=== PATIENT | female | born 1950 | race African-American/Black ===

== ENCOUNTER → 2023-09-22 12:32 | Outpatient (REF) | payer MEDICARE, SELFPAY | LOC: EMG 12:32 | PROVIDERS: ATTENDING PHYSICIAN Specialist | DX: R20.0 Anesthesia of skin (principal); E11.44 Type 2 diabetes mellitus with diabetic amyotrophy | CPT/HCPCS: 95886; 95911 ==

== ENCOUNTER → 2023-11-15 14:15 | Outpatient (REF) | payer MEDICARE, SELFPAY | LOC: PAVMRI 14:15 | PROVIDERS: ATTENDING PHYSICIAN Specialist; FAMILY PHYSICIAN Family Medicine | DX: G54.1 Lumbosacral plexus disorders (principal) | CPT/HCPCS: 72197; A9575 ==

== ENCOUNTER → 2023-11-30 07:56 | Outpatient (REF) | payer MEDICARE, SELFPAY | LOC: RAD 07:56 | PROVIDERS: ATTENDING PHYSICIAN Specialist; FAMILY PHYSICIAN Family Medicine | DX: I73.9 Peripheral vascular disease, unspecified (principal) | CPT/HCPCS: 93925 ==

== ENCOUNTER 2024-07-20 13:06 | Inpatient (IN) | payer MEDICARE, SELFPAY ==
[2024-07-20 10:00] VITALS: BMI 21.8
[2024-07-20 10:02] VITALS: BP 138/93
--- NOTE | 2024-07-20 10:19 | ED.GENMED ---
History of Present Illness
General
Chief Complaint: Weakness
Time Seen by Provider: 07/20/24 10:02
History of Present Illness
History of Present Illness:
Patient is a 74-year-old woman with history myasthenia gravis, diabetes, hypothyroidism, hypertension, hyperlipidemia presenting to the emergency department weakness. Patient states that she developed right lower extremity weakness many years ago.
Recently she developed some weakness to her left lower extremity that started in her toes and ascended up to below her knee. She states that she is also developed some right upper extremity weakness and some difficulty swallowing. She went to her
neurosurgeon as she recently had a laminectomy who advised her to talk to her neurologist who thought it was related to her myasthenia gravis and increased her medications. However given the patient has been unable to ambulate patient was sent in
from rehab for further evaluation. Patient denies any recent trauma. No saddle anesthesia. No recent spinal injections. No worsening back pain. No urinary incontinence or retention.
Per chart review there is a note from Dr. Chan. She saw patient after her L4-L5 TLIF. She states that she is healing well from postsurgery however she was concerned about her extremity weakness and sent a message to Dr. Moraes her neurologist. There
is a message from Dr. moraes who notes that her right leg pain got better after the L4-L5 laminectomy but then she developed left leg and right hand weakness as well as dysphagia. She is concerned about her myasthenia gravis worsening so she increased
her Mestinon to 90 mg every morning and afternoon and 60 mg at noon and bedtime. She also increase her prednisone 35 mg every morning. She is on CellCept.
Phy Exam
Physical Exam
Physical Exam:
GENERAL: in no acute distress
HEENT: normocephalic, extraocular movements intact, moist oral mucosa
NECK: normal inspection
RESPIRATORY: no respiratory distress, clear to auscultation bilaterally
CARDIOVASCULAR: regular rate and rhythm
ABDOMEN/: soft, non-distended, non-tender to palpation, no rebound or guarding
EXTREMITIES: non-tender, no edema/swelling
NEUROLOGIC: alert and oriented x 3, cranial nerves II-XII intact, right upper extremity strength 3/5, left upper extremity strength 5/5, right lower extremity strength 0/5, left lower extremity strength 1/5, normal sensation to light touch, normal
[id number], gait not tested formally
SKIN: warm
Course
Orders/Labs/Results
Orders:
Orders
07/20/24 10:18
CT Head W/o Iv Contrast Urgent
Comment:
Reason For Exam: weakness
Bladder Scan- Treatment ONCE
Comment: post void
07/20/24 10:19
Electrocardiogram (*1) Urgent
Reason for Study: Fatigue / Weakness
EKG- Treatment ONCE
07/20/24 10:27
NEUROLOGY CONSULT Urgent
Consulting Provider: Kvng Beck
Was physician already notified: Yes
07/20/24 10:32
Complete Blood Count/With Diff Urgent
Comprehensive Metabolic Panel Urgent
Free T4 Urgent
Thyroid profile [TSH Reflex To Free T4] Urgent
07/20/24 11:03
Urinalysis Reflex To Culture Urgent
Date Specimen was Collected: 07/20/24
Time Specimen was Collected: 11:02
Urine Microscopic Reflex Cult Urgent
Urine Culture Urgent
JERMAINE Source: U
Specimen Description:
Date Specimen was Collected: 07/20/24
Time Specimen was Collected: 11:02
07/20/24 12:04
CeFAZolin 2 grams IV Push NOW CeFAZolin 2 GRAM [Ancef] 2 grams in 10 ml IV NOW
Abnormal Lab Results
07/20/24 07/20/24
10:32 11:03
WBC 12.5 H 10^3/uL
(4.8-10.8)
MCHC 32.0 L g/dL
(33.0-37.0)
Abs Immat Gran (auto) 0.1 H 10^3/uL
(0-0.05)
Absolute Neuts (auto) 9.6 H 10^3/uL
(1.4-6.5)
Neutrophils % 76.9 H %
(42.2-75.2)
Lymphocytes % 17.2 L %
(20.5-51.1)
Chloride 117 H mmol/L
(98-107)
BUN 25 H mg/dl
(7-17)
Glucose 135 H mg/dl
(70-99)
Total Protein 5.1 L g/dl
(6.3-8.2)
Albumin 3.0 L g/dl
(3.5-5.0)
TSH (Reflex) 5.47 H uIU/ml
(0.47-4.68)
Ur Occult Blood Reflex 4+ A
(Negative)
Urine Nitrite (Reflex) Positive A
(Negative)
Leukocyte Esterase Rfl 3+ A
(Negative)
Urine RBC 40-50 A /HPF
(0-2)
Urine WBC (Reflex) >100 A /HPF
(0-5)
Urine Bacteria (Reflex) Many A
(Negative)
Urine Albumin (Reflex) 2+ A
(Neg - Trace)
07/20/24 10:32
07/20/24 10:32
Vital Signs
Initial and Last Documented VS:
Initial Vital Signs
Temp Pulse Resp BP Pulse Ox
97.7 F 73 18 138/93 100
07/20/24 10:02 07/20/24 10:02 07/20/24 10:02 07/20/24 10:02 07/20/24 10:02
Last Documented Vital Signs
Temp Pulse Resp BP Pulse Ox
97.7 F 73 18 138/93 100
07/20/24 10:02 07/20/24 10:02 07/20/24 10:02 07/20/24 10:02 07/20/24 10:02
MDM/Problems Addressed
Differential Diagnosis Includes:
Patient is a 74-year-old woman presenting to the emergency department with worsening weakness. Vitals are unremarkable and exam does show weakness to the right upper extremity as well as the left lower extremity which is new from patient's baseline
of weakness to her right lower extremity. Differential is broad but consists of flare of myasthenia gravis versus CVA versus UTI or metabolic derangement. I did consider cauda equina or cord compression or osteomyelitis or discitis however less
likely. Will check blood work urine and CT scan of the head. Will obtain postvoid residual. I did discuss with neurology who evaluated patient at bedside.
*Critical Care Note
Total Time (30-74mins, 75-104mins- exclusive of procedures): Not Applicable
Update Note
Update Note:
CT scan of the head per my interpretation with no acute abnormality. Her urine does appear infected. Given the weakness and she does have slightly elevated WBC will treat with IV Ancef secondary to patient's dysphagia. Discussed with hospitalist
who accepted patient to their service.
ED Attending Note
-
Portions of this chart may have been created with voice recognition software.� Occasional wrong word or��sound alike� substitutions may have occurred due to the inherent limitations of voice recognition software.
Discharge Plan
Departure
Patient Disposition: Admit
Date of Disposition: 07/20/24
Time of Disposition: 12:07
Presentation/result/management discussed w/ accepting MD/DO: Hospitalist
Discharge Problem:
Weakness, Acute UTI
Prescriptions:
No Action
methocarbamol 500 mg Tablet
500 mg PO QIDPRN PRN (Reason: muscle spasms)
metformin 500 mg Tablet
500 mg PO BID
sennosides [senna] 8.6 mg Tablet
17.2 mg PO BIDPRN PRN (Reason: constipation)
ascorbic acid (vitamin C) [Vitamin C] 1,000 mg Tablet
1,000 mg PO DAILY
acetaminophen [Tylenol] 325 mg Tablet
650 mg PO Q6HPRN PRN (Reason: mild pain)
prednisone 10 mg Tablet
35 mg PO DAILY
alendronate [Fosamax] 70 mg Tablet
70 mg PO WE
cyanocobalamin (vitamin B-12) 1,000 mcg Tablet
2,000 mcg PO DAILY
mycophenolate mofetil 500 mg Tablet
1,000 mg PO BID
hydromorphone 2 mg Tablet
2 mg PO Q4HPRN PRN (Reason: severe pain)
magnesium hydroxide [Milk of Magnesia] 400 mg/5 mL Suspension
2,400 mg PO [id number] PRN (Reason: constipation)
calcium carbonate [Calcium 500] 500 mg calcium (1,250 mg) Tablet
500 mg PO DAILY
levothyroxine [Synthroid] 50 mcg Tablet
50 mcg PO DAILY
bisacodyl [Dulcolax (bisacodyl)] 10 mg Suppository
10 mg NE DAILYPRN PRN (Reason: if no bm aftr mom)
pantoprazole [Protonix] 40 mg Tablet,Delayed Release (Dr/Ec)
40 mg PO BID
pyridostigmine bromide 60 mg Tablet
150 mg PO BID
lisinopril 10 mg Tablet
10 mg PO DAILY
Fleet Enema 19-7 gram/118 mL Enema
118 ml NE DAILYPRN PRN (Reason: if no bm aftr dulcalox)
docusate sodium [Colace] 100 mg Capsule
100 mg PO BID
morphine 15 mg Tablet Extended Release
15 mg PO Q12H
ondansetron [Zofran ODT] 4 mg Tablet,Disintegrating
4 mg PO Q6HPRN PRN (Reason: nausea)
enoxaparin [Lovenox] 40 mg/0.4 mL Syringe
40 mg SC DAILY
rosuvastatin [Crestor] 20 mg Tablet
20 mg PO DAILY
duloxetine [Cymbalta] 30 mg Capsule,Delayed Release(Dr/Ec)
30 mg PO BID
gabapentin 400 mg Tablet
800 mg PO TID
zinc oxide Paste
1 ea TOPICAL TID
zinc oxide Paste
1 ea TOPICAL DAILYPRN PRN (Reason: b/l buttock)
cholecalciferol (vitamin D3) [Vitamin D3] 50 mcg (2,000 unit) Capsule
50 mcg PO DAILY
menthol-zinc oxide [Moisture Barrier Ointment] 0.44-20.6 % Ointment
1 applic TOPICAL TID
Referrals:
PRIVATE,PHYSICIAN [Family Provider] -
Interventions
Interventions:
*Risk Screen - Suicide Last Done: 07/20/24 10:06
*Neglect/Abuse Screening Last Done: 07/20/24 10:06
Discharge Date and Time
Print Language: GREEK
[2024-07-20 10:44] LABS: % Basophils 0.2 % (0-2); % Eosinophils 0.3 % (0-6); % Immature Granulocytes 0.5 % (0-0.5); % Lymphocytes 17.2 % (20.5-51.1); % Monocytes 4.9 % (1.7-9.3); % Neutrophils 76.9 % (42.2-75.2); Absolute Immature Granulocytes 0.1 10^3/uL (0-0.05); Absolute Lymphocytes 2.2 10^3/uL (1.2-3.4); Absolute Monocytes 0.6 10^3/uL (0.1-0.6); Absolute Neutrophils 9.6 10^3/uL (1.4-6.5); Hematocrit 39.4 % (37.0-47.0); Hemoglobin 12.6 g/dL (12.0-16.0); Mean Corpuscular Hgb 29.2 pg (27.0-31.0); Mean Corpuscular Volume 91.2 fL (81.0-99.0); Mean Platelet Volume 9.5 fL (7.4-10.4); Nucleated Red Blood Cells % 0 %; Platelet Count 243 10^3/uL (130-400); Red Blood Cell Count 4.32 10^6/uL (4.20-5.40); Red Cell Dist. Width 14.3 % (11.5-14.5); White Blood Cell Count 12.5 10^3/uL (4.8-10.8)
[2024-07-20 10:58] LABS: ALT (SGPT) < 10 U/L (0-35); AST (SGOT) 15 U/L (14-36); Alkaline Phosphatase 126 U/L (38-126); Blood Urea Nitrogen 25 mg/dl (7-17); Calcium 9.2 mg/dl (8.4-10.2); Carbon Dioxide 27 mmol/L (22-30); Chloride 117 mmol/L (98-107); Estimated Creatinine Clearance 53 ml/min; Glucose 135 mg/dl (70-99); Potassium 4.9 mmol/L (3.5-5.1); Sodium 138 mmol/L (135-145); Total Bilirubin 0.4 mg/dl (0.2-1.3); Total Protein 5.1 g/dl (6.3-8.2); eGFR > 60.00
[2024-07-20 11:29] LABS: TSH Reflex To Free T4 5.47 uIU/ml (0.47-4.68)
[2024-07-20 11:34] LABS: Urine Albumin 2+ (Neg - Trace); Urine Bilirubin Negative (Negative); Urine Character Slightly Cloudy (Clear); Urine Color Yellow; Urine Glucose Negative (Negative); Urine Ketone Negative (Negative); Urine Leukocyte 3+ (Negative); Urine Nitrite Positive (Negative); Urine Occult Blood 4+ (Negative); Urine Urobilinogen Negative (Neg - 1+)
[2024-07-20 11:59] LABS: Urine Amorphous Seen; Urine Squamous Cell 21-25 /LPF (Few); Urine Urothelial Cell 16-20 /LPF (FEW)
[2024-07-20 11:59] LABS: Free T4 1.52 ng/dl (0.78-2.19)
[2024-07-20 12:01] LABS: Urine Red Blood Cell 40-50 /HPF (0-2)
[2024-07-20 12:02] LABS: Urine Bacteria Many (Negative); Urine White Cell >100 /HPF (0-5)
--- NOTE | 2024-07-20 12:12 | HPS.HSE ---
Family Physician
-
Family Physician: PHYSICIAN PRIVATE
Chief Complaint
-
progressively worsening weakness
History of Present Illness
74-year-old woman with history myasthenia gravis, diabetes, hypothyroidism, hypertension, hyperlipidemia presenting to the emergency department weakness. Patient states that she developed right lower extremity weakness many years ago. she developed
some weakness to her left lower extremity that started in her toes prior to her laminectomy but the weakness to left LE worsens since the surgery. She states that she is also developed some right upper extremity weakness and some difficulty
swallowing. she feels like her pills and food getting stuck. She went to her neurosurgeon as she recently had a laminectomy who advised her to talk to her neurologist who thought it was related to her myasthenia gravis and increased her
medications. Mestinon to 90 mg every morning and afternoon and 60 mg at noon and bedtime. She also increase her prednisone 35 mg every morning. She is on CellCept. However given the patient has been unable to ambulate patient was sent in from
rehab for further evaluation. Patient denies any recent trauma. No saddle anesthesia. No recent spinal injections. No worsening back pain. No urinary incontinence or retention. denied fever, chills, chest pain, sob. denied abdominal
pain,n,v,d.stated burning with urination since Yesterday.
head CT with no acute findings. UA positive. started on Ancef. admitting for further management.
Medical History
Past Medical History
Past Medical History: Reports Other
Additional Past Medical History:
Hypertension
Breast cancer
Diabetes
Hypothyroidism
Hypertension
Left breast hyperplasia
Past Surgical History: Reports Other
Additional Past Surgical History:
Bowel resection
Knee replacement
Thyroidectomy
Tubal ligation
Hip replacement
Left nipple exploration and excision of central duct
Social History
Tobacco: Non-smoker
Alcohol: None
Drug: None
Living: Other (rehab)
Family History
Family History: Not pertinent
Allergies / Home Medications
Allergies reflects when Allergies were last updated in [facility].
Home Medications with original date entered in [facility]
Allergy/Medication List:
Allergies
Allergy/AdvReac Type Severity Reaction Status Date / Time
aspirin Allergy Unknown Verified 07/20/24 10:01
oxycodone Allergy Unknown Verified 07/20/24 10:01
Home Medications
acetaminophen 325 mg tablet (Tylenol) 650 mg PO Q6HPRN PRN mild pain 07/20/24
alendronate 70 mg tablet (Fosamax) 70 mg PO WE 07/20/24
ascorbic acid (vitamin C) 1,000 mg tablet (Vitamin C) 1,000 mg PO DAILY 07/20/24
bisacodyl 10 mg rectal suppository (Dulcolax (bisacodyl)) 10 mg VT DAILYPRN PRN if no bm aftr mom 07/20/24
calcium carbonate 500 mg PO DAILY 07/20/24
cholecalciferol (vitamin D3) 50 mcg (2,000 unit) capsule (Vitamin D3) 50 mcg PO DAILY 07/20/24
cyanocobalamin (vitamin B-12) 1,000 mcg tablet 2,000 mcg PO DAILY 07/20/24
docusate sodium 100 mg capsule (Colace) 100 mg PO BID 07/20/24
duloxetine 30 mg capsule,delayed release (Cymbalta) 30 mg PO BID 07/20/24
enoxaparin 40 mg/0.4 mL subcutaneous syringe (Lovenox) 40 mg SC DAILY 07/20/24
gabapentin 400 mg tablet 800 mg PO TID 07/20/24
hydromorphone 2 mg tablet 2 mg PO Q4HPRN PRN severe pain 07/20/24
levothyroxine 50 mcg tablet (Synthroid) 50 mcg PO DAILY 07/20/24
lisinopril 10 mg tablet 10 mg PO DAILY 07/20/24
magnesium hydroxide 400 mg/5 mL oral suspension (Milk of Magnesia) 2,400 mg PO [id number] PRN constipation 07/20/24
menthol 0.44 %-zinc oxide 20.6 % topical ointment (Moisture Barrier Ointment) 1 applic topical TID 07/20/24
metformin 500 mg tablet 500 mg PO BID 07/20/24
methocarbamol 500 mg tablet 500 mg PO QIDPRN PRN muscle spasms 07/20/24
morphine 15 mg tablet,extended release 15 mg PO Q12H 07/20/24
mycophenolate mofetil 500 mg tablet 1,000 mg PO BID 07/20/24
ondansetron 4 mg disintegrating tablet 4 mg PO Q6HPRN PRN nausea 07/20/24
pantoprazole 40 mg tablet,delayed release (Protonix) 40 mg PO BID 07/20/24
prednisone 10 mg tablet 35 mg PO DAILY 07/20/24
pyridostigmine bromide 60 mg tablet 150 mg PO BID 07/20/24
rosuvastatin 20 mg tablet (Crestor) 20 mg PO DAILY 07/20/24
sennosides 8.6 mg tablet (senna) 17.2 mg PO BIDPRN PRN constipation 07/20/24
sodium phosphates 19 gram-7 gram/118 mL enema (Fleet Enema) 118 ml VT DAILYPRN PRN if no bm aftr dulcalox 07/20/24
zinc oxide 1 ea topical DAILYPRN PRN b/l buttock 07/20/24
zinc oxide 1 ea topical TID b/l buttock 07/20/24
Review of Systems
-
Constitutional: Reports No Symptoms
EENT: Reports No Symptoms
Respiratory: Reports No Symptoms
Cardiac: Reports No Symptoms
Abdomen/GI: Reports No Symptoms
: Reports No Symptoms
Musculoskeletal: Reports No Symptoms
Skin: Reports No Symptoms
Neurological: Reports Weakness
Endocrine: Reports No Symptoms
Hematologic/Lymphatic: Reports No Symptoms
Psych: Reports No Symptoms
Physical Exam
Vital Signs
Vital Signs
Temp Pulse Resp BP Pulse Ox
97.7 F 73 18 138/93 100
07/20/24 10:02 07/20/24 10:02 07/20/24 10:02 07/20/24 10:02 07/20/24 10:02
Physical Exam
General: Well Developed, Well Nourished and No Apparent Distress
HEENT: NormoCephalic, Moist mucous membranes and Atraumatic
Respiratory: Clear
Cardiac: S1/S2 and Regular Rhythm; No Murmur or Rub
GI: Soft, Non Tender, Non Distended and Normal Bowel Sounds; No Organomegaly
Rectal: Deferred by Provider
Musculoskeletal: No Clubbing, No Cyanosis and No Edema
Skin: No Rash
Neuro: Other (all extremities are weak)
Psych: Calm
Laboratory Results
-
07/20/24 10:32
07/20/24 10:32
Laboratory Results
Total Bilirubin 0.4 mg/dl (0.2-1.3) 07/20/24 10:32
AST 15 U/L (14-36) 07/20/24 10:32
ALT < 10 U/L (0-35) 07/20/24 10:32
Alkaline Phosphatase 126 U/L (38-126) 07/20/24 10:32
Data Reviewed
-
CT Scan: Report Reviewed by me
Lab Data: Labs Reviewed by me
Impression/Plan
-
#Right upper extremities and left lower extremities Weakness//Dysphagia r/o CVA/ Myasthenia gravis flare
-head CT with no acute intracranial abnormality
-PT OT
-Speech consult obtain A1c, lipid
-Obtain MRI
-Aspirin and statin continued
-Neurology consulted
-keep patient NPO, until speech evaluated
#History of myasthenia gravis
-meds from home continued
#Weakness globally secondary to urinary tract fraction
-WBCs 12.5, positive UA
-Ancef in ER. continue Ancef
-Tylenol prn for fever and pain
#Depression
Cymbalta continued
# Chronic pain
# Recent laminectomy
-Gabapentin continued
-Dilaudid, morphine continued
# Hypothyroidism
-Levothyroxine continued
-TSH elevated due to acute infection
# Hypertension
-Lisinopril continued with hold parameters
# Type 2 diabetes
-Metformin continued
-Sliding scale
-CHO diet
# GERD
-PPI continued
#hyperlipidemia
-Statin continued
# DVT prophy
-Lovenox
#CODE STATUS
-Full code
[2024-07-20] MEDS: ANCEF 10 IV (12:21)
--- NOTE | 2024-07-20 12:53 | W.PN.UPDATE ---
Update Note
Progress Note Update
This note serves as an addendum to the H&P by digital marketing manager RACHELLE
Earlene JAZZY
HPI
74F HX myasthenia gravis, diabetes, hypothyroidism, hypertension, hyperlipidemia, recent laminectomy seen at ER for weakness:
- Known chronic right lower extremity weakness for many years
- Recently she developed some weakness to left lower extremity that started in her toes and ascended up to below knee
- also some right upper extremity weakness
- associated some difficulty swallowing.
- Evaluated OP by Dr Hood ( P Neurologist) increased her medications for MG flare up
- However given the patient has been unable to ambulate patient was sent in from rehab for further evaluation. \\
Reviewed chart :
N Surgeon Dr. Chan
- saw patient after her L4-L5 TLIF.
- She states that she is healing well from postsurgery however she was concerned about her extremity weakness and sent a message to Dr. Hood her neurologist.
Primary Neuro: Dr. Hood
- Chr right leg pain got better after the L4-L5 laminectomy
- then she developed left leg and right hand weakness as well as dysphagia.
- concerned about her myasthenia gravis worsening
- so she increased her Mestinon to 90 mg every morning and afternoon and 60 mg at noon and bedtime.
- also increase her prednisone 35 mg every morning.
- on MACH[employer] CELLOPHANER CellCept.
ROS:
- denies any recent trauma
- No saddle anesthesia.
- No recent spinal injections.
- No worsening back pain.
- No urinary incontinence or retention.
PHX; see above
Reviewed VS: unremarkable
PE
Gen:Not toxic
HEENT: symmetric face . Nl speech
Neck: supple
Lungs: CTA
Cor: RRR S1 S2
Abdomen: Benign exam
LEGAL BILLING ANALYST: alert and oriented x 3
CN II-XII intact
Motor: RUEx strength 3/5 LUEx strength 5/5
RLEx strength 0/5 LLEx strength 1/5
Sensory: normal sensation to light touch
Coordination: normal [id number]
Gait: not tested formally
MS: no edema
Psych: normal mood and affect
Laboratory Tests
07/20/24 07/20/24
10:32 11:03
WBC 12.5 H
Creatinine 0.9
eGFR > 60.00
Glucose 135 H
Albumin 3.0 L
TSH (Reflex) 5.47 H
Urine Clarity Slightly cloudy
Urine Nitrite (Reflex) Positive A
Urine RBC 40-50 A
Urine WBC (Reflex) >100 A
Urine Bacteria (Reflex) Many A
UCx sent
HCT: No acute intracranial abnormality noted.
EKG:
NORMAL SINUS RHYTHM
RIGHT BUNDLE BRANCH BLOCK
LEFT ANTERIOR FASCICULAR BLOCK
BIFASCICULAR BLOCK
LEFT VENTRICULAR HYPERTROPHY WITH REPOLARIZATION ABNORMALITY ( R in aVL )
ABNORMAL ECG
WHEN COMPARED WITH ECG OF 20-JUN-2014 11:05,
NO SIGNIFICANT CHANGE WAS FOUND
NO PRIOR hospitalist admission:
ASSESSMENT & PLAN
74F HX Myasthenia Gravis , recent Laminectomy with improved chr b/l radiculopathic pain , recent OP escalation of Rx for OP MS flare but worsening Abimael weakness, dysphagia of thin liquids and pills and acute on chronic gait dysfunction:
Recent OP escalation of Rx for OP MS flare but worsening Abimael weakness, dysphagia and acute gait dysfunction
Dysphagia of thin liquids and pills
Differential is broad: flare of myasthenia gravis versus CVA versus UTI or metabolic derangement
- c/w current OP MG Rx:
- MACHINE BANDER AND CELLOPHANER Mestinon to 90 mg every morning and afternoon plus 60 mg at noon and bedtime.
- MACHINE B[employer] CELLOPHANER prednisone 35 mg every morning.
- c/w MACHINE BANDER AND CELLOPHANER Mycophenolate
- c/w MACHINE BANDER AND CELLOPHANER Pyridostigmine
- NPO except Medications with apple sause till ST consult eval for swallowing
- Neuro f/u consult
US suggestive of UTI suspect precipitating the MG flare up
- Afebrile
- f/u UCx
- agree with IV Cefazolin
Leucocytosis : could be due to Steroids or UTI or both
- trend WCC and T curve
HX DMT2
- c/w MACHINE BANDER AND CELLOPHANER Metformin
- add ISS low
Elevated TSH likely due to current stetroids and acute infection
HX hypothyroidism
- c/w current LT4 50 mcg daily, no need to escalde the dose
HX hypertension
- c/w MACH[employer] B[employer] CELLOPHANER lisinopril
HX hyperlipidemia
- c/w Crestor
Recent L4 L5 laminectomy
Hx chronic Narcotic dependent b/l radiculopathic pain
- c/w MACHINE BANDER [employer] CELLOPHANER Gabapentin and MACHINE BANDER AND CELLOPHANER Morphine q12H
- c/w MACH[employer] BANDER [employer] CELLOPHANER BW regime
- PT consult
DVT Px: LMWH
Code: Full
IMU due to MG flare concernig with risk of progressive resp muscle weakness
[2024-07-20 13:00] VITALS: BP 129/82
[2024-07-20 14:00] VITALS: BP 107/78
--- NOTE | 2024-07-20 15:22 | CON.NEURO ---
Neuro Assessment/Plan
Assessment
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
cannot be worsening of her MG as MG has no sensory symptoms
NIF -50, vital capacity 2.1 L
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
Plan
Spoke with Dr Woods, EMG Tuesday
currently refusing LP due to back pain when moving
so no IVIG, [facility] doesn't do synthetic albumin so no PLEX
third line agent would be...rituximab (not formulary) or cyclophosphamide
Consultation
Order
Date of Consultation: 07/20/24
Requesting Provider: Loki Sosa
Reason for Consult: weakness
Subjective/Objective
Subjective Data
Date of Service: July 20, 2024
Patient is a 74-year-old woman with history myasthenia gravis, diabetes, hypothyroidism, hypertension, hyperlipidemia presenting to the emergency department weakness. Patient states that she developed right lower extremity weakness many years ago,
and low back pain. She had a laminectomy and L4-L5 TLIF with neurosurgeon Dr Chan, after which her back pain improved but right leg weakness was unchanged. She improved and did ambulate with walker. Patient reports 6 weeks of progressive weakness
in her left leg, beginning in the foot and ascending. later developed right arm weakness, and more recently dysphagia. no bowel or bladder symptoms.
Yesterday she saw Dr Chan in the office hardware looked good, called patient's primary neurologist Dr Hood who spoke to patient by phone and was concerned for MG exacerbation, increased mestinon to 90/60/60 and prednisone to 35, and continued
CellCept. Notes from Dr Hood say
Objective Data
Vital Signs
Temp Pulse Resp BP Pulse Ox
36.5 C 69 15 107/78 99
07/20/24 10:02 07/20/24 14:50 07/20/24 14:50 07/20/24 14:00 07/20/24 14:01
Lab Results
07/20/24 10:32
07/20/24 10:32
Sodium 138 mmol/L (135-145) 07/20/24 10:32
Potassium 4.9 mmol/L (3.5-5.1) 07/20/24 10:32
BUN 25 mg/dl (7-17) H 07/20/24 10:32
Glucose 135 mg/dl (70-99) H 07/20/24 10:32
Calcium 9.2 mg/dl (8.4-10.2) 07/20/24 10:32
Patient Allergies
aspirin Allergy (Verified 07/20/24 10:01)
Unknown
oxycodone Allergy (Verified 07/20/24 10:01)
Unknown
Physical Exam
-
AAOx3, speech clear, language intact
VFF, EOMI, face symmetric
RUE 3-4/5 LUE 5-/5
b/l LE 1/5 palpated contractions only
Sensory decreased pin/vib RUE and b/l LE
DTR 2+ upper, surgically absent knees, no ankle jerk, no merritt, no babinski
Medications
-
Active Medications
Generic Name Dose Route Start Last Admin
Trade Name Freq PRN Reason Stop Dose Admin
Acetaminophen 650 mg 07/20/24 13:23
Acetaminophen 650 Mg Rectal Suppository RECTAL 08/17/24 13:22
Q4HPRN PRN
MORRIS, mild pain, or temp >100.4F
Acetaminophen 650 mg 07/20/24 13:23
Acetaminophen 325 Mg Tablet PO 08/17/24 13:22
Q4HPRN PRN
MORRIS, mild pain, or temp >100.4F
Ascorbic Acid 1,000 mg 07/21/24 08:00
Ascorbic Acid 500 Mg Tablet PO 08/18/24 07:59
DAILY JESSIE
Calcium Carbonate 500 mg 07/21/24 08:00
Calcium Carbonate 500 Mg Tablet PO 08/18/24 07:59
DAILY JESSIE
Cholecalciferol 50 mcg 07/21/24 08:00
Cholecalciferol (Vitamin D3) 50 Mcg Tablet (2,000 Units) PO 08/18/24 07:59
DAILY JESSIE
Cyanocobalamin 2,000 mcg 07/21/24 08:00
Cyanocobalamin 1,000 Mcg Tablet PO 08/18/24 07:59
DAILY JESSIE
Dextrose 12.5 grams 07/20/24 13:23
Dextrose 50% (0.5 Grams/Ml) 50 Ml Syringe IV 08/17/24 13:22
[id number] PRN
hypoglycemia
Protocol
Docusate Sodium 100 mg 07/20/24 20:00
Docusate Sodium 100 Mg Capsule PO 08/17/24 19:59
BID JESSIE
Duloxetine HCl 30 mg 07/20/24 20:00
Duloxetine Delayed Release 30 Mg Capsule PO 08/17/24 19:59
BID JESSIE
Enoxaparin Sodium 40 mg 07/21/24 08:00
Enoxaparin Sodium 40 Mg/0.4 Ml Syringe SC 08/18/24 07:59
DAILY JESSIE
Gabapentin 800 mg 07/20/24 16:00
Gabapentin 400 Mg Capsule PO 08/17/24 15:59
TID JESSIE
Glucagon 1 mg 07/20/24 13:23
Glucagon 1 Mg Vial IM 08/17/24 13:22
PRN PRN
hypoglycemia
Protocol
Hydromorphone HCl 2 mg 07/20/24 13:23
Hydromorphone 2 Mg Tablet PO 08/03/24 13:22
Q4HPRN PRN
severe pain
Insulin Aspart 0 units 07/20/24 16:30
Insulin Aspart Low Resistance 300 Units/3 Ml Pen.Injctr SC 08/17/24 16:29
AC JESSIE
Protocol
Levothyroxine Sodium 50 mcg 07/21/24 06:00
Levothyroxine 50 Mcg Tablet PO 08/18/24 05:59
DAILY @ 0600 JESSIE
Lisinopril 10 mg 07/21/24 08:00
Lisinopril 10 Mg Tablet PO 08/18/24 07:59
DAILY JESSIE
Metformin HCl 500 mg 07/20/24 17:00
Metformin 500 Mg Regular Release Tablet PO 08/17/24 16:59
BID AT 0800,1700 JESSIE
Morphine Sulfate 15 mg 07/20/24 20:00
Morphine 15 Mg Extended Release Tablet PO 08/03/24 19:59
Q12 JESSIE
Mycophenolate Mofetil 1,000 mg 07/20/24 20:00
Mycophenolate 500 Mg Tablet PO 08/17/24 19:59
BID JESSIE
Pantoprazole Sodium 40 mg 07/20/24 20:00
Pantoprazole 40 Mg Delayed Release Tablet PO 08/17/24 19:59
BID JESSIE
Prednisone 30 mg/ Prednisone 5 35 mg 07/21/24 08:00
mg PO 08/18/24 07:59
DAILY JESSIE
Pyridostigmine [place] 150 mg 07/20/24 20:00
Pyridostigmine 60 Mg Tablet PO 08/17/24 19:59
BID JESSIE
Rosuvastatin Calcium 20 mg 07/21/24 08:00
Rosuvastatin (Crestor) 20 Mg Tablet PO 08/18/24 07:59
DAILY JESSIE
Sodium Chloride 0 flush 07/20/24 14:00
Sodium Chloride 0.9% (Flush) Syringe IV 08/17/24 13:59
PER PROTOCOL JESSIE
Home Medications
�Medication �Instructions �Recorded
acetaminophen 325 mg tablet 650 mg PO Q6HPRN PRN mild pain 07/20/24
(Tylenol)
alendronate 70 mg tablet (Fosamax) 70 mg PO WE 07/20/24
ascorbic acid (vitamin C) 1,000 mg 1,000 mg PO DAILY 07/20/24
tablet (Vitamin C)
bisacodyl 10 mg rectal suppository 10 mg VA DAILYPRN PRN if no bm 07/20/24
(Dulcolax (bisacodyl)) aftr mom
calcium carbonate 500 mg PO DAILY 07/20/24
cholecalciferol (vitamin D3) 50 50 mcg PO DAILY 07/20/24
mcg (2,000 unit) capsule (Vitamin
D3)
cyanocobalamin (vitamin B-12) 2,000 mcg PO DAILY 07/20/24
1,000 mcg tablet
docusate sodium 100 mg capsule 100 mg PO BID 07/20/24
(Colace)
duloxetine 30 mg capsule,delayed 30 mg PO BID 07/20/24
release (Cymbalta)
enoxaparin 40 mg/0.4 mL 40 mg SC DAILY 07/20/24
subcutaneous syringe (Lovenox)
gabapentin 400 mg tablet 800 mg PO TID 07/20/24
hydromorphone 2 mg tablet 2 mg PO Q4HPRN PRN severe pain 07/20/24
levothyroxine 50 mcg tablet 50 mcg PO DAILY 07/20/24
(Synthroid)
lisinopril 10 mg tablet 10 mg PO DAILY 07/20/24
magnesium hydroxide 400 mg/5 mL 2,400 mg PO [id number] PRN 07/20/24
oral suspension (Milk of Magnesia) constipation
menthol 0.44 %-zinc oxide 20.6 % 1 applic topical TID 07/20/24
topical ointment (Moisture Barrier
Ointment)
metformin 500 mg tablet 500 mg PO BID 07/20/24
methocarbamol 500 mg tablet 500 mg PO QIDPRN PRN muscle spasms 07/20/24
morphine 15 mg tablet,extended 15 mg PO Q12H 07/20/24
release
mycophenolate mofetil 500 mg tablet 1,000 mg PO BID 07/20/24
ondansetron 4 mg disintegrating 4 mg PO Q6HPRN PRN nausea 07/20/24
tablet
pantoprazole 40 mg tablet,delayed 40 mg PO BID 07/20/24
release (Protonix)
prednisone 10 mg tablet 35 mg PO DAILY 07/20/24
pyridostigmine bromide 60 mg tablet 150 mg PO BID 07/20/24
rosuvastatin 20 mg tablet (Crestor) 20 mg PO DAILY 07/20/24
sennosides 8.6 mg tablet (senna) 17.2 mg PO BIDPRN PRN constipation 07/20/24
sodium phosphates 19 gram-7 118 ml VA DAILYPRN PRN if no bm 07/20/24
gram/118 mL enema (Fleet Enema) aftr dulcalox
zinc oxide 1 ea topical DAILYPRN PRN b/l 07/20/24
buttock
zinc oxide 1 ea topical TID b/l buttock 07/20/24
--- NOTE | 2024-07-20 15:43 | PTOTSP ---
Speech Therapy Evaluation:
Pt presented to with difficulty swallowing. Pt endorsed some difficulty swallowing in relation to effort, however has never experienced s/sx of aspiration otherwise. Pt most recently on pureed diet at rehab, however typically consumes a baseline
diet of regular/thins s/p VSE in late 2023/early 2024 at [facility].
Pt with acute on chronic risk factors for dysphagia (Myasthenia Gravis and concern for MG flare vs GB). On this date, pt demonstrated oral phase that was grossly functional for modified textures trialed. No overt s/sx of aspiration and pt passed 3oz
swallow screen. No reported difficulty with trials. 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
Recommend:
1. Initiate cautious IDDSI Level 4 (puree) and thin liquid diet
2. Medications crushed in puree
3. CLOSE supervision with meals. D/c oral diet if concerned for aspiration or if respiratory status worsens
4. Strict aspiration precautions
5. CAD PROGRAMMER to closely follow to monitor tolerance of diet, make further modifications, assess candidacy for diet upgrades, and determine if pt would benefit from VSE (although pt not appropriate at this time)
[2024-07-20 16:06] VITALS: BP 147/95
[2024-07-20] MEDS: DILAUDID 0.5 MG IV (16:46)
[2024-07-20] MEDS: NEURONTIN 800 MG PO ×2 (16:46→21:50)
[2024-07-20] MEDS: GLUCOPHAGE 500 MG PO (16:46)
--- NOTE | 2024-07-20 17:10 | PTCARENOTE ---
Pt received from ED via stretcher. Aox3. Neuro check and NIH completed with result of 11- see worklist. NSR on tele monitor. Pt c/o severe back pain, order received for one time dose of IVP Dilaudid- administered as ordered with good effect.
Assessment as documented. Able to make needs known, call phillips within reach.
--- NOTE | 2024-07-20 17:12 | PTCARENOTE ---
Pt reports she DOES NOT want any blood or human products.
[2024-07-20 17:27] LABS: Glucose - Point of Care 187 mg/dl (70-99)
[2024-07-20] MEDS: NOVOLOG FLEXPEN-LOW RESISTANCE 1 UNITS SC (17:52)
[2024-07-20 18:00] VITALS: BP 134/86
[2024-07-20 20:00] VITALS: BP 146/97
[2024-07-20] MEDS: CYMBALTA DELAYED RELEASE 30 MG PO (21:50)
[2024-07-20] MEDS: CELLCEPT 1000 MG PO (21:50)
[2024-07-20] MEDS: COLACE PO ×2 (21:50→22:16)
[2024-07-20] MEDS: MS CONTIN (EXTENDED RELEASE) 15 MG PO (21:51)
[2024-07-20] MEDS: PROTONIX 40 MG PO (21:51)
[2024-07-20] MEDS: MESTINON 150 MG PO (21:51)
[2024-07-20] MEDS: DILAUDID 2 MG PO (22:18)
[2024-07-20 23:24] LABS: Glucose - Point of Care 118 mg/dl (70-99)
[2024-07-21] VITALS (12 sets, daily range): BP systolic 86–142; BP diastolic 65–91; BMI 21.8
[2024-07-21] MEDS: SYNTHROID 50 MCG PO (05:46)
[2024-07-21 06:14] LABS: HDL Cholesterol 97 mg/dl; LDL Cholesterol, Calculated 17 mg/dl; Total Cholesterol 145 mg/dl (50-199); Triglyceride 157 mg/dl (10-149); Very Low Density Lipoprotein 31 mg/dl (0-30)
--- NOTE | 2024-07-21 06:41 | PTCARENOTE ---
Neuro checks unchanged. NIHS 12. Patient has multiple pills that are unable to be crushed. Pt able to swallow whole in applesauce. no s/s of aspiration. pain managed with prn po dilaudid. repositioned throughout the night, heels floated. pt thankful
for care. call phillips within reach.
--- NOTE | 2024-07-21 08:35 | W.PN.HOSP.TC ---
Today's Communication/Plan
-
see bold
Assessment / Plan
Assessment / Plan
# Bilateral upper extremity numbness
Head CT negative, brain MRI pending
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 Unlikely to be myasthenia gravis flare as myasthenia gravis has no sensory symptoms
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
Patient also declining lumbar puncture
Plan for EMG on Tuesday
Cleared by SPL for soft/bite-size diet
Continue PT/OT/SPL
#History of myasthenia gravis
Follows with Dr. Hood
Continue Mestinon 150 mg twice a day, prednisone to 35 mg in the morning, CellCept 1000 mg twice a day
#Acute urinary tract infection
Status post IV Ancef in the ER
Treat with IV Rocephin, follow-up on urine cultures
#Depression
Continue Cymbalta
#Chronic pain
#Recent laminectomy with w/ Rocio
Continue gabapentin, opioids
Add laxatives
# Hypothyroidism
Continue levothyroxine, recommend repeating TSH levels in 4-6 weeks
# Hypertension
Continue lisinopril
# Type 2 diabetes
Metformin, sliding scale insulin, carb controlled diet
# GERD
-PPI continued
#hyperlipidemia
-Statin continued
DVT prophylaxis�subcu Lovenox
Full code
Total time spent to see the patient on the floor, examine the patient, review data and lab results, discuss treatment plan with patient, nursing staff around 51 minutes.
Physical Exam
General: Appears chronically debilitated, no acute distress
HEENT: Normocephalic, Atraumatic, EOMI, MMM
Respiratory: Clear to Auscultation bilaterally
Cardiac: Normal S1/S2, Regular Rate and Rhythm
GI: Soft, Nontender, Nondistended, Normal Bowel Sounds
Extremities: No Clubbing, Cyanosis, or Edema
Neuro:
Bilateral upper extremities 3 out of 5
Bilateral lower extremities 1 out of 5
Anticipated Discharge: > 48 hours
Subjective/Interval History
-
Date of Service: July 21, 2024
Patient reports her weakness is the same. Complains of back pain. Denies chest pain, shortness of breath. No fever, no vomiting.
Objective Data
-
Vital Signs:
Vital Signs
Temp Pulse Resp BP Pulse Ox
97.5 F 63 10 133/88 96
07/21/24 07:25 07/21/24 06:30 07/21/24 06:30 07/21/24 06:00 07/21/24 06:30
[2024-07-21 09:16] LABS: Glucose - Point of Care 113 mg/dl (70-99)
[2024-07-21] MEDS: MS CONTIN (EXTENDED RELEASE) 15 MG PO ×2 (09:25→19:53)
[2024-07-21 09:26] LABS: Glycohemoglobin (HgbA1c) 7.3 % (4.0-5.6)
[2024-07-21] MEDS: NOVOLOG FLEXPEN-LOW RESISTANCE SC ×3 (09:30→18:23)
[2024-07-21] MEDS: CELLCEPT 1000 MG PO ×2 (09:40→19:51)
[2024-07-21] MEDS: MESTINON 150 MG PO ×2 (09:42→19:52)
[2024-07-21] MEDS: VITAMIN C 1000 MG PO (09:45)
[2024-07-21] MEDS: DELTASONE 35 MG PO (09:47)
[2024-07-21] MEDS: COLACE 100 MG PO (09:49)
[2024-07-21] MEDS: NEURONTIN 800 MG PO ×3 (09:49→19:53)
[2024-07-21] MEDS: PROTONIX 40 MG PO ×2 (09:49→19:53)
[2024-07-21] MEDS: OSCAL CAL 500 500 MG PO (09:50)
[2024-07-21] MEDS: ZESTRIL 10 MG PO (09:50)
[2024-07-21] MEDS: CRESTOR 20 MG PO (09:51)
[2024-07-21] MEDS: CYMBALTA DELAYED RELEASE 30 MG PO ×2 (09:51→19:53)
[2024-07-21] MEDS: VITAMIN B-12 2000 MCG PO (09:52)
[2024-07-21] MEDS: VITAMIN D3 (cholecalciferol) 50 MCG PO (09:52)
[2024-07-21] MEDS: GLUCOPHAGE 500 MG PO ×2 (11:09→17:16)
[2024-07-21] MEDS: LOVENOX 40 MG SC (11:09)
[2024-07-21] MEDS: DILAUDID 2 MG PO ×2 (11:43→17:16)
[2024-07-21 12:00] LABS: Glucose - Point of Care 128 mg/dl (70-99)
--- NOTE | 2024-07-21 13:30 | CM ---
Addendum entered by Madelaine Ghotra 07/21/24 14:00:
Patient states that her daughter was also being transferred to hospital, and her sister in [place] was talking about her going there but she couldn't until she got her affairs in order. Patient plan is to return to SNF until able to do so.
Original Note:
Patient seen at bedside in IMU. Patient from [facility] where she has been since 05/16/24. Patient status is unclear per nursing grounds maintenance supervisor, Ruby vazquez. Patient did have a family meeting 07/14/24, per nursing grounds maintenance supervisor when going home was
discussed with family supports but patient came to on 07/19/24. Nursing grounds maintenance supervisor was uncertain of prior functioning level. Patient has had several admissions to [facility] since her original admission to the SNF. CM called and left for
patient daughter, requesting call back to review patient discharge plan. CM will continue to follow for discharge planning needs.
Plan; return to SNF; pending availability of bed/
[2024-07-21] MEDS: SENOKOT-S PO (13:33)
[2024-07-21] MEDS: STERILE WATER FOR INJECTION 10 ML IV (13:34)
[2024-07-21] MEDS: ROCEPHIN 1000 MG IV (13:34)
[2024-07-21 17:51] LABS: Glucose - Point of Care 172 mg/dl (70-99)
[2024-07-21] MEDS: SENOKOT-S 2 TABLET PO (19:53)
[2024-07-21] MEDS: COLACE PO (20:09)
[2024-07-21 21:11] LABS: Glucose - Point of Care 178 mg/dl (70-99)
[2024-07-22] VITALS (21 sets, daily range): BP systolic 82–118; BP diastolic 59–94; PULSE 102–109; O2SAT 98–99
[2024-07-22] MEDS: SYNTHROID 50 MCG PO (04:50)
--- NOTE | 2024-07-22 06:59 | PTCARENOTE ---
pt with soft BPs overnight. unable to give prn dilaudid for pain as requested. KEIRA Beltran aware and spoke to pt about holding pain med. pt states she always has low BPs. pt understands staffs concern.
[2024-07-22] MEDS: NOVOLOG FLEXPEN-LOW RESISTANCE SC ×3 (08:17→17:37)
[2024-07-22 08:24] LABS: Glucose - Point of Care 116 mg/dl (70-99)
[2024-07-22] MEDS: OSCAL CAL 500 500 MG PO (08:32)
[2024-07-22] MEDS: GLUCOPHAGE 500 MG PO ×2 (08:33→17:27)
[2024-07-22] MEDS: MESTINON 150 MG PO ×2 (08:33→20:02)
[2024-07-22] MEDS: VITAMIN B-12 2000 MCG PO (08:35)
[2024-07-22] MEDS: CYMBALTA DELAYED RELEASE 30 MG PO ×2 (08:38→20:02)
[2024-07-22] MEDS: MS CONTIN (EXTENDED RELEASE) 15 MG PO ×2 (08:39→20:02)
[2024-07-22] MEDS: CRESTOR 20 MG PO (08:40)
[2024-07-22] MEDS: DELTASONE 35 MG PO (08:43)
[2024-07-22] MEDS: CELLCEPT 1000 MG PO ×2 (08:48→20:02)
[2024-07-22] MEDS: COLACE 100 MG PO (08:48)
[2024-07-22] MEDS: SENOKOT-S PO ×2 (08:50→19:21)
[2024-07-22] MEDS: NEURONTIN 800 MG PO ×3 (08:52→21:50)
[2024-07-22] MEDS: VITAMIN D3 (cholecalciferol) 50 MCG PO (08:53)
[2024-07-22] MEDS: PROTONIX 40 MG PO ×2 (08:53→20:02)
[2024-07-22] MEDS: VITAMIN C 1000 MG PO (08:53)
[2024-07-22] MEDS: ZESTRIL PO (08:54)
[2024-07-22] MEDS: LOVENOX 40 MG SC (08:55)
--- NOTE | 2024-07-22 09:37 | W.PN.HOSP.TC ---
Today's Communication/Plan
-
Stable for telemetry
Assessment / Plan
Assessment / Plan
#New right arm weakness
#New left leg weakness
Head CT negative, brain MRI neg
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 Unlikely to be myasthenia gravis flare as myasthenia gravis has no sensory symptoms
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
Patient also declining lumbar puncture
Plan for albumin and possible plasmapheresis, plan for EMG on Tuesday
Cleared by SPL for soft/bite-size diet
Continue PT/OT/SPL
#History of myasthenia gravis
Follows with Dr. Hood
Continue Mestinon 150 mg twice a day, prednisone to 35 mg in the morning, CellCept 1000 mg twice a day
#Acute urinary tract infection
Status post IV Ancef in the ER
Treat with IV Rocephin, urine cultures growing gram-negative bacilli, follow-up on ID and sensitivities
#Depression
Continue Cymbalta
#Chronic pain
#Recent laminectomy with w/ Rocio at [facility]
Continue gabapentin, opioids
Added laxatives
# Hypothyroidism
Continue levothyroxine, recommend repeating TSH levels in 4-6 weeks
# Hypertension
Continue lisinopril
# Type 2 diabetes
Metformin, sliding scale insulin, carb controlled diet
# GERD
-PPI continued
#hyperlipidemia
-Statin continued
DVT prophylaxis�subcu Lovenox
Full code
Total time spent to see the patient on the floor, examine the patient, review data and lab results, discuss treatment plan with patient, nursing staff around 41 minutes.
Physical Exam
General: Appears chronically debilitated, no acute distress
HEENT: Normocephalic, Atraumatic, EOMI, MMM
Respiratory: Clear to Auscultation bilaterally
Cardiac: Normal S1/S2, Regular Rate and Rhythm
GI: Soft, Nontender, Nondistended, Normal Bowel Sounds
Extremities: No Clubbing, Cyanosis, or Edema
Neuro:
Bilateral upper extremities 3 out of 5
Bilateral lower extremities 1 out of 5
Anticipated Discharge: > 48 hours
Subjective/Interval History
-
Date of Service: July 22, 2024
Patient reports that her weakness is the same. Denies dysphagia. No chest pain, no vomiting. No fever.
Objective Data
-
Vital Signs:
Vital Signs
Temp Pulse Resp BP Pulse Ox
98.3 F 80 14 93/68 98
07/22/24 07:35 07/22/24 06:00 07/22/24 06:00 07/22/24 08:54 07/22/24 06:10
--- NOTE | 2024-07-22 09:59 | W.PN.NEURO.1 ---
Today's Communication / Plan
-
EMG tomorrow
Neuro Assessment/Plan
Assessment
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
cannot be worsening of her MG as MG has no sensory symptoms
NIF -50, vital capacity 2.1 L
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
MRI imgs rev'd, normal
Plan
Spoke with Dr Woods, EMG Tuesday
currently refusing LP due to back pain when moving
no blood products, so no IVIG but today she is willing to take albumin so if GBS we can at least plasmapheresis her
Subjective/Objective
Subjective Data
Date of Service: July 22, 2024
feels about the same
Objective Data
Vital Signs
Temp Pulse Resp BP Pulse Ox
36.8 C 80 14 93/68 98
07/22/24 07:35 07/22/24 06:00 07/22/24 06:00 07/22/24 08:54 07/22/24 06:10
Lab Results
07/20/24 10:32
07/20/24 10:32
Sodium 138 mmol/L (135-145) 07/20/24 10:32
Potassium 4.9 mmol/L (3.5-5.1) 07/20/24 10:32
BUN 25 mg/dl (7-17) H 07/20/24 10:32
Glucose 135 mg/dl (70-99) H 07/20/24 10:32
Calcium 9.2 mg/dl (8.4-10.2) 07/20/24 10:32
LDL Cholesterol, Calc 17 mg/dl 07/21/24 05:38
Patient Allergies
aspirin Allergy (Verified 07/20/24 10:01)
Unknown
oxycodone Allergy (Verified 03/14/25 10:01)
Unknown
Physical Exam
-
AAOx3, speech clear, language intact
VFF, EOMI, face symmetric
RUE 3-4/5 LUE 5-/5
b/l LE 1/5 palpated contractions only
Sensory decreased pin/vib RUE and b/l LE
DTR 2+ upper, surgically absent knees, no ankle jerk, no merritt, no babinski
[2024-07-22 12:25] LABS: Glucose - Point of Care 195 mg/dl (70-99)
[2024-07-22] MEDS: STERILE WATER FOR INJECTION 10 ML IV (14:15)
[2024-07-22] MEDS: ROCEPHIN 1000 MG IV (14:15)
[2024-07-22 17:25] LABS: Glucose - Point of Care 273 mg/dl (70-99)
[2024-07-22] MEDS: DILAUDID 2 MG PO ×2 (17:32→23:05)
[2024-07-22] MEDS: COLACE PO (19:21)
--- NOTE | 2024-07-22 20:41 | PTCARENOTE ---
report given to Damaris Alba RN. pt moved to floor with all belongings without issues.
[2024-07-22 21:56] LABS: Glucose - Point of Care 182 mg/dl (70-99)
--- NOTE | 2024-07-22 22:33 | PTCARENOTE ---
Pt had a 10 beat run of vtach. Pt is asymptomatic. SLD INCLUSION TEACHER notified- no new orders at this time.
[2024-07-23 03:57] VITALS: BP 109/72
[2024-07-23] MEDS: SYNTHROID 50 MCG PO (05:30)
[2024-07-23 07:30] VITALS: BP 121/75
[2024-07-23] MEDS: NOVOLOG FLEXPEN-LOW RESISTANCE SC ×3 (08:18→18:31)
[2024-07-23] MEDS: VITAMIN B-12 2000 MCG PO (08:19)
[2024-07-23] MEDS: ZESTRIL 10 MG PO (08:19)
[2024-07-23] MEDS: VITAMIN C 1000 MG PO (08:19)
[2024-07-23] MEDS: DELTASONE 35 MG PO (08:19)
[2024-07-23] MEDS: CYMBALTA DELAYED RELEASE 30 MG PO ×2 (08:19→19:59)
[2024-07-23] MEDS: PROTONIX 40 MG PO ×2 (08:19→19:58)
[2024-07-23] MEDS: CRESTOR 20 MG PO (08:19)
[2024-07-23] MEDS: MS CONTIN (EXTENDED RELEASE) 15 MG PO (08:19)
[2024-07-23] MEDS: SENOKOT-S 2 TABLET PO ×2 (08:19→20:00)
[2024-07-23 08:20] LABS: Glucose - Point of Care 106 mg/dl (70-99)
[2024-07-23] MEDS: NEURONTIN 800 MG PO ×3 (08:20→19:58)
[2024-07-23] MEDS: CELLCEPT 1000 MG PO ×2 (08:20→19:59)
[2024-07-23] MEDS: GLUCOPHAGE 500 MG PO ×2 (08:20→20:00)
[2024-07-23] MEDS: COLACE 100 MG PO ×2 (08:20→20:00)
[2024-07-23] MEDS: MESTINON 150 MG PO ×2 (08:20→19:58)
[2024-07-23] MEDS: VITAMIN D3 (cholecalciferol) 50 MCG PO (08:20)
[2024-07-23] MEDS: OSCAL CAL 500 500 MG PO (08:20)
[2024-07-23] MEDS: LOVENOX 40 MG SC (08:21)
[2024-07-23 08:59] LABS: Blood Urea Nitrogen 25 mg/dl (7-17); Calcium 8.6 mg/dl (8.4-10.2); Carbon Dioxide 26 mmol/L (22-30); Chloride 110 mmol/L (98-107); Estimated Creatinine Clearance 47 ml/min; Glucose 104 mg/dl (70-99); Magnesium 1.7 mg/dl (1.6-2.3); Phosphorus 2.6 mg/dl (2.5-4.5); Potassium 3.9 mmol/L (3.5-5.1); Sodium 134 mmol/L (135-145); eGFR 58.75
[2024-07-23 09:05] LABS: Hemoglobin 10.5 g/dL (12.0-16.0); Mean Corp Hgb Conc. 30.9 g/dL (33.0-37.0); Mean Corpuscular Hgb 28.3 pg (27.0-31.0); Mean Corpuscular Volume 91.6 fL (81.0-99.0); Mean Platelet Volume 9.3 fL (7.4-10.4); Platelet Count 192 10^3/uL (130-400); Red Blood Cell Count 3.71 10^6/uL (4.20-5.40); Red Cell Dist. Width 14.2 % (11.5-14.5); White Blood Cell Count 8.2 10^3/uL (4.8-10.8)
[2024-07-23 11:50] VITALS: BP 120/69
[2024-07-23 12:33] LABS: Glucose - Point of Care 164 mg/dl (70-99)
--- NOTE | 2024-07-23 12:38 | NS.EMG ---
Electromyogram (EMG) Study
EMG/NCS Summary
EMG/nerve conduction study of both upper and lower limbs was completed at the patient's bedside.
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
amyotrophy.
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
There are multiple possible etiologies of the peripheral nerve abnormalities including vasculitic neuropathy, diabetic, and others.
[2024-07-23] MEDS: STERILE WATER FOR INJECTION 10 ML IV (12:45)
[2024-07-23] MEDS: ROCEPHIN 1000 MG IV (12:45)
--- NOTE | 2024-07-23 13:44 | W.PN.NEURO.1 ---
Today's Communication / Plan
-
Goal of relative normoglycemia
Rehabilitation evaluations and treatment
Check blood work for potential metabolic abnormalities in addition to diabetes
Continue vitamin B12 replacement
Continue prednisone 35 mg daily for now
Continue pyridostigmine 150 mg twice daily
Continue mycophenolate
Provide thiamine
Neuro Assessment/Plan
Assessment
Patient with previous diagnosis of myasthenia gravis presenting to this hospital with gradually progressive weakness in bilateral lower extremities also involving bilateral upper extremities distally greater than proximally. EMG study performed
prior to hospitalization suggested neuralgic amyotrophy. Repeated EMG study performed during this hospitalization confirms that diagnosis and suggests significant worsening.
The patient declines receiving blood based products.
Plan
Goal of relative normoglycemia
Consider initiation of outpatient Rozanolixizumab-ken
Rehabilitation evaluations and treatment
Check blood work for potential metabolic abnormalities in addition to diabetes
Continue vitamin B12 replacement
Continue prednisone 35 mg daily for now
Continue pyridostigmine 150 mg twice daily
Continue mycophenolate
Provide thiamine
Will follow
Subjective/Objective
Subjective Data
Date of Service: July 23, 2024
Right is weak and the left is getting weaker.
Objective Data
Vital Signs
Temp Pulse Resp BP Pulse Ox
36.8 C 74 16 120/69 98
07/23/24 11:50 07/23/24 11:50 07/23/24 11:50 07/23/24 11:50 07/23/24 11:50
Lab Results
07/23/24 08:05
07/23/24 08:05
Sodium 134 mmol/L (135-145) L 07/23/24 08:05
Potassium 3.9 mmol/L (3.5-5.1) 07/23/24 08:05
BUN 25 mg/dl (7-17) H 07/23/24 08:05
Glucose 104 mg/dl (70-99) H 07/23/24 08:05
Calcium 8.6 mg/dl (8.4-10.2) 07/23/24 08:05
Phosphorus 2.6 mg/dl (2.5-4.5) 07/23/24 08:05
LDL Cholesterol, Calc 17 mg/dl 07/21/24 05:38
Patient Allergies
aspirin Allergy (Verified 07/20/24 10:01)
Unknown
oxycodone Allergy (Verified 07/20/24 10:01)
Unknown
Review of Systems
-
History Source: Patient
All other systems: Reviewed and negative
EENT: Negative Decreased Vision or Swallowing Difficulty
Respiratory: Negative Trouble Breathing
Cardiac: Negative Chest Pain
Abdomen/GI: Diarrhea; Negative Incontinence of Stool
Genitourinary: Negative Incontinence
Musculoskeletal: Back Pain; Negative Neck Pain
Neuro: Negative Dizzy or Headache
Physical Exam
-
General: No Apparent Distress and Appears Stated Age
Eyes: Round OU, Eagle Conjunctivae and No Ptosis
HEENT: Anicteric and Moist Mucous Membranes
Neck: Full Range of Motion
Respiratory: No Dyspnea
Cardiac: No JVD
Skin: Unremarkable
Extremities: No Clubbing, No Cyanosis and No Edema
Psych: Negative Intact Judgement/Insight
Extended Neurological Exam
Mood & Affect: Mood Unremarkable and Affect Unremarkable
Attention Span & Concentration: Awake, Alert and Interactive
Memory: Unremarkable
Tremor: Hand Tremor Absent and Head Tremor Absent
Speech: Quality Unremarkable and Quantity Unremarkable
Cranial Nerve II: Left Eye: Pupillary Size Unremarkable and Visual Schaeffer Grossly Intact
Cranial Nerve II: Right Eye: Pupillary Size Unremarkable and Visual Schaeffer Grossly Intact
Cranial Nerves III, IV, : Extraocular Movement: Extraocular Movement Full in all Directions
Cranial Nerve VII: Facial Symmetry: Normal Facial Symmetry
Cranial Nerve VIII: Hearing: Unremarkable Hearing to Normal Conversational Volume
Cranial Nerves IX, X: Palate Movement: Palate Elevation Symmetric
Muscle Strength, Overall: Other (trace in RLE proximally, otherwise absent in LEs; unable to lift RUE off bed, LUE is off bed for > 3 seconds)
Muscle Bulk & Tone: Bulk Unremarkable and Tone Unremarkable
Deep Tendon Reflexes: Trace Throughout
Touch Sensation: Unremarkable
Coordination: Reaches for Objects without Difficulty
Babinski Sign: Absent Bilaterally
Gait & Station: Unable to Assess
Data Reviewed
-
MRI Head: Report Reviewed
Labs: Report Reviewed
Reviewed with: Physician and Patient
Old Records: Summarized
Medications
-
Medications:
Generic Name Dose Route Start Last Admin
Trade Name Freq PRN Reason Stop Dose Admin
Acetaminophen 650 mg 07/20/24 13:23
Acetaminophen 650 Mg Rectal Suppository RECTAL 08/17/24 13:22
Q4HPRN PRN
MORRIS, mild pain, or temp >100.4F
Acetaminophen 650 mg 07/20/24 13:23
Acetaminophen 325 Mg Tablet PO 08/17/24 13:22
Q4HPRN PRN
MORRIS, mild pain, or temp >100.4F
Ascorbic Acid 1,000 mg 07/21/24 08:00 07/23/24 08:19
Ascorbic Acid 500 Mg Tablet PO 08/18/24 07:59 1,000 mg
DAILY JESSIE Administration
Calcium Carbonate 500 mg 07/21/24 08:00 07/23/24 08:20
Calcium Carbonate 500 Mg Tablet PO 08/18/24 07:59 500 mg
DAILY JESSEI Administration
Ceftriaxone Sodium 1,000 mg 07/21/24 13:00 07/23/24 12:45
Ceftriaxone 1000 Mg / 10 Ml Vial IV 1,000 mg
Q24H JESSIE Administration
Cholecalciferol 50 mcg 07/21/24 08:00 07/23/24 08:20
Cholecalciferol (Vitamin D3) 50 Mcg Tablet (2,000 Units) PO 08/18/24 07:59 50 mcg
DAILY JESSIE Administration
Cyanocobalamin 2,000 mcg 07/21/24 08:00 07/23/24 08:19
Cyanocobalamin 1,000 Mcg Tablet PO 08/18/24 07:59 2,000 mcg
DAILY JESSIE Administration
Dextrose 12.5 grams 07/20/24 13:23
Dextrose 50% (0.5 Grams/Ml) 50 Ml Syringe IV 08/17/24 13:22
[id number] PRN
hypoglycemia
Protocol
Docusate Sodium 100 mg 07/20/24 20:00 07/23/24 08:20
Docusate Sodium 100 Mg Capsule PO 08/17/24 19:59 100 mg
BID JESSIE Administration
Duloxetine HCl 30 mg 07/20/24 20:00 07/23/24 08:19
Duloxetine Delayed Release 30 Mg Capsule PO 08/17/24 19:59 30 mg
BID JESSIE Administration
Enoxaparin Sodium 40 mg 07/21/24 08:00 07/23/24 08:21
Enoxaparin Sodium 40 Mg/0.4 Ml Syringe SC 08/18/24 07:59 40 mg
DAILY JESSIE Administration
Gabapentin 800 mg 07/20/24 16:00 07/23/24 08:20
Gabapentin 400 Mg Capsule PO 08/17/24 15:59 800 mg
TID JESSIE Administration
Glucagon 1 mg 07/20/24 13:23
Glucagon 1 Mg Vial IM 08/17/24 13:22
PRN PRN
hypoglycemia
Protocol
Hydromorphone HCl 2 mg 07/20/24 13:23 07/22/24 23:05
Hydromorphone 2 Mg Tablet PO 08/03/24 13:22 2 mg
Q4HPRN PRN Administration
severe pain
Insulin Aspart 0 units 07/20/24 16:30 07/23/24 12:45
Insulin Aspart Low Resistance 300 Units/3 Ml Pen.Injctr SC 08/17/24 16:29 Not Given
AC JESSIE
Protocol
Levothyroxine Sodium 50 mcg 07/21/24 06:00 07/23/24 05:30
Levothyroxine 50 Mcg Tablet PO 08/18/24 05:59 50 mcg
DAILY @ 0600 JESSIE Administration
Lisinopril 10 mg 07/21/24 08:00 07/23/24 08:19
Lisinopril 10 Mg Tablet PO 08/18/24 07:59 10 mg
DAILY JESSIE Administration
Metformin HCl 500 mg 07/20/24 17:00 07/23/24 08:20
Metformin 500 Mg Regular Release Tablet PO 08/17/24 16:59 500 mg
BID AT 0800,1700 JESSIE Administration
Morphine Sulfate 15 mg 07/20/24 20:00 07/23/24 08:19
Morphine 15 Mg Extended Release Tablet PO 08/03/24 19:59 15 mg
Q12 JESSIE Administration
Mycophenolate Mofetil 1,000 mg 07/20/24 20:00 07/23/24 08:20
Mycophenolate 500 Mg Tablet PO 08/17/24 19:59 1,000 mg
BID JESSIE Administration
Pantoprazole Sodium 40 mg 07/20/24 20:00 07/23/24 08:19
Pantoprazole 40 Mg Delayed Release Tablet PO 08/17/24 19:59 40 mg
BID JESSIE Administration
Polyethylene Glycol 17 grams 07/21/24 13:00 07/23/24 08:25
Polyethylene Glycol Powder 17 Grams Packet PO 08/18/24 12:59 Not Given
DAILY JESSIE
Prednisone 30 mg/ Prednisone 5 35 mg 07/21/24 08:00 07/23/24 08:19
mg PO 08/18/24 07:59 35 mg
DAILY JESSIE Administration
Pyridostigmine [place] 150 mg 07/20/24 20:00 07/23/24 08:20
Pyridostigmine 60 Mg Tablet PO 08/17/24 19:59 150 mg
BID JESSIE Administration
Rosuvastatin Calcium 20 mg 07/21/24 08:00 07/23/24 08:19
Rosuvastatin (Crestor) 20 Mg Tablet PO 08/18/24 07:59 20 mg
DAILY JESSIE Administration
Senna/Docusate Sodium 2 tablet 07/21/24 12:45 07/23/24 08:19
Docusate W/Senna (Brianne-Colace) Tablet PO 08/18/24 12:44 2 tablet
BID JESSIE Administration
Sodium Chloride 0 flush 07/20/24 14:00
Sodium Chloride 0.9% (Flush) Syringe IV 08/17/24 13:59
PER PROTOCOL JESSIE
Sterile Water 10 ml 07/21/24 13:00 07/23/24 12:45
Sterile Water For Injection 10 Ml Vial IV 08/18/24 12:59 10 ml
DAILY@1300 JESSIE Administration
[2024-07-23] MEDS: DILAUDID 2 MG PO (15:26)
[2024-07-23 15:35] VITALS: BP 109/67
[2024-07-23 17:09] LABS: Glucose - Point of Care 204 mg/dl (70-99)
--- NOTE | 2024-07-23 18:32 | PTCARENOTE ---
Addendum entered by Layla Granda RN 07/23/24 18:33:
and vitamin B1
Original Note:
pt sleepy, stated taking metformin at later time.
[2024-07-23 19:30] VITALS: BP 114/69
[2024-07-23] MEDS: VITAMIN B1 100 MG PO (20:00)
--- NOTE | 2024-07-23 20:50 | W.PN.UPDATE ---
Update Note
Progress Note Update
Patient has difficulty of swallowing meds at night including crushed meds.
-Will change diet to NPO for now, speech eval, and will start IVF at low rate.
[2024-07-23] MEDS: ZOFRAN 4 MG IV (21:27)
[2024-07-23] MEDS: MS CONTIN (EXTENDED RELEASE) PO (21:27)
[2024-07-23] MEDS: NSS 1000 IV (21:30)
[2024-07-23 23:34] VITALS: BP 119/79
[2024-07-24] VITALS (17 sets, daily range): BP systolic 92–173; BP diastolic 66–100
[2024-07-24 00:16] LABS: Glucose - Point of Care 156 mg/dl (70-99)
[2024-07-24] MEDS: DILAUDID 0.25 MG IV ×3 (05:08→14:29)
[2024-07-24] MEDS: SYNTHROID PO (05:09)
[2024-07-24 06:39] LABS: Glucose - Point of Care 99 mg/dl (70-99)
[2024-07-24] MEDS: NOVOLOG FLEXPEN-LOW RESISTANCE SC ×3 (08:33→18:01)
[2024-07-24] MEDS: MESTINON PO (09:19)
[2024-07-24] MEDS: CELLCEPT PO ×3 (09:19→22:06)
[2024-07-24] MEDS: DELTASONE PO (09:19)
[2024-07-24] MEDS: COLACE PO (09:22)
[2024-07-24] MEDS: CRESTOR PO (09:22)
[2024-07-24] MEDS: CYMBALTA DELAYED RELEASE PO (09:22)
[2024-07-24] MEDS: GLUCOPHAGE PO (09:22)
[2024-07-24] MEDS: NEURONTIN PO (09:23)
[2024-07-24] MEDS: SENOKOT-S PO (09:23)
[2024-07-24] MEDS: OSCAL CAL 500 PO (09:23)
[2024-07-24] MEDS: PROTONIX PO (09:23)
[2024-07-24] MEDS: MS CONTIN (EXTENDED RELEASE) PO (09:23)
[2024-07-24] MEDS: VITAMIN B-12 PO (09:23)
[2024-07-24] MEDS: VITAMIN C PO (09:23)
[2024-07-24] MEDS: VITAMIN D3 (cholecalciferol) PO (09:23)
[2024-07-24] MEDS: VITAMIN B1 PO (09:23)
[2024-07-24] MEDS: ZESTRIL PO (09:24)
--- NOTE | 2024-07-24 09:24 | CON.GI ---
Addendum entered and electronically signed by Aramis Johnson MD 07/24/24 16:40:
Patient seen and examined, agree with nurse practitioner note. Patient is 74-year-old female with past medical history as no including myasthenia gravis admitted with weakness and dysphagia. She states that she has occasional intermittent solid
food esophageal dysphagia the more recently's been having oropharyngeal dysphagia. This has been increasing and after evaluation with speech was noted to have severe oropharyngeal dysphagia. 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
She currently feels that she does not have any esophageal dysphagia and points to her larynx, and feels she has issues initiating swallow. Dobbhoff tube was placed without difficulty. On exam she has no significant tenderness.
1. Dysphagia: Oropharyngeal, likely secondary to myasthenia gravis, less likely other neurologic disorder, followed closely with neurology. She has no esophageal symptoms at present though does have a history of probable Schatzki's ring and
dilation in the past. Dobbhoff tube has been placed without difficulty. At this point we will hold on further GI workup for now.
Will sign off for now, please go back with any further questions.
Original Note:
Consultation
-
Date/Time Consultation Requested: 07/24/24829
Date/Time Consultation Performed: 07/24/24919
Requesting Provider: Marla Anton MD
Performing Provider: KEIRA Bull, Anthony Johnson MD
Reason for Consultation: dysphagia
Medical History
Chief Complaint / HPI
Chief Complaint: difficulty swallowing
History of Present Illness:
Pt is a 74yo with hx Myasthenia Gravis, DM, hypothyroidism, HTN, hyperlipidemia, breast duct excision, bowel resection for bowel incarceration 1969's, , breast duct surgery, prior lami with onset of weakness and dysphagia. She has been seen by
neurology with continued B12 supplement, Pyridostimgine, Prednisone, Mycophenolate and thiamine and normalization of FBS. Pt completed EMG prior and during admission with concern for neuralgic amyotrophy and repeat suggest worsening. Pt continues
with dysphagia and difficulty taking pills and asked to see. In review with patient noted with dysphagia intermittently for several years. She admits since last fall worsening symptoms. Symptoms are with solids and liquids. She admits to some wt
loss with eating less at home.
She otherwise admits to occasional GERD on Protonix BID, vomiting and regurgitation of food, and occasional rectal bleeding with hx hemorrhoids but denies odynophagia, diarrhea, constipation or black stool. Last EGD years ago and
colonoscopy about 3 years ago in [place].
Past Medical History
Past Medical History: HTN, Hypercholesterolemia, Hypothyroidism, NIDDM and Other (myasthenia gravis, breast ductal bx )
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
Social History
Tobacco: Non-Smoker
Alcohol: Occasional (in past )
Drug: None
Living: With Family
Employment: Retired
Family History
Family History: Other (daughter with pancreatic cyst and renal stones, denies hx colon CA or polyps)
Allergies / Home Medications
Allergy/AdvReac Type Severity Reaction Status Date / Time
aspirin Allergy Unknown Verified 07/20/24 10:01
oxycodone Allergy Unknown Verified 07/20/24 10:01
�Medication �Instructions �Recorded
acetaminophen 325 mg tablet 650 mg PO Q6HPRN PRN mild pain 07/20/24
(Tylenol)
alendronate 70 mg tablet (Fosamax) 70 mg PO WE 07/20/24
ascorbic acid (vitamin C) 1,000 mg 1,000 mg PO DAILY 07/20/24
tablet (Vitamin C)
bisacodyl 10 mg rectal suppository 10 mg RI DAILYPRN PRN if no bm 07/20/24
(Dulcolax (bisacodyl)) aftr mom
calcium carbonate 500 mg PO DAILY 07/20/24
cholecalciferol (vitamin D3) 50 50 mcg PO DAILY 07/20/24
mcg (2,000 unit) capsule (Vitamin
D3)
cyanocobalamin (vitamin B-12) 2,000 mcg PO DAILY 07/20/24
1,000 mcg tablet
docusate sodium 100 mg capsule 100 mg PO BID 07/20/24
(Colace)
duloxetine 30 mg capsule,delayed 30 mg PO BID 07/20/24
release (Cymbalta)
enoxaparin 40 mg/0.4 mL 40 mg SC DAILY 07/20/24
subcutaneous syringe (Lovenox)
gabapentin 400 mg tablet 800 mg PO TID 07/20/24
hydromorphone 2 mg tablet 2 mg PO Q4HPRN PRN severe pain 07/20/24
levothyroxine 50 mcg tablet 50 mcg PO DAILY 07/20/24
(Synthroid)
lisinopril 10 mg tablet 10 mg PO DAILY 07/20/24
magnesium hydroxide 400 mg/5 mL 2,400 mg PO [id number] PRN 07/20/24
oral suspension (Milk of Magnesia) constipation
menthol 0.44 %-zinc oxide 20.6 % 1 applic topical TID 07/20/24
topical ointment (Moisture Barrier
Ointment)
metformin 500 mg tablet 500 mg PO BID 07/20/24
methocarbamol 500 mg tablet 500 mg PO QIDPRN PRN muscle spasms 07/20/24
morphine 15 mg tablet,extended 15 mg PO Q12H 07/20/24
release
mycophenolate mofetil 500 mg tablet 1,000 mg PO BID 07/20/24
ondansetron 4 mg disintegrating 4 mg PO Q6HPRN PRN nausea 07/20/24
tablet
pantoprazole 40 mg tablet,delayed 40 mg PO BID 07/20/24
release (Protonix)
prednisone 10 mg tablet 35 mg PO DAILY 07/20/24
pyridostigmine bromide 60 mg tablet 150 mg PO BID 07/20/24
rosuvastatin 20 mg tablet (Crestor) 20 mg PO DAILY 07/20/24
sennosides 8.6 mg tablet (senna) 17.2 mg PO BIDPRN PRN constipation 07/20/24
sodium phosphates 19 gram-7 118 ml RI DAILYPRN PRN if no bm 07/20/24
gram/118 mL enema (Fleet Enema) aftr dulcalox
zinc oxide 1 ea topical DAILYPRN PRN b/l 07/20/24
buttock
zinc oxide 1 ea topical TID b/l buttock 07/20/24
Review of Systems
-
History Source: Patient
Constitutional: Reports Weight Loss and Fatigue
EENT: Reports No Symptoms
Respiratory: Reports No Symptoms
Cardiac: Reports No Symptoms
Abdomen/GI: Reports Vomiting (with regurtation )
: Reports Other (hx UTI's)
Musculoskeletal: Reports Other (LE weakness)
Skin: Reports No Symptoms
Neurological: Reports Weakness
Endocrine: Reports No Symptoms
Hematologic/Lymphatic: Reports No Symptoms
Vital Signs
Temp Pulse Resp BP Pulse Ox
97.6 F 72 16 116/80 98
07/24/24 07:30 07/24/24 07:30 07/24/24 07:30 07/24/24 07:30 07/24/24 07:30
Physical Exam
Exam
General: Well Developed, Well Nourished and No Apparent Distress
HEENT: Normocephalic and Anicteric
Respiratory: Clear
Cardiac: Regular Rhythm
GI: Soft, Non Tender and Non Distended
Musculoskeletal: No Clubbing and No Cyanosis
Skin: Warm and Dry
Neuro: Awake, Alert and AO x 3
Psych: Calm
Results
WBC 8.2 10^3/uL (4.8-10.8) 07/23/24 08:05
Hgb 10.5 g/dL (12.0-16.0) L 07/23/24 08:05
Hct 34.0 % (37.0-47.0) L 07/23/24 08:05
MCV 91.6 fL (81.0-99.0) 07/23/24 08:05
Plt Count 192 10^3/uL (130-400) D 07/23/24 08:05
Absolute Neuts (auto) 9.6 10^3/uL (1.4-6.5) H 07/20/24 10:32
Sodium 134 mmol/L (135-145) L 07/23/24 08:05
Potassium 3.9 mmol/L (3.5-5.1) 07/23/24 08:05
Chloride 110 mmol/L (98-107) H 07/23/24 08:05
Carbon Dioxide 26 mmol/L (22-30) 07/23/24 08:05
BUN 25 mg/dl (7-17) H 07/23/24 08:05
Creatinine 1.0 mg/dL (0.6-1.0) 07/23/24 08:05
Calcium 8.6 mg/dl (8.4-10.2) 07/23/24 08:05
Total Bilirubin 0.4 mg/dl (0.2-1.3) 07/20/24 10:32
AST 15 U/L (14-36) 07/20/24 10:32
ALT < 10 U/L (0-35) 07/20/24 10:32
Alkaline Phosphatase 126 U/L (38-126) 07/20/24 10:32
Diagnostic Image Results:
07/21/24 MRI Brain
No acute intracranial abnormality noted. Specifically, no acute infarct.
Prior GI Procedures:
EGD: last years ago in [place]
Colonoscopy: last 3 years ago in [place]
Assessment / Plan
-
Pt is a 74yo with hx Myasthenia Gravis, DM, hypothyroidism, HTN, hyperlipidemia, breast duct excision, bowel resection for bowel incarceration 1970's, , breast duct surgery, prior lami with onset of weakness and dysphagia. She has been seen by
neurology with continued B12 supplement, Pyridostimgine, Prednisone, Mycophenolate and thiamine and normalization of FBS. Pt completed EMG prior and during admission with concern for neuralgic amyotrophy and repeat suggest worsening. Pt continues
with dysphagia and difficulty taking pills and asked to see. In review with patient noted with dysphagia intermittently for several years. She admits since last fall worsening symptoms. Symptoms are with solids and liquids. She admits to some wt
loss with eating less at home.
-dysphagia
-LE weakness
-concern for MG flare
-weight loss
-hx intermittent dysphagia in past
other med problems:
-DM
-hypothyroidism
-HTN
-Hyperlipidemia
-prior lami
-breast ductal bx in past
-hx incarcerate bowel with resection 1969'
PLAN:
etiology of dysphagia with concern for neurologic process - MG flare
reviewed with speech with poor pharyngeal clearance and cough with liquid do not feel safe for barium swallow
hold barium study for today
DHT placed right nare at 55 cm without difficulty for temp feeding and meds -- will check X ray to confirm placement
will review with neurology and dietary
hold on EGD for now
neurology to review for further treatment of flare and continues with B12 supplement, Pyridostimgine, Prednisone, Mycophenolate and thiamine and normalization of FBS.
-
-
Thank you for consultation and allowing me to participate in the patient's care. Please call the ad operations associate GI physician during the after hours with any questions or concerns.
[2024-07-24] MEDS: LOVENOX 40 MG SC (09:29)
--- NOTE | 2024-07-24 09:30 | WOUNDNOTE ---
JAZMIN RN NOTE: Per nurse Lemuel, patient having 10/10 pain and requests we not see patient now. Will attempt to see later today if able or tomorrow.
[2024-07-24] MEDS: SOLU-MEDROL PF 40 MG IV (09:32)
--- NOTE | 2024-07-24 09:40 | W.PN.HOSP.TC ---
Today's Communication/Plan
-
Progress note of July 23
Assessment / Plan
Assessment / Plan
Physical Exam
General: Appears chronically debilitated, no acute distress
HEENT: Normocephalic, Atraumatic, EOMI, MMM
Respiratory: Clear to Auscultation bilaterally
Cardiac: Normal S1/S2, Regular Rate and Rhythm
GI: Soft, Nontender, Nondistended, Normal Bowel Sounds
Extremities: No Clubbing, Cyanosis, or Edema
Neuro: AAOX3, followed commands
Psych: calm
#New right arm weakness
#New left leg weakness
Head CT negative, brain MRI neg
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 Unlikely to be myasthenia gravis flare as myasthenia gravis has no sensory symptoms
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
Patient also declining lumbar puncture
plan for EMG today on Tuesday
Cleared by SPL for soft/bite-size diet
Continue PT/OT/SPL
#History of myasthenia gravis
Follows with Dr. Hood
Continue Mestinon 150 mg twice a day, prednisone to 35 mg in the morning, CellCept 1000 mg twice a day
#Acute urinary tract infection
Considered complicated due to underlying immunocompromised status, no fever, leukocytosis resolved. No flank pain.
Status post IV Ancef in the ER
Treat with IV Rocephin, urine cultures growing Escherichia coli Klebsiella pneumonia, both susceptible to Rocephin. Continue 10 days of antibiotic therapy
#Depression
Continue Cymbalta
# Hyponatremia, mild.
# History of dysphagia, continue with speech therapy recommendation
#Chronic pain
#Recent laminectomy with w/ Rocio at [facility]
Continue gabapentin, opioids
Added laxatives
# Hypothyroidism
Continue levothyroxine, recommend repeating TSH levels in 4-6 weeks
# Hypertension
Continue lisinopril
# Type 2 diabetes
Metformin, sliding scale insulin, carb controlled diet
# GERD
-PPI continued
#hyperlipidemia
-Statin continued
DVT prophylaxis�subcu Lovenox
Full code
Total time spent to see the patient on the floor, examine the patient, review data and lab results, discuss treatment plan with patient, nursing staff around 55 minutes.
Anticipated Discharge: > 48 hours
Subjective/Interval History
-
Date of Service: July 23, 2024
No chest pain
No sob
Objective Data
-
Vital Signs:
Vital Signs
Temp Pulse Resp BP Pulse Ox
97.6 F 72 16 116/80 98
07/24/24 07:30 07/24/24 07:30 07/24/24 07:30 07/24/24 07:30 07/24/24 07:30
I&O
07/23/24 07/24/24 07/25/24
06:59 06:59 06:59
Intake Total 900 / 900
Balance 900 / 900
--- NOTE | 2024-07-24 09:56 | PTOTSP ---
Speech Therapy
Reassessment after patient made NPO due to difficulty swallowing pills last evening.
Patient with overt signs of aspiration. Symptoms consistent with MG flare or GBS with suspected poor pharyngeal clearance and coughing on liquids. Do not feel patient can safely participate in barium swallow at this point given current dysphagia
symptoms.
Recommend
1. NPO given overt signs of aspiration.
2. Non-oral meds if possible. Otherwise, crushed in mildly thick liquid and presented by teaspoon.
3. VSE not recommended at this time as information obtained would likely not change current recommendations.
4. Aspiration precautions.
5. Oral care via suction toothbrush.
ST will follow and modify recommendations as appropriate. Will not instruct in lingual/pharyngeal strengthening exercises as this may further exacerbate weakness/dysphagia symptoms.
--- NOTE | 2024-07-24 10:27 | PN.CDI ---
CDI
- -
CDI:
Physician Documentation Request
Admit Date: 07/20/24 13:06
Dear Doctor Desean,
Please review the following and provide your response in the progress notes.
Clinical Indicators:
- 07/20 H&P 'chronic pain...Dilaudid, morphine continued'
- 07/24 PN 'opioids'
- Hydromorphone given x8
- Morphine sulphate given x 6
If possible, please provide further specificity as outlined below:
Opioid use with dependence
Opioid dependence
Other (please specify)
Use of terms such as suspected, likely, concern for, or probable (associated with a specific diagnosis that is being evaluated, monitored, or treated as if it exists) are acceptable and can be coded in the inpatient setting, when documented at the
time of discharge.
Thank you,
Isabella Salazar RN
CDI Specialist
Please use your independent medical judgment in providing your response.
--- NOTE | 2024-07-24 10:41 | W.PN.NEURO.1 ---
Today's Communication / Plan
-
Consult Hematology for assistance with Plasmapheresis, now needed due to dysphagia
Goal for plasmapheresis is a total of 5 treatments representing approximately 5 exchanges
Advance steroids from prednisone 35 mg daily to methylprednisolone 1 g daily x 5
Neuro Assessment/Plan
Assessment
Patient with previous diagnosis of myasthenia gravis presenting to this hospital with gradually progressive weakness in bilateral lower extremities also involving bilateral upper extremities distally greater than proximally.
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 Repeated EMG study performed during this hospitalization confirms that diagnosis and suggests significant worsening.
The patient initially was declining receipt of blood based products.
Developed dysphagia noted 07/24/2024, most likely secondary to worsening of myasthenia gravis
Plan
Consult Hematology for assistance with Plasmapheresis, now needed due to dysphagia
Goal for plasmapheresis is a total of 5 treatments representing approximately 5 exchanges
check fibrinogen levels
Consider initiation of outpatient Rozanolixizumab-ken
Rehabilitation evaluations and treatment
Check blood work for potential metabolic abnormalities in addition to diabetes
Continue vitamin B12 replacement
Advance steroids from prednisone 35 mg daily to methylprednisolone 1 g daily x 5
May continue pyridostigmine 150 mg twice daily
May continue mycophenolate
Provide thiamine
Will follow
Subjective/Objective
Subjective Data
Date of Service: July 24, 2024
Sharp pains from back into the legs.
Objective Data
Vital Signs
Temp Pulse Resp BP Pulse Ox
36.4 C 72 16 116/80 98
07/24/24 07:30 07/24/24 07:30 07/24/24 07:30 07/24/24 07:30 07/24/24 07:30
Lab Results
07/23/24 08:05
07/23/24 08:05
Sodium 134 mmol/L (135-145) L 07/23/24 08:05
Potassium 3.9 mmol/L (3.5-5.1) 07/23/24 08:05
BUN 25 mg/dl (7-17) H 07/23/24 08:05
Glucose 104 mg/dl (70-99) H 07/23/24 08:05
Calcium 8.6 mg/dl (8.4-10.2) 07/23/24 08:05
Phosphorus 2.6 mg/dl (2.5-4.5) 07/23/24 08:05
LDL Cholesterol, Calc 17 mg/dl 07/21/24 05:38
Patient Allergies
aspirin Allergy (Verified 07/20/24 10:01)
Unknown
oxycodone Allergy (Verified 07/20/24 10:01)
Unknown
Physical Exam
-
General: No Apparent Distress and Appears Stated Age
Eyes: Round OU, [place] Conjunctivae and No Ptosis
HEENT: Anicteric and Moist Mucous Membranes
Neck: Full Range of Motion
Respiratory: No Dyspnea
Cardiac: No JVD
Skin: Unremarkable
Extremities: No Clubbing, No Cyanosis and No Edema
Psych: Negative Intact Judgement/Insight
Extended Neurological Exam
Mood & Affect: Mood Unremarkable and Affect Unremarkable
Attention Span & Concentration: Awake and Interactive; Negative Alert
Memory: Unremarkable
Tremor: Hand Tremor Absent and Head Tremor Absent
Speech: Quality Unremarkable and Quantity Unremarkable
Cranial Nerve II: Left Eye: Pupillary Size Unremarkable and Visual Schaeffer Grossly Intact
Cranial Nerve II: Right Eye: Pupillary Size Unremarkable and Visual Schaeffer Grossly Intact
Cranial Nerves III, IV, : Extraocular Movement: Grossly Intact
Cranial Nerve VII: Facial Symmetry: Normal Facial Symmetry
Cranial Nerve VIII: Hearing: Unremarkable Hearing to Normal Conversational Volume
Cranial Nerves IX, X: Palate Movement: Palate Elevation Symmetric
Muscle Strength, Overall: Spontaneously Moves
Muscle Bulk & Tone: Bulk Unremarkable and Tone Unremarkable
Touch Sensation: Unremarkable
Coordination: Reaches for Objects without Difficulty
Gait & Station: Unable to Assess
Data Reviewed
-
Labs: Report Reviewed
Reviewed with: Physician, Nurse Practioner and Patient
Old Records: Summarized
Past History
Past History
ED Past Medical History: Other (Myasthenia gravis)
Family History
Family History: Other (reviewed and non-contributory)
Medications
-
Medications:
Generic Name Dose Route Start Last Admin
Trade Name Freq PRN Reason Stop Dose Admin
Acetaminophen 650 mg 07/20/24 13:23
Acetaminophen 650 Mg Rectal Suppository RECTAL 08/17/24 13:22
Q4HPRN PRN
MORRIS, mild pain, or temp >100.4F
Acetaminophen 650 mg 07/20/24 13:23
Acetaminophen 325 Mg Tablet PO 08/17/24 13:22
Q4HPRN PRN
MORRIS, mild pain, or temp >100.4F
Ceftriaxone Sodium 1,000 mg 07/21/24 13:00 07/23/24 12:45
Ceftriaxone 1000 Mg / 10 Ml Vial IV 1,000 mg
Q24H JESSIE Administration
Dextrose 12.5 grams 07/20/24 13:23
Dextrose 50% (0.5 Grams/Ml) 50 Ml Syringe IV 08/17/24 13:22
[id number] PRN
hypoglycemia
Protocol
Enoxaparin Sodium 40 mg 07/21/24 08:00 07/24/24 09:29
Enoxaparin Sodium 40 Mg/0.4 Ml Syringe SC 08/18/24 07:59 40 mg
DAILY JESSIE Administration
Glucagon 1 mg 07/20/24 13:23
Glucagon 1 Mg Vial IM 08/17/24 13:22
PRN PRN
hypoglycemia
Protocol
Hydromorphone HCl 0.25 mg 07/24/24 10:20
Hydromorphone 0.25 Mg/0.5 Ml Syringe IV 08/07/24 10:19
Q3HPRN PRN
mod to severe pain
Sodium Chloride 1,000 mls @ 125 mls/hr 07/24/24 08:45
Nss IV
.Q8H JESSIE
Insulin Aspart 0 units 07/20/24 16:30 07/24/24 08:33
Insulin Aspart Low Resistance 300 Units/3 Ml Pen.Injctr SC 08/17/24 16:29 Not Given
AC JESSIE
Protocol
Levothyroxine Sodium 50 mcg 07/21/24 06:00 07/24/24 05:09
Levothyroxine 50 Mcg Tablet PO 08/18/24 05:59 Not Given
DAILY @ 0600 JESSIE
Methylprednisolone Sodium Succinate 40 mg 07/24/24 08:45 07/24/24 09:32
Methylprednisolone Pf 40 Mg/Ml Vial IV 08/21/24 08:44 40 mg
DAILY JESSIE Administration
Mycophenolate Mofetil 1,000 mg 07/20/24 20:00 07/24/24 09:19
Mycophenolate 500 Mg Tablet PO 08/17/24 19:59 Not Given
BID JESSIE
Prednisone 30 mg/ Prednisone 5 35 mg 07/21/24 08:00 07/24/24 09:19
mg PO 08/18/24 07:59 Not Given
DAILY JESSIE
Pyridostigmine [place] 120 mg 07/24/24 11:00
Pyridostigmine 60 Mg Tablet PO 08/21/24 10:59
BID JESSIE
Sodium Chloride 0 flush 07/20/24 14:00
Sodium Chloride 0.9% (Flush) Syringe IV 08/17/24 13:59
PER PROTOCOL JESSIE
Sterile Water 10 ml 07/21/24 13:00 07/23/24 12:45
Sterile Water For Injection 10 Ml Vial IV 08/18/24 12:59 10 ml
DAILY@1300 JESSIE Administration
--- NOTE | 2024-07-24 10:46 | PN.CDI ---
CDI
- -
CDI:
Physician Documentation Request
Admit Date: 07/20/24 13:06
Dear Doctor Desean,
Please review the following and provide your response in the progress notes.
Clinical Indicators:
- 07/20 H&P 'chronic pain...Dilaudid, morphine continued'
- 07/23 PN 'opioids'
- Hydromorphone given x8
- Morphine sulphate given x 6
If possible, please provide further specificity as outlined below:
Opioid use with dependence
Opioid dependence
Other (please specify)
Use of terms such as suspected, likely, concern for, or probable (associated with a specific diagnosis that is being evaluated, monitored, or treated as if it exists) are acceptable and can be coded in the inpatient setting, when documented at the
time of discharge.
Thank you,
Isabella Salazar RN
CDI Specialist
Please use your independent medical judgment in providing your response.
--- NOTE | 2024-07-24 10:46 | PN.CDI ---
CDI
- -
CDI:
Physician Documentation Request
Admit Date: 07/20/24 13:06
Dear Doctor Desean,
Please review the following and provide your response in the progress notes.
Clinical Indicators:
- RN skin assessments indicate Stage 2 sacrum pressure injury, POA
Physician documentation of the type and location of wounds is required for compliant documentation. Based on the above clinical findings and your assessment, please provide the following in your progress note:
1. Location of the ulcer/wound, including laterality.
2. Type (etiology) of ulcer/wound:
- Diabetic ulcer
- Arterial (ischemic) ulcer
- Venous stasis ulcer
- Pressure (decubitus) ulcer
- Other
Use of terms such as suspected, likely, concern for, or probable (associated with a specific diagnosis that is being evaluated, monitored, or treated as if it exists) are acceptable and can be coded in the inpatient setting, when documented at the
time of discharge.
Thank you,
Isabella Salazar RN
CDI Specialist
Please use your independent medical judgment in providing your response.
*Source: National Pressure Ulcer Advisory Panel (NPUAP)
--- NOTE | 2024-07-24 10:48 | PN.CDI ---
Addendum entered and electronically signed by Marla Anton MD 07/24/24 11:40:
Stage 3 sacrum pressure injury POA
Original Note:
CDI
- -
CDI:
Physician Documentation Request
Admit Date: 07/20/24 13:06
Dear Doctor Desean,
Please review the following and provide your response in the progress notes.
Clinical Indicators:
- 07/20 RN skin assessments indicate Stage 2 sacrum pressure injury, POA
- 07/23 RN skin assessments indicates Stage 3 sacrum pressure injury
Physician documentation of the type and location of wounds is required for compliant documentation. Based on the above clinical findings and your assessment, please provide the following in your progress note:
1. Location of the ulcer/wound, including laterality.
2. Type (etiology) of ulcer/wound:
- Diabetic ulcer
- Arterial (ischemic) ulcer
- Venous stasis ulcer
- Pressure (decubitus) ulcer
- Other
Use of terms such as suspected, likely, concern for, or probable (associated with a specific diagnosis that is being evaluated, monitored, or treated as if it exists) are acceptable and can be coded in the inpatient setting, when documented at the
time of discharge.
Thank you,
Isabella Salazar RN
CDI Specialist
Please use your independent medical judgment in providing your response.
*Source: National Pressure Ulcer Advisory Panel (NPUAP)
--- NOTE | 2024-07-24 11:04 | CM ---
CM reviewed chart and received call from daughter/Ashley
Prior to admission to [facility], pt was residing with dtr who was her primary caregiver
Dtr broke her back and currently in the hospital
Dtr requesting pt return to [facility] on dc
Pt was bed-bound at home, difficulties with transferring into wheelchair
Return SNF referral sent to [facility] via [facility]
Discharge Disposition- return to [facility]
--- NOTE | 2024-07-24 11:18 | W.PN.HOSP.TC ---
Addendum entered and electronically signed by Marla Anton MD 07/24/24 17:32:
Addendum
called daughter Ashley Dan and answered all her questions, she requested regular updates, will update her daily.
End
Original Note:
Today's Communication/Plan
-
.
Assessment / Plan
Assessment / Plan
Physical Exam
General: Appears chronically debilitated, no acute distress
HEENT: Normocephalic, Atraumatic, EOMI, MMM
Respiratory: Clear to Auscultation bilaterally
Cardiac: Normal S1/S2, Regular Rate and Rhythm
GI: Soft, Nontender, Nondistended, Normal Bowel Sounds
Extremities: No Clubbing, Cyanosis, or Edema
Neuro: AAOX3, followed commands
Psych: calm
# Myasthenia gravis flare-up
Patient presented with new onset of weakness. She started to complain of swallowing difficulty overnight. She noted that her swallowing difficulty history is not new and has had it before.
Consulted speech therapist and upon evaluation felt that her symptoms consistent with myasthenia gravis flare with poor pharyngeal clearance and coughing on liquids.
I discussed with neurologist,
Change prednisone to IV Solu-Medrol
Consulted GI and Dobbhoff was replaced.
Continue with pyridostigmine
And CellCept cannot be crushed
Consulted hematology for plasmapheresis. Discussed with IR, will do nontunneled central line
Will follow
Head CT negative, brain MRI neg
#History of myasthenia gravis
Follows with Dr. Hood
Home regimen: Mestinon 150 mg twice a day, prednisone to 35 mg in the morning, CellCept 1000 mg twice a day
#Acute urinary tract infection
Considered complicated due to underlying immunocompromised status, no fever, leukocytosis resolved. No flank pain.
Status post IV Ancef in the ER
Treat with IV Rocephin, urine cultures growing Escherichia coli Klebsiella pneumonia, both susceptible to Rocephin. Continue 10 days of antibiotic therapy
#Depression
Continue Cymbalta
# Hyponatremia, mild.
# History of dysphagia, continue with speech therapy recommendation
#Chronic pain syndrome with opioid dependency
#Recent laminectomy with w/ Rocio at [facility]
Continue gabapentin, opioids
Added laxatives
# Hypothyroidism
Continue levothyroxine, recommend repeating TSH levels in 4-6 weeks
# Hypertension
Continue lisinopril
# Type 2 diabetes
Metformin, sliding scale insulin, carb controlled diet
# GERD
-PPI continued
#hyperlipidemia
-Statin continued
DVT prophylaxis�subcu Lovenox
Full code
Total time spent to see the patient on the floor, examine the patient, review data and lab results, discuss treatment plan with patient, consultants, nursing staff around 55 minutes.
Anticipated Discharge: > 48 hours
Subjective/Interval History
-
Date of Service: July 24, 2024
Events over night noted
Pt complained of swallowing difficulty
Objective Data
-
Vital Signs:
Vital Signs
Temp Pulse Resp BP Pulse Ox
97.6 F 72 16 116/80 98
07/24/24 07:30 07/24/24 07:30 07/24/24 07:30 07/24/24 07:30 07/24/24 07:30
I&O
07/23/24 07/24/24 07/25/24
06:59 06:59 06:59
Intake Total 900 / 900
Balance 900 / 900
[2024-07-24] MEDS: NSS 1000 IV ×2 (11:54→15:23)
[2024-07-24 12:23] LABS: Glucose - Point of Care 97 mg/dl (70-99)
--- NOTE | 2024-07-24 13:07 | CON.ONC ---
Impression
Impression
Myasthenia gravis flare-up
UTI
hyponatremia
Chronic pain syndrome with opioid dependency
Plan
Plan
albumin exchange every other day x 5 doses as recommended by neurology arranged through [facility] [phone]
non-tunnelled catheter needed for albumin exchange
daily cbc, bmp, phos, magnesium, PT/INR, PTT, fibrinogen, LDH
hold ADY/ARB while undergoing pheresis
Patient History
History of Present Illness
74yo F presented with acute weakness from her rehab after laminectomy. She reports chronic RLE for many years. She reports RUE weakness, difficulty swallowing, and LLE weakness. She was evaluated by her OP neurologist who adjusted her Mestinon,
prednisone, and cellcept. She has been started on abx for UTI. Hematology consulted to arrange PLEX for myasthenia gravis flare diagnosed and managed by neurology.
She denied fever, chills, chest pain, sob, palpitations, abdominal pain,n,v,d. She reports dysuria over 1-2 days.
Past-Medical/Surgical History
PMH HTN, Breast cancer, DM, HLD, chronic pain,
PSH Bowel resection, Knee replacement, Thyroidectomy, Tubal ligation, Hip replacement, Left nipple exploration and excision of central duct
Social denies tobacco, ETOH, or recreation drug. Retired
Family unknown
Patient Medication
�Medication �Instructions �Recorded �Confirmed �Last Taken �Type
acetaminophen 325 mg tablet 650 mg PO Q6HPRN PRN mild pain 07/20/24 07/20/24 Unknown History
(Tylenol)
alendronate 70 mg tablet (Fosamax) 70 mg PO WE 07/20/24 07/20/24 Unknown History
ascorbic acid (vitamin C) 1,000 mg 1,000 mg PO DAILY 07/20/24 07/20/24 Unknown History
tablet (Vitamin C)
bisacodyl 10 mg rectal suppository 10 mg GA DAILYPRN PRN if no bm 07/20/24 07/20/24 Unknown History
(Dulcolax (bisacodyl)) aftr mom
calcium carbonate 500 mg PO DAILY 07/20/24 07/20/24 Unknown History
cholecalciferol (vitamin D3) 50 50 mcg PO DAILY 07/20/24 07/20/24 Unknown History
mcg (2,000 unit) capsule (Vitamin
D3)
cyanocobalamin (vitamin B-12) 2,000 mcg PO DAILY 07/20/24 07/20/24 Unknown History
1,000 mcg tablet
docusate sodium 100 mg capsule 100 mg PO BID 07/20/24 07/20/24 Unknown History
(Colace)
duloxetine 30 mg capsule,delayed 30 mg PO BID 07/20/24 07/20/24 Unknown History
release (Cymbalta)
enoxaparin 40 mg/0.4 mL 40 mg SC DAILY 07/20/24 07/20/24 Unknown History
subcutaneous syringe (Lovenox)
gabapentin 400 mg tablet 800 mg PO TID 07/20/24 07/20/24 Unknown History
hydromorphone 2 mg tablet 2 mg PO Q4HPRN PRN severe pain 07/20/24 07/20/24 Unknown History
levothyroxine 50 mcg tablet 50 mcg PO DAILY 07/20/24 07/20/24 Unknown History
(Synthroid)
lisinopril 10 mg tablet 10 mg PO DAILY 07/20/24 07/20/24 Unknown History
magnesium hydroxide 400 mg/5 mL 2,400 mg PO [id number] PRN 07/20/24 07/20/24 Unknown History
oral suspension (Milk of Magnesia) constipation
menthol 0.44 %-zinc oxide 20.6 % 1 applic topical TID 07/20/24 07/20/24 Unknown History
topical ointment (Moisture Barrier
Ointment)
metformin 500 mg tablet 500 mg PO BID 07/20/24 07/20/24 Unknown History
methocarbamol 500 mg tablet 500 mg PO QIDPRN PRN muscle spasms 07/20/24 07/20/24 Unknown History
morphine 15 mg tablet,extended 15 mg PO Q12H 07/20/24 07/20/24 Unknown History
release
mycophenolate mofetil 500 mg tablet 1,000 mg PO BID 07/20/24 07/20/24 Unknown History
ondansetron 4 mg disintegrating 4 mg PO Q6HPRN PRN nausea 07/20/24 07/20/24 Unknown History
tablet
pantoprazole 40 mg tablet,delayed 40 mg PO BID 07/20/24 07/20/24 Unknown History
release (Protonix)
prednisone 10 mg tablet 35 mg PO DAILY 07/20/24 07/20/24 Unknown History
pyridostigmine bromide 60 mg tablet 150 mg PO BID 07/20/24 07/20/24 Unknown History
rosuvastatin 20 mg tablet (Crestor) 20 mg PO DAILY 07/20/24 07/20/24 Unknown History
sennosides 8.6 mg tablet (senna) 17.2 mg PO BIDPRN PRN constipation 07/20/24 07/20/24 Unknown History
sodium phosphates 19 gram-7 118 ml GA DAILYPRN PRN if no bm 07/20/24 07/20/24 Unknown History
gram/118 mL enema (Fleet Enema) aftr dulcalox
zinc oxide 1 ea topical DAILYPRN PRN b/l 07/20/24 07/20/24 Unknown History
buttock
zinc oxide 1 ea topical TID b/l buttock 07/20/24 07/20/24 Unknown History
Active Medications
Generic Name Dose Route Start Last Admin
Trade Name Freq PRN Reason Stop Dose Admin
Acetaminophen 650 mg 07/20/24 13:23
Acetaminophen 650 Mg Rectal Suppository RECTAL 08/17/24 13:22
Q4HPRN PRN
MORRIS, mild pain, or temp >100.4F
Acetaminophen 650 mg 07/24/24 11:31
Acetaminophen 325 Mg Tablet TUBE 08/17/24 13:22
Q4HPRN PRN
MORRIS, mild pain, or temp >100.4F
Ceftriaxone Sodium 1,000 mg 07/21/24 13:00 07/23/24 12:45
Ceftriaxone 1000 Mg / 10 Ml Vial IV 1,000 mg
Q24H JESSIE Administration
Dextrose 12.5 grams 07/20/24 13:23
Dextrose 50% (0.5 Grams/Ml) 50 Ml Syringe IV 08/17/24 13:22
[id number] PRN
hypoglycemia
Protocol
Enoxaparin Sodium 40 mg 07/21/24 08:00 07/24/24 09:29
Enoxaparin Sodium 40 Mg/0.4 Ml Syringe SC 08/18/24 07:59 40 mg
DAILY JESSIE Administration
Glucagon 1 mg 07/20/24 13:23
Glucagon 1 Mg Vial IM 08/17/24 13:22
PRN PRN
hypoglycemia
Protocol
Hydromorphone HCl 0.25 mg 07/24/24 10:20 07/24/24 10:40
Hydromorphone 0.25 Mg/0.5 Ml Syringe IV 08/07/24 10:19 0.25 mg
Q3HPRN PRN Administration
mod to severe pain
Sodium Chloride 1,000 mls @ 125 mls/hr 07/24/24 08:45 07/24/24 11:54
Nss IV 1,000 mls
.Q8H JESSIE Administration
Insulin Aspart 0 units 07/20/24 16:30 07/24/24 13:06
Insulin Aspart Low Resistance 300 Units/3 Ml Pen.Injctr SC 08/17/24 16:29 Not Given
AC JESSIE
Protocol
Lansoprazole 30 mg 07/24/24 20:00
Lansoprazole 30 Mg Solutab TUBE 08/21/24 19:59
BID JESSIE
Levothyroxine Sodium 50 mcg 07/25/24 06:00
Levothyroxine 50 Mcg Tablet TUBE 08/22/24 05:59
DAILY @ 0600 JESSIE
Methylprednisolone Sodium Succinate 40 mg 07/24/24 08:45 07/24/24 09:32
Methylprednisolone Pf 40 Mg/Ml Vial IV 08/21/24 08:44 40 mg
DAILY JESSIE Administration
Mycophenolate Mofetil 1,000 mg 07/20/24 20:00 07/24/24 09:19
Mycophenolate 500 Mg Tablet PO 08/17/24 19:59 Not Given
BID JESSIE
Prednisone 30 mg/ Prednisone 5 35 mg 07/21/24 08:00 07/24/24 09:19
mg PO 08/18/24 07:59 Not Given
DAILY JESSIE
Pyridostigmine [place] 120 mg 07/24/24 11:37
Pyridostigmine 60 Mg Tablet TUBE 08/21/24 11:36
BID JESSIE
Sodium Chloride 0 flush 07/20/24 14:00
Sodium Chloride 0.9% (Flush) Syringe IV 08/17/24 13:59
PER PROTOCOL JESSIE
Sterile Water 10 ml 07/21/24 13:00 07/23/24 12:45
Sterile Water For Injection 10 Ml Vial IV 08/18/24 12:59 10 ml
DAILY@1300 JESSIE Administration
Review of Systems
-
ROS is notable for HPI, otherwise negative
Physical Exam
-
HEENT: Moist Mucous Membranes and Other (dobhoff); Negative Jaundice
Cardiology: Normal Sinus Rhythm
Pulmonary: Clear
GI: Soft
Extremities: Pulses Present; Negative Edema
Neurology: Non Focal
Skin: Warm
Labs
Lab Results
WBC 8.2 10^3/uL (4.8-10.8) 07/23/24 08:05
RBC 3.71 10^6/uL (4.20-5.40) L 07/23/24 08:05
Hgb 10.5 g/dL (12.0-16.0) L 07/23/24 08:05
Hct 34.0 % (37.0-47.0) L 07/23/24 08:05
MCV 91.6 fL (81.0-99.0) 07/23/24 08:05
MCH 28.3 pg (27.0-31.0) 07/23/24 08:05
MCHC 30.9 g/dL (33.0-37.0) L 07/23/24 08:05
RDW 14.2 % (11.5-14.5) 07/23/24 08:05
Plt Count 192 10^3/uL (130-400) D 07/23/24 08:05
MPV 9.3 fL (7.4-10.4) 07/23/24 08:05
Abs Immat Gran (auto) 0.1 10^3/uL (0-0.05) H 07/20/24 10:32
Absolute Neuts (auto) 9.6 10^3/uL (1.4-6.5) H 07/20/24 10:32
Absolute Lymphs (auto) 2.2 10^3/uL (1.2-3.4) 07/20/24 10:32
Absolute Monos (auto) 0.6 10^3/uL (0.1-0.6) 07/20/24 10:32
Absolute Eos (auto) 0.0 10^3/uL (0-0.7) 07/20/24 10:32
Absolute Basos (auto) 0.0 10^3/uL (0-0.2) 07/20/24 10:32
Immature Gran % 0.5 % (0-0.5) 07/20/24 10:32
Neutrophils % 76.9 % (42.2-75.2) H 07/20/24 10:32
Lymphocytes % 17.2 % (20.5-51.1) L 07/20/24 10:32
Monocytes % 4.9 % (1.7-9.3) 07/20/24 10:32
Eosinophils % 0.3 % (0-6) 07/20/24 10:32
Basophils % 0.2 % (0-2) 07/20/24 10:32
Creatinine 1.0 mg/dL (0.6-1.0) 07/23/24 08:05
Vital Signs
Vital Signs
Temp Pulse Resp BP Pulse Ox
97.6 F 72 16 116/80 98
07/24/24 07:30 07/24/24 07:30 07/24/24 07:30 07/24/24 07:30 07/24/24 07:30
[2024-07-24] MEDS: MESTINON TUBE (13:49)
[2024-07-24] MEDS: STERILE WATER FOR INJECTION 10 ML IV (15:23)
[2024-07-24] MEDS: ROCEPHIN 1000 MG IV (15:24)
[2024-07-24] MEDS: HEPARIN 10000 UNITS INTRACATH (17:20)
[2024-07-24] MEDS: CALCIUM GLUCONATE 10% INJECTION 277 MG IV (17:22)
--- NOTE | 2024-07-24 17:53 | PTCARENOTE ---
[facility] nurse here to initiate plasmaphoresis , Requested clarification for admin of solumedrol IV, stated they do not usually give with plasmaphoresis treatment. Pharmacy aware and will reach out to Dr Bustos.
[2024-07-24 17:58] LABS: Glucose - Point of Care 139 mg/dl (70-99)
[2024-07-24 18:23] LABS: INR 1.04; PT 13.9 Sec (11.4-14.6)
[2024-07-24 18:24] LABS: APTT 51.5 Sec (23.4-35.0); Fibrinogen 299 MG/DL (199-459)
[2024-07-24 18:35] LABS: LDH 180 U/L (120-246); Magnesium 1.6 mg/dl (1.6-2.3); Phosphorus 2.7 mg/dl (2.5-4.5)
[2024-07-24 18:49] LABS: Glucose - Point of Care 140 mg/dl (70-99)
--- NOTE | 2024-07-24 19:09 | RR ---
Patient c/o nausea during plasmaphoresis treatment, went unresponsive upon nurse assessment.. Arousable with sternal rub. Nonverbal . A Rapid Response was called on this patient, please see Rapid Response form.
[2024-07-24 19:18] LABS: % Basophils 0.1 % (0-2); % Immature Granulocytes 0.7 % (0-0.5); % Lymphocytes 7.3 % (20.5-51.1); % Monocytes 3.5 % (1.7-9.3); % Neutrophils 88.4 % (42.2-75.2); Absolute Immature Granulocytes 0.1 10^3/uL (0-0.05); Absolute Lymphocytes 1.1 10^3/uL (1.2-3.4); Absolute Monocytes 0.5 10^3/uL (0.1-0.6); Absolute Neutrophils 13.5 10^3/uL (1.4-6.5); Hematocrit 36.4 % (37.0-47.0); Hemoglobin 11.8 g/dL (12.0-16.0); Mean Corp Hgb Conc. 32.4 g/dL (33.0-37.0); Mean Corpuscular Hgb 28.4 pg (27.0-31.0); Mean Corpuscular Volume 87.7 fL (81.0-99.0); Mean Platelet Volume 9.1 fL (7.4-10.4); Nucleated Red Blood Cells % 0 %; Platelet Count 213 10^3/uL (130-400); Red Blood Cell Count 4.15 10^6/uL (4.20-5.40); White Blood Cell Count 15.3 10^3/uL (4.8-10.8)
[2024-07-24 19:28] LABS: INR 2.02
[2024-07-24 19:29] LABS: APTT 57.5 Sec (23.4-35.0)
[2024-07-24 19:32] LABS: Lactic Acid 1.8 mmol/L (0.7-2.0)
[2024-07-24 19:33] LABS: ALT (SGPT) < 10 U/L (0-35); AST (SGOT) 10 U/L (14-36); Albumin 3.9 g/dl (3.5-5.0); Alkaline Phosphatase 37 U/L (38-126); Blood Urea Nitrogen 16 mg/dl (7-17); Calcium 8.7 mg/dl (8.4-10.2); Carbon Dioxide 18 mmol/L (22-30); Chloride 111 mmol/L (98-107); Estimated Creatinine Clearance 59 ml/min; Glucose 147 mg/dl (70-99); Potassium 3.7 mmol/L (3.5-5.1); Sodium 136 mmol/L (135-145); Total Bilirubin 0.3 mg/dl (0.2-1.3); Total Protein 4.8 g/dl (6.3-8.2); eGFR > 60.00
[2024-07-24 19:44] LABS: Troponin I 0.012 ng/ml
[2024-07-24 20:01] LABS: Ionized Calcium 1.09 mMOL/L (1.15-1.33)
[2024-07-24 20:03] LABS: Venous Blood Gas B.E. -4.5 mmol/L (-4 to +4); Venous Blood Gas HCO3 21.1 mmol/L (22-27); Venous Blood Gas O2 Sat % 90.5 %; Venous Blood Gas pCO2 40 mmHg (35-48); Venous Blood Gas pH 7.33 (7.32-7.43); Venous Blood Gas pO2 58 mmHg (30-50)
--- NOTE | 2024-07-24 20:15 | PTCARENOTE ---
Daughter called for an update, INTERACTIVE DESIGNER notified to update daughter. Pt being transferred to IMU. belongings with patient. Report given.
--- NOTE | 2024-07-24 20:33 | PTCARENOTE ---
Rec'd pt as tx from 4W following RR stroke alert. Rec'd pt with stable VS, as documented. Pt nonverbal, presents with blank stare. DHT present in L jacke. R IJ present. This RN was informed pt will be transferred to ICU. ICU gas charger updated.
Awaiting bed assignment to transfer.
--- NOTE | 2024-07-24 20:44 | W.PN.UPDATE ---
Update Note
Progress Note Update
1844 Rapid Response Stroke alert was called, CT scan done, Neurologist aware per RN
1925 RN notified BRACELET MAKER NOVELTY of stroke alert. Patient was seen and evaluated. Patient in bed, awake with a stare, noted blinks at times, not communicating or responding to verbal or sternal rubs. patient unable to participate with NIH. lungs diminished, +
BS, soft, VS 153/94 84 97.7,98% 18, labs , VBG, TF on hold, chest Xray. CT scan ordered and resulted. Addressed case to neurologist. Advised Keppra 2500 mg IV loading dose, Keppra 1000mg BID, MRI, EEG and lumbar puncture, NIH per protocol,
Neurologist recommended transfer patient to ICU. Daughter updated. Addressed code status with daughter and remains Full code. Also addressed patient's refusal of lumbar puncture with daughter Ashley and she wants lumbar puncture to be done. CHRIS Jara on
call made aware, order in.
large loose BM noted ordered Norovirus and C-diff.
ICU [employer]ACELET MAKER [employer]OVEL[employer] made aware, Hospitalist made aware.
[2024-07-24] MEDS: KEPPRA 2000 MG IV (21:03)
--- NOTE | 2024-07-24 21:27 | PTCARENOTE ---
Received patient from IMU, staring straight ahead, unresponsive. Not following commands, unable to properly assess NIH, scored 37, DRAW FRAME RUNNER and neurology aware. PERRLA 2. Heart rate 90s, normal sinus. BP stable, normothermic. Weak palpable pedal pulses
b/l. 98% on room air, lung sounds diminished throughout. Right nare DHT. Abdomen soft, round, hypoactive bowel sounds. PIV patent, WNL. Family at bedside. Hourly rounding and patient safety checks ongoing.
[2024-07-24] MEDS: STERILE WATER FOR INJECTION 20 ML IV (21:50)
[2024-07-24] MEDS: ROCEPHIN 2000 MG IV (21:50)
[2024-07-24] MEDS: PREVACID 30 MG TUBE (21:51)
[2024-07-24] MEDS: MESTINON 120 MG TUBE (21:51)
[2024-07-24] MEDS: KEPPRA 500 MG IV (21:51)
[2024-07-24] MEDS: VANCOCIN 530 MG IV (22:08)
[2024-07-24 22:12] LABS: Glucose - Point of Care 139 mg/dl (70-99)
[2024-07-24] MEDS: COMPOUND MEDICATION 1 UNIT TUBE (23:30)
[2024-07-24] MEDS: AMPICILLIN 108 MG IV (23:41)
[2024-07-25] VITALS (72 sets, daily range): BP systolic 82–151; BP diastolic 71–118; BMI 21.3
[2024-07-25] MEDS: NSS 1000 IV ×2 (00:13→15:44)
[2024-07-25] MEDS: SOLU-MEDROL 258 MG IV ×2 (00:15→21:21)
--- NOTE | 2024-07-25 00:30 | PTCARENOTE ---
Patient occasionally coughing, suctioned for thin white clear secretions. DHT clogged, attempted to push zenpep, still clogged. New PIV inserted. Otherwise patient assessment unchanged from previous.
[2024-07-25] MEDS: NOVOLOG FLEXPEN-LOW RESISTANCE SC ×3 (00:38→23:57)
[2024-07-25 00:49] LABS: Glucose - Point of Care 111 mg/dl (70-99)
[2024-07-25] MEDS: AMPICILLIN 108 MG IV ×2 (00:54→06:16)
[2024-07-25] MEDS: OFIRMEV 100 IV (01:30)
--- NOTE | 2024-07-25 04:32 | DOWNTIME ---
There was a [employer] Downtime on 07/25/2024 from 0100 to 07/26/2023 at 0420 . Downtime documentation of patient's care, including medication administrations, has been reconciled in the electronic record per guidelines. Refer to the
patient's paper chart under the miscellaneous tab to see printed paper medication records and downtime forms.
[2024-07-25] MEDS: DILAUDID 0.25 MG IV ×11 (04:49→22:30)
--- NOTE | 2024-07-25 06:18 | W.PN.HOSP.TC ---
Today's Communication/Plan
-
Follow-up with speech therapy
Intolerance to tube feed, PRN Zofran
Uncontrolled chronic pain with opioid dependency, changed to IV Dilaudid low-dose [id number] and as needed dose, hopefully can resume gabapentin and morphine if passes swallow evaluation
Follow-up with the blood cultures
Assessment / Plan
Assessment / Plan
Physical Exam
General: Appears chronically debilitated, no acute distress
HEENT: Normocephalic, Atraumatic, EOMI, MMM
Respiratory: Clear to Auscultation bilaterally
Cardiac: Normal S1/S2, Regular Rate and Rhythm
GI: Soft, Nontender, Nondistended, Normal Bowel Sounds
Extremities: No Clubbing, Cyanosis, or Edema
Neuro: AAOX3, followed commands
Psych: calm
# Rapid response 07/24 with possibility of vasovagal episode
Patient was feeling nausea before the event. She felt tube feeding was causing nausea
CT head negative for acute findings including stroke or hemorrhage
Patient is AAOX3 this morning, no seizure activity last night
Discussed with neurology, LP to rule out subclinical encephalitis.
No fever or headache reported.
Empiric Abx for now
# Myasthenia gravis flare-up
Patient presented with new onset of weakness. She started to complain of swallowing difficulty 07/24. She noted that her swallowing difficulty history was not new and has had it before.
Consulted speech therapist and upon evaluation felt that her symptoms consistent with pharyngeal dysphagia with poor pharyngeal clearance and coughing on liquids.
I discussed with neurologist, possible MG flare-up
Change prednisone to IV Solu-Medrol
Consulted GI.
Continue with pyridostigmine
And CellCept cannot be crushed
Consulted hematology for plasmapheresis. Discussed with IR, did nontunneled central line
Head CT negative, brain MRI neg
Appreciate hematology and neurology help
#History of myasthenia gravis
Follows with Dr. Hood
Home regimen: Mestinon 150 mg twice a day, prednisone to 35 mg in the morning, CellCept 1000 mg twice a day
#Acute urinary tract infection
Considered complicated due to underlying immunocompromised status, no fever, leukocytosis resolved. No flank pain.
Status post IV Ancef in the ER
Treat with IV Rocephin, urine cultures growing Escherichia coli Klebsiella pneumonia, both susceptible to Rocephin. Continue 10 days of antibiotic therapy
#Depression
Continue Cymbalta
# Hyponatremia, mild.
# History of dysphagia, continue with speech therapy recommendation
#Chronic pain syndrome with opioid dependency
#Recent laminectomy with w/ Rocio at [facility]
She takes gabapentin, opioids at home
For now due to dysphagia, changed to IV Dilaudid low-dose [id number] per patient request, add as needed Dilaudid
Added laxatives
# Hypothyroidism
Continue levothyroxine, recommend repeating TSH levels in 4-6 weeks
# Hypertension
Continue lisinopril
# Type 2 diabetes
Metformin, sliding scale insulin, carb controlled diet
# GERD
-PPI continued
#hyperlipidemia
-Statin continued
DVT prophylaxis�subcu Lovenox
Full code
Total time spent to see the patient on the floor, examine the patient, review data and lab results, discuss treatment plan with patient, consultants, family, nursing staff around 55 minutes.
Anticipated Discharge: > 48 hours
Subjective/Interval History
-
Date of Service: July 25, 2024
Awake
Wants her pain medications due to pain in legs
No chest pain
No sob
Objective Data
-
Labs:
Laboratory Results
07/24/24 07/24/24 07/25/24
17:21 19:05 06:10
WBC 15.3 H Pending
Hgb 11.8 L Pending
Hct 36.4 L Pending
Plt Count 213 Pending
PT 13.9 23.0 H Pending
INR 1.04 2.02 Pending
APTT 51.5 H 57.5 H Pending
Sodium 136 Pending
Potassium 3.7 Pending
Chloride 111 H Pending
Carbon Dioxide 18 L Pending
BUN 16 Pending
Creatinine 0.8 Pending
Glucose 147 H Pending
Calcium 8.7 Pending
Total Bilirubin 0.3 Pending
AST 10 L Pending
ALT < 10 Pending
Alkaline Phosphatase 37 L Pending
Vital Signs:
Vital Signs
Temp Pulse Resp BP Pulse Ox
97.2 F 100 14 139/102 97
07/24/24 21:16 07/25/24 02:15 07/25/24 02:15 07/25/24 02:15 07/25/24 02:15
I&O
07/23/24 07/24/24 07/25/24
06:59 06:59 06:59
Intake Total 900 / 900 2125
Balance 900 / 900 2125
[2024-07-25] MEDS: SYNTHROID TUBE (06:19)
[2024-07-25 06:33] LABS: % Basophils 0.1 % (0-2); % Immature Granulocytes 0.7 % (0-0.5); % Lymphocytes 3.2 % (20.5-51.1); % Monocytes 0.6 % (1.7-9.3); % Neutrophils 95.4 % (42.2-75.2); Absolute Immature Granulocytes 0.1 10^3/uL (0-0.05); Absolute Lymphocytes 0.4 10^3/uL (1.2-3.4); Absolute Monocytes 0.1 10^3/uL (0.1-0.6); Absolute Neutrophils 12.9 10^3/uL (1.4-6.5); Hematocrit 32.6 % (37.0-47.0); Hemoglobin 10.5 g/dL (12.0-16.0); Mean Corp Hgb Conc. 32.2 g/dL (33.0-37.0); Mean Corpuscular Hgb 28.4 pg (27.0-31.0); Mean Corpuscular Volume 88.1 fL (81.0-99.0); Mean Platelet Volume 9.9 fL (7.4-10.4); Nucleated Red Blood Cells % 0 %; Platelet Count 187 10^3/uL (130-400); White Blood Cell Count 13.5 10^3/uL (4.8-10.8)
[2024-07-25 06:36] LABS: INR 1.38; PT 17.2 Sec (11.4-14.6)
[2024-07-25 06:37] LABS: APTT 38.3 Sec (23.4-35.0)
[2024-07-25 06:53] LABS: ALT (SGPT) < 10 U/L (0-35); AST (SGOT) 11 U/L (14-36); Albumin 2.9 g/dl (3.5-5.0); Alkaline Phosphatase 42 U/L (38-126); Blood Urea Nitrogen 14 mg/dl (7-17); Calcium 7.9 mg/dl (8.4-10.2); Carbon Dioxide 17 mmol/L (22-30); Chloride 115 mmol/L (98-107); Estimated Creatinine Clearance 68 ml/min; Glucose 137 mg/dl (70-99); LDH 153 U/L (120-246); Magnesium 1.5 mg/dl (1.6-2.3); Phosphorus 2.9 mg/dl (2.5-4.5); Potassium 3.9 mmol/L (3.5-5.1); Sodium 136 mmol/L (135-145); Total Bilirubin 0.4 mg/dl (0.2-1.3); eGFR > 60.00
[2024-07-25 07:04] LABS: Fibrinogen 133 MG/DL (199-459)
--- NOTE | 2024-07-25 08:19 | PTOTSP ---
RN CASE MGR Note
New RN CASE MGR orders required w/ transfer to ICU. Will f/u as able/appropriate when orders received.
--- NOTE | 2024-07-25 08:23 | CON.INTV ---
Addendum entered and electronically signed by Stacey Brown MD 07/26/24 11:05:
Patient transferred out of ICU
Highway Maintenance Technician service will sign off, please call as needed.
Original Note:
Consultation
Consultation Request
Date/Time Consultation Requested: 12 AM
Date/Time Consultation Performed: 8:30
Medical History
-
Chief Complaint: Rapid response stroke alert
History of Present Illness:
74-year-old female with past medical history of myasthenia gravis, diabetes, hypothyroidism, hypertension, hyperlipidemia, chronic pain syndrome, breast ductal biopsy and recent laminectomy evaluated initially at [facility] for potential
myasthenia gravis flare. She had reported progressive weakness and numbness for 6 weeks. Per neurology, since myasthenia gravis is not associated with sensory deficits, likely not a myasthenia gravis flare. As of yesterday, per hematology
oncology and neurology, she is planned for plasmapheresis X5 treatments, methylprednisolone 1 g daily X5. She is being transferred to the ICU because overnight there was concern for patient having a seizure versus stroke. Code was called and
neurology loaded patient with Keppra and started maintenance dose of Keppra. Additionally, MRI/EEG/LP to potentially be performed today, pending final recommendations from. Although patient had refused LP, daughter, Ashley, would like LP to be
performed today. Patient currently also being evaluated for norovirus and C. difficile.
Vitals in ICU are 118/94, pulse 104, respirations 11, afebrile saturating 98% on oxygen.
Past medical history�myasthenia gravis, diabetes, hypothyroidism, hypertension, hyperlipidemia, chronic pain syndrome
Past surgical history�recent laminectomy, breast ductal biopsy
Social History
Tobacco: Non-smoker
Alcohol: None
Drug: None
Living: Assisted Living
Allergies / Home Medications
Allergies
Allergy/AdvReac Type Severity Reaction Status Date / Time
aspirin Allergy Unknown Verified 07/20/24 10:01
oxycodone Allergy Unknown Verified 07/20/24 10:01
Home Medications
�Medication �Instructions �Recorded �Confirmed �Last Taken �Type
acetaminophen 325 mg tablet 650 mg PO Q6HPRN PRN mild pain 07/20/24 07/20/24 Unknown History
(Tylenol)
alendronate 70 mg tablet (Fosamax) 70 mg PO WE 07/20/24 07/20/24 Unknown History
ascorbic acid (vitamin C) 1,000 mg 1,000 mg PO DAILY 07/20/24 07/20/24 Unknown History
tablet (Vitamin C)
bisacodyl 10 mg rectal suppository 10 mg LA DAILYPRN PRN if no bm 07/20/24 07/20/24 Unknown History
(Dulcolax (bisacodyl)) aftr mom
calcium carbonate 500 mg PO DAILY 07/20/24 07/20/24 Unknown History
cholecalciferol (vitamin D3) 50 50 mcg PO DAILY 07/20/24 07/20/24 Unknown History
mcg (2,000 unit) capsule (Vitamin
D3)
cyanocobalamin (vitamin B-12) 2,000 mcg PO DAILY 07/20/24 07/20/24 Unknown History
1,000 mcg tablet
docusate sodium 100 mg capsule 100 mg PO BID 07/20/24 07/20/24 Unknown History
(Colace)
duloxetine 30 mg capsule,delayed 30 mg PO BID 07/20/24 07/20/24 Unknown History
release (Cymbalta)
enoxaparin 40 mg/0.4 mL 40 mg SC DAILY 07/20/24 07/20/24 Unknown History
subcutaneous syringe (Lovenox)
gabapentin 400 mg tablet 800 mg PO TID 07/20/24 07/20/24 Unknown History
hydromorphone 2 mg tablet 2 mg PO Q4HPRN PRN severe pain 07/20/24 07/20/24 Unknown History
levothyroxine 50 mcg tablet 50 mcg PO DAILY 07/20/24 07/20/24 Unknown History
(Synthroid)
lisinopril 10 mg tablet 10 mg PO DAILY 07/20/24 07/20/24 Unknown History
magnesium hydroxide 400 mg/5 mL 2,400 mg PO [id number] PRN 07/20/24 07/20/24 Unknown History
oral suspension (Milk of Magnesia) constipation
menthol 0.44 %-zinc oxide 20.6 % 1 applic topical TID 07/20/24 07/20/24 Unknown History
topical ointment (Moisture Barrier
Ointment)
metformin 500 mg tablet 500 mg PO BID 07/20/24 07/20/24 Unknown History
methocarbamol 500 mg tablet 500 mg PO QIDPRN PRN muscle spasms 07/20/24 07/20/24 Unknown History
morphine 15 mg tablet,extended 15 mg PO Q12H 07/20/24 07/20/24 Unknown History
release
mycophenolate mofetil 500 mg tablet 1,000 mg PO BID 07/20/24 07/20/24 Unknown History
ondansetron 4 mg disintegrating 4 mg PO Q6HPRN PRN nausea 07/20/24 07/20/24 Unknown History
tablet
pantoprazole 40 mg tablet,delayed 40 mg PO BID 07/20/24 07/20/24 Unknown History
release (Protonix)
prednisone 10 mg tablet 35 mg PO DAILY 07/20/24 07/20/24 Unknown History
pyridostigmine bromide 60 mg tablet 150 mg PO BID 07/20/24 07/20/24 Unknown History
rosuvastatin 20 mg tablet (Crestor) 20 mg PO DAILY 07/20/24 07/20/24 Unknown History
sennosides 8.6 mg tablet (senna) 17.2 mg PO BIDPRN PRN constipation 07/20/24 07/20/24 Unknown History
sodium phosphates 19 gram-7 118 ml LA DAILYPRN PRN if no bm 07/20/24 07/20/24 Unknown History
gram/118 mL enema (Fleet Enema) aftr dulcalox
zinc oxide 1 ea topical DAILYPRN PRN b/l 07/20/24 07/20/24 Unknown History
buttock
zinc oxide 1 ea topical TID b/l buttock 07/20/24 07/20/24 Unknown History
Review of Systems
-
History Source: Patient
All other systems: Negative unless noted
Constitutional: Fatigue
Musculoskeletal: Other (Back pain)
Neuro: Weakness
Vitals / Labs / Diagnostic Testing
Vital Signs
Temp Pulse Resp BP Pulse Ox
98.6 F 104 11 118/94 98
07/25/24 07:53 07/25/24 06:15 07/25/24 06:15 07/25/24 06:15 07/25/24 06:15
Lab Data
07/25/24 06:10
07/25/24 06:10
Laboratory Results
07/24/24 07/24/24 07/25/24
17:21 19:05 06:10
PT 13.9 23.0 H 17.2 H
INR 1.04 2.02 1.38
APTT 51.5 H 57.5 H 38.3 H
Microbiology
07/20/24 11:03 Urine Urine Culture - Final
Escherichia coli
Klebsiella pneumoniae
07/20/24 22:05 Nose MRSA Screen - Final
No Methicillin Resistant Staphylococcus aureus isolated.
Diagnostic Testing:
Physical Exam
-
HEENT: Normocephalic and Anicteric
Cardiovascular: S1/S2 and Regular Rhythm
Respiratory: Clear
GI: Soft and Non Distended
Neurology: AO x 3
Skin: Warm and Dry
Assessment
-
74-year-old female with past medical history of myasthenia gravis, diabetes, hypothyroidism, hypertension, hyperlipidemia, chronic pain syndrome, breast ductal biopsy and recent laminectomy being managed in ICU for seizure overnight.
Last 24 hours�
� Mid to ICU, currently stable
� EEG/MRI/LP to be performed. EEG completed this morning, LP pending for later today.
-WBC 13.5, RBC 3.7, hemoglobin 10.5, electrolytes within normal limits, BUN 14, creatinine 0.7
� Albumin 2.9�pending plasmapheresis
� Glucose 111, fluid balance positive 2158
#Upper and lower extremity weakness, new as of [address] and brain MRI negative
Suspected GBS per neurology
No IVIG�patient has declined blood products
Lumbar puncture potentially today
Pending final recommendations from neurology regarding EEG results and whether or not to proceed with MRI/LP
#History of myasthenia gravis
Follows with
Continue Mestinon, prednisone and CellCept
#Suspicion of meningitis
Physical exam not consistent with meningitis
Antibiotics discontinued per recommendations of infectious disease
Proceed with lumbar puncture for more information regarding generalized weakness
#Depression
Continue Cymbalta
#Hyponatremia
Continue to monitor
#History of dysphagia
Speech therapy on board, appreciate inputs
Cleared for soft/bite-size diet
#Chronic pain
Status post recent laminectomy
Pending neurology and hospitalist recommendations for pain management regimen
#Hypothyroidism
Continue levothyroxine
#Hypertension
Continue lisinopril
#Type 2 diabetes
Continue metformin and sliding scale insulin
Carb controlled diet
#GERD
Continue PPI
#Hyperlipidemia
Continue statin
Full code
--- NOTE | 2024-07-25 08:30 | PTCARENOTE ---
Received pt awake and alert.Speech is appropriate.+3/5 bl upper extremities.0-1/5 bl lower extremities.Sensation intact throughout.Pt c/o intermittent severe bl lower extremity pain.Medicated with Dilaudid as ordered.Pt had 1 episode of spontaneous
unresponsiveness x 1-2 minutes.Pt awakened to persistent verbal and tactile stimulation.Pt was aphasic for 1-2 minutes with perseveration that spontaneously resolved.EEG was in progress at this time.Dr Bustos was immediately notified and was at
bedside during this episode.SR-ST noted.IVF infusing as ordered.POX 98% on RA.Decreased breath sounds throughout.Occasional non productive cough.NPO.Dobbhoff intact.Flushes without difficulty.Pt c/o nausea with dry heaving but no emesis.Dr Gutiérrez
made aware.Pt refusing tube feeding.No BM.Voiding yellow urine via PureWick.Skin integrity as documented.Pt's daughter Emil at bedside.Plan of care discussed with pt and her daughters.
[2024-07-25] MEDS: CELLCEPT 1000 MG PO (08:47)
[2024-07-25] MEDS: SYNTHROID 50 MCG TUBE (08:48)
[2024-07-25] MEDS: PREVACID 30 MG TUBE ×2 (08:48→20:17)
[2024-07-25] MEDS: KEPPRA 1000 MG IV ×2 (08:49→20:17)
[2024-07-25] MEDS: MESTINON 120 MG TUBE ×2 (08:49→20:17)
[2024-07-25] MEDS: LOVENOX 40 MG SC (08:50)
--- NOTE | 2024-07-25 08:54 | W.PN.ONC2 ---
Today's Communication / Plan
-
Cont PLEX #2 on 07/26.
Mild post flex hypo-fibrinogenemia. Monitor. Should increase by tomorrow. Add FFP if remains < 100.
Impression
Impression
Myasthenia gravis flare-up
UTI
hyponatremia
Chronic pain syndrome with opioid dependency
Plan
Plan
albumin exchange every other day x 5 doses as recommended by neurology arranged through [facility] [phone]
1st PLEX 07/24
Has non-tunnelled catheter for albumin exchange
daily cbc, bmp, phos, magnesium, PT/INR, PTT, fibrinogen, LDH
hold ADY/ARB while undergoing pheresis
Subjective/Objective
Chief Complaint
ACS Heme Onc
Subjective
Feels nausea. About to start her EEG procedure.
Vital Signs:
Vital Signs
Temp Pulse Resp BP Pulse Ox
98.6 F 104 11 118/94 98
07/25/24 07:53 07/25/24 06:15 07/25/24 06:15 07/25/24 06:15 07/25/24 06:15
Lab Results:
Laboratory Data
WBC 13.5 10^3/uL (4.8-10.8) H 07/25/24 06:10
Hgb 10.5 g/dL (12.0-16.0) L 07/25/24 06:10
Plt Count 187 10^3/uL (130-400) 07/25/24 06:10
PT 17.2 Sec (11.4-14.6) H 07/25/24 06:10
INR 1.38 07/25/24 06:10
APTT 38.3 Sec (23.4-35.0) H 07/25/24 06:10
eGFR > 60.00 07/25/24 06:10
Laboratory Tests
07/25/24
06:10
Fibrinogen 133 L
Physical Exam
Cardiology: S1 and S2
--- NOTE | 2024-07-25 09:44 | W.PN.NEURO.1 ---
Today's Communication / Plan
-
Appreciate hematology assistance with Plasmapheresis, now needed due to dysphagia
Goal for plasmapheresis is a total of 5 treatments representing approximately 5 exchanges
Check lumbar puncture due to the possibility although now appearing to be more remote, of underlying infectious etiology for the patient's symptomatology leading to probable vasovagal event on 07/24/2024
Continue vitamin B12 replacement
Advanced steroids from prednisone 35 mg daily to methylprednisolone 1 g daily x 5, first day of advancement was 07/24/2024
Neuro Assessment/Plan
Assessment
Patient with previous diagnosis of myasthenia gravis presenting to this hospital with gradually progressive weakness in bilateral lower extremities also involving bilateral upper extremities distally greater than proximally.
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 Repeated EMG study performed during this hospitalization confirms that diagnosis and suggests significant worsening.
The patient initially was declining receipt of blood based products.
Developed dysphagia noted 07/24/2024, most likely secondary to worsening of myasthenia gravis
07/24/2024, patient developed acute onset of change in mental status leading to transfer to the intensive care unit. Events seem to a followed plasma exchange however were at the same time patient was retching, suggesting a possible vasovagal event
Plan
Appreciate hematology assistance with Plasmapheresis, now needed due to dysphagia
Goal for plasmapheresis is a total of 5 treatments representing approximately 5 exchanges
Check lumbar puncture due to the possibility although now appearing to be more remote, of underlying infectious etiology for the patient's symptomatology leading to probable vasovagal event on 07/24/2024
Consider initiation of outpatient Rozanolixizumab-ken
Rehabilitation evaluations and treatment
Check blood work for potential metabolic abnormalities in addition to diabetes
Continue vitamin B12 replacement
Advanced steroids from prednisone 35 mg daily to methylprednisolone 1 g daily x 5, first day of advancement was 07/24/2024
May continue pyridostigmine 150 mg twice daily
May continue mycophenolate
Provide thiamine
Will follow
Subjective/Objective
Subjective Data
Date of Service: July 25, 2024
Patient experiencing severe pain. No known modifying factors. Pain is in the back radiating into legs
Objective Data
Vital Signs
Temp Pulse Resp BP Pulse Ox
37.0 C 104 11 118/94 98
07/25/24 07:53 07/25/24 06:15 07/25/24 06:15 07/25/24 06:15 07/25/24 06:15
Lab Results
07/25/24 06:10
07/25/24 06:10
PT 17.2 Sec (11.4-14.6) H 07/25/24 06:10
INR 1.38 07/25/24 06:10
APTT 38.3 Sec (23.4-35.0) H 07/25/24 06:10
Sodium 136 mmol/L (135-145) 07/25/24 06:10
Potassium 3.9 mmol/L (3.5-5.1) 07/25/24 06:10
BUN 14 mg/dl (7-17) 07/25/24 06:10
Glucose 137 mg/dl (70-99) H 07/25/24 06:10
Calcium 7.9 mg/dl (8.4-10.2) L 07/25/24 06:10
Phosphorus 2.9 mg/dl (2.5-4.5) 07/25/24 06:10
LDL Cholesterol, Calc 17 mg/dl 07/21/24 05:38
Patient Allergies
aspirin Allergy (Verified 07/20/24 10:01)
Unknown
oxycodone Allergy (Verified 07/20/24 10:01)
Unknown
Review of Systems
-
History Source: Patient
All other systems: Reviewed and negative
Musculoskeletal: Back Pain
Neuro: Negative Dizzy or Headache
Physical Exam
-
General: No Apparent Distress and Appears Stated Age
Eyes: Round OU, [place] Conjunctivae and No Ptosis
HEENT: Anicteric and Moist Mucous Membranes
Neck: Full Range of Motion
Respiratory: No Dyspnea
Cardiac: No JVD
Skin: Unremarkable
Extremities: No Clubbing, No Cyanosis and No Edema
Psych: Negative Intact Judgement/Insight
Extended Neurological Exam
Mood & Affect: Anxious
Attention Span & Concentration: Awake, Interactive and No Difficulty with 2 Step Request; Negative Alert
Memory: Unremarkable
Tremor: Hand Tremor Absent and Head Tremor Absent
Speech: Quality Unremarkable and Quantity Unremarkable
Cranial Nerve II: Left Eye: Pupillary Size Unremarkable and Visual Schaeffer Grossly Intact
Cranial Nerve II: Right Eye: Pupillary Size Unremarkable and Visual Schaeffer Grossly Intact
Cranial Nerves III, IV, : Extraocular Movement: Grossly Intact
Cranial Nerve VII: Facial Symmetry: Normal Facial Symmetry
Cranial Nerve VIII: Hearing: Unremarkable Hearing to Normal Conversational Volume
Cranial Nerves IX, X: Palate Movement: Palate Elevation Symmetric
Muscle Strength, Overall: Spontaneously Moves and Other (Minimal movement bilateral upper extremities, no movement bilateral lower extremities)
Muscle Bulk & Tone: Bulk Unremarkable and Increased Tone
Touch Sensation: Unremarkable
Gait & Station: Unable to Assess
Data Reviewed
-
Labs: Report Reviewed
Reviewed with: Physician, Nurse Practioner, Patient and Family
Old Records: Summarized
Past History
Past History
ED Past Medical History: Cancer (Breast hyperplasia), HTN, Hypercholesterolemia, NIDDM, Hypothyroidism and Other (Myasthenia gravis)
ED Past Surgical History: Bowel resection, Gynecological (Tubal ligation), Orthopedic (Knee replacement, hip replacement) and Other (Lumbar laminectomy, left breast nipple exploration and excision of central duct)
Family History
Family History: Other (reviewed and non-contributory)
Medications
-
Medications:
Generic Name Dose Route Start Last Admin
Trade Name Freq PRN Reason Stop Dose Admin
Acetaminophen 650 mg 07/20/24 13:23
Acetaminophen 650 Mg Rectal Suppository RECTAL 08/17/24 13:22
Q4HPRN PRN
MORRIS, mild pain, or temp >100.4F
Acetaminophen 650 mg 07/24/24 11:31
Acetaminophen 325 Mg Tablet TUBE 08/17/24 13:22
Q4HPRN PRN
MORRIS, mild pain, or temp >100.4F
Ceftriaxone Sodium 2,000 mg 07/24/24 22:00 07/24/24 21:50
Ceftriaxone 1000 Mg / 10 Ml Vial IV 2,000 mg
Q12H JESSIE Administration
Dextrose 12.5 grams 07/20/24 13:23
Dextrose 50% (0.5 Grams/Ml) 50 Ml Syringe IV 08/17/24 13:22
[id number] PRN
hypoglycemia
Protocol
Enoxaparin Sodium 40 mg 07/21/24 08:00 07/25/24 08:50
Enoxaparin Sodium 40 Mg/0.4 Ml Syringe SC 08/18/24 07:59 40 mg
DAILY JESSIE Administration
Glucagon 1 mg 07/20/24 13:23
Glucagon 1 Mg Vial IM 08/17/24 13:22
PRN PRN
hypoglycemia
Protocol
Heparin Sodium 0 units 07/26/24 08:00
Heparin (1000 Units/Ml) 10,000 Units/10 Ml Vial INTRACATH 08/01/24 08:01
Q48H JESSIE
Hydromorphone HCl 0.25 mg 07/25/24 10:00 07/25/24 09:09
Hydromorphone 0.25 Mg/0.5 Ml Syringe IV 08/08/24 09:59 0.25 mg
Q3HPRN PRN Administration
breakthrough pain
Hydromorphone HCl 0.25 mg 07/25/24 07:00 07/25/24 08:14
Hydromorphone 0.25 Mg/0.5 Ml Syringe IV 08/08/24 06:59 0.25 mg
Q3H JESSIE Administration
Sodium Chloride 1,000 mls @ 75 mls/hr 07/24/24 08:45 07/25/24 00:13
Nss IV 1,000 mls
.[id number] JESSIE Administration
Methylprednisolone Sodium 258 mls @ 258 mls/hr 07/24/24 22:00 07/25/24 00:15
Succinate 1,000 mg/ Sodium IV 07/28/24 22:59 258 mls
Chloride Q24H JESSIE Administration
Albumin Human 12.5 grams in 250 mls @ 1,375 mls/hr 07/26/24 08:00
Albumin 5% INTRACATH 07/26/24 10:00
.Q11M JESSIE
Albumin Human 12.5 grams in 250 mls @ 1,375 mls/hr 07/28/24 08:00
Albumin 5% INTRACATH 07/28/24 10:00
.Q11M JESSIE
Albumin Human 12.5 grams in 250 mls @ 1,375 mls/hr 07/30/24 08:00
Albumin 5% INTRACATH 07/30/24 10:00
.Q11M JESSIE
Albumin Human 12.5 grams in 250 mls @ 1,375 mls/hr 08/01/24 08:00
Albumin 5% INTRACATH 08/01/24 10:00
.Q11M JESSIE
Calcium Gluconate 2,700 mg/ 277 mls @ 0 mls/hr 07/26/24 08:00
Sodium Chloride IV 07/26/24 08:01
ONCE ONE
As Directed
Calcium Gluconate 2,700 mg/ 277 mls @ 0 mls/hr 07/28/24 08:00
Sodium Chloride IV 07/28/24 08:01
ONCE ONE
As Directed
Calcium Gluconate 2,700 mg/ 277 mls @ 0 mls/hr 07/30/24 08:00
Sodium Chloride IV 07/30/24 08:01
ONCE ONE
As Directed
Calcium Gluconate 2,700 mg/ 277 mls @ 0 mls/hr 08/01/24 08:00
Sodium Chloride IV 08/01/24 08:01
ONCE ONE
As Directed
Vancomycin HCl 1 each/ Device 0 mls @ 0 mls/hr 07/24/24 21:25
IV
PER PROTOCOL JESSIE
As Directed
Ampicillin Sodium 2,000 mg/ 108 mls @ 108 mls/hr 07/24/24 22:00 07/25/24 06:16
Sodium Chloride IV 108 mls
Q4H JESSIE Administration
Insulin Aspart 0 units 07/24/24 18:00 07/25/24 06:56
Insulin Aspart Low Resistance 300 Units/3 Ml Pen.Injctr SC 08/21/24 17:59 Not Given
Q6 JESSIE
Protocol
Lansoprazole 30 mg 07/24/24 20:00 07/25/24 08:48
Lansoprazole 30 Mg Solutab TUBE 08/21/24 19:59 30 mg
BID JESSIE Administration
Levetiracetam 1,000 mg 07/25/24 08:00 07/25/24 08:49
Levetiracetam (100 Mg/Ml) 500 Mg/5 Ml Vial IV 08/22/24 07:59 1,000 mg
Q12 JESSIE Administration
Levothyroxine Sodium 50 mcg 07/25/24 06:00 07/25/24 08:48
Levothyroxine 50 Mcg Tablet TUBE 08/22/24 05:59 50 mcg
DAILY @ 0600 JESSIE Administration
Mycophenolate Mofetil 1,000 mg 07/20/24 20:00 07/25/24 08:47
Mycophenolate 500 Mg Tablet PO 08/17/24 19:59 1,000 mg
BID JESSIE Administration
Ondansetron HCl 4 mg 07/25/24 09:29
Ondansetron 4 Mg/2 Ml Vial IV 08/22/24 09:28
Q6HPRN PRN
NAUSEA/VOMITING
Prednisone 30 mg/ Prednisone 5 35 mg 07/21/24 08:00 07/24/24 09:19
mg PO 08/18/24 07:59 Not Given
DAILY JESSIE
Pregabalin 50 mg 07/25/24 16:00
Pregabalin 50 Mg Capsule PO 08/22/24 15:59
TID JESSIE
Pyridostigmine [place] 120 mg 07/24/24 11:37 07/25/24 08:49
Pyridostigmine 60 Mg Tablet TUBE 08/21/24 11:36 120 mg
BID JESSIE Administration
Sodium Chloride 0 flush 07/20/24 14:00
Sodium Chloride 0.9% (Flush) Syringe IV 08/17/24 13:59
PER PROTOCOL JESSIE
Sodium Chloride 0 flush 07/24/24 13:00 07/24/24 16:54
0.9% Nacl Flush If Calcium Ivf Ordered IV 08/21/24 12:59 Not Given
BID@1300,1305 JESSIE
Sterile Water 10 ml 07/21/24 13:00 07/24/24 15:23
Sterile Water For Injection 10 Ml Vial IV 08/18/24 12:59 10 ml
DAILY@1300 JESSIE Administration
Sterile Water 20 ml 07/24/24 22:00 07/24/24 21:50
Sterile Water For Injection 20 Ml Vial IV 08/21/24 21:59 20 ml
Q12H JESSIE Administration
--- NOTE | 2024-07-25 10:44 | EEG.RPT ---
Electroencephalogram Report
Recording
Date of EE07/25/24
Type of EEG: Routine
Length of EEG recordin minutes
Done with Video Recording: Yes
Patient Status: Inpatient
Recording Conditions: Awake, Drowsy and Asleep
Hyperventilation Performed: No
Photic Stimulation Performed: Yes
Report
LESS THAN 1 HOUR EEG REPORT
LESS THAN 1 HOUR EEG INTERPRETATION:
Mildly-moderately abnormal EEG for age due to diffuse bihemispheric slowing
CLINICAL CORRELATION:
This study was suggestive of diffuse cortical dysfunction without focal abnormality. No seizures were recorded.
Clinical correlation is advised.
METHODS:
A 21 channel digitized electroencephalogram (EEG) was performed at the bedside in the ICU. The 10/20 international system of electrode placement was used with ECG and lateral/vertical eye movements recorded. Persyst QEEG monitoring was performed.
QUALITY OF STUDY:
Fair
ELECTROENCEPHALOGRAPHER IMPRESSION(S):
Background
There was a low amplitude moderately unorganized anterior-posterior voltage gradient of delta frequency
There were no significant asymmetries of background activity noted.
Sleep
Drowsiness present
Stage 2 sleep suggested
Photic Stimulation
Failed to activate the record.
ECG
Normal sinus rhythm
--- NOTE | 2024-07-25 11:08 | WOUNDNOTE ---
LEFT AND MIDDLE SACRUM
--- NOTE | 2024-07-25 11:08 | CON.ID ---
Consultation
-
Date/Time Consultation Requested: 07/24/20245
Date/Time Consultation Performed: 07/25/2024 1041
Requesting Provider: KEIRA Hogue
Performing Provider: Dr. Holloway
Reason for Consultation: 'Rule out meningitis'
Chief Complaint / Past History
History of Present Illness
Dante Mayfield is a 74-year-old female being evaluated at the request of Darion Salinas regarding possible meningitis. History is obtained from chart review, along with patient interview.
The patient initially presented to [facility] on 07/20 secondary to weakness. She reportedly developed right lower extremity weakness years ago, and underwent L4-5 laminectomy in mid April. More recently, she reports 6 weeks of
progressive weakness starting in her left leg and progressing proximally. She is also admitted to some right arm weakness, along with dysphagia and reported choking. She has been maintained on CellCept for her underlying myasthenia gravis. She
has been evaluated by neurology during her hospital stay, and has been started on plasmapheresis for possible GBS.
Last evening, a [employer] was called secondary to the patient becoming unresponsive with a blank stare. Patient was started on Keppra load, and transferred to the ICU. Reported concern for meningitis, and patient was started on ampicillin, ceftriaxone
and vancomycin. Infectious Diseases is asked to comment on further antimicrobial therapy.
At the present time, the patient is awake and answering questions, although is on pain medicine. She notes low back pain, with pain tracking down her bilateral legs. She denies significant neck pain.
Past History
Additional Past Medical History:
Myasthenia gravis
DM
Hypothyroidism
HTN
Dyslipidemia
Hx breast CA
Additional Past Surgical History:
L4-5 laminectomy
Bowel resection
Knee replacement
Thyroidectomy
Tubal ligation
Hip replacement
Left breast surgery
Allergy History:
aspirin Allergy (Verified 07/20/24 10:01)
Unknown
oxycodone Allergy (Verified 07/20/24 10:01)
Unknown
Medications Reviewed: Yes
Current Antibiotics:
Ampicillin 2 g IV every 4 hours
Ceftriaxone 2 g IV every 12 hours
Vancomycin (pharmacy to dose)
Social History
Tobacco: Non-Smoker
Alcohol: None
Drug: None
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
Family History
Family History: Not Pertinent
Review of Systems
Vital Signs
Temp Pulse Resp BP Pulse Ox
98.6 F 104 11 118/94 98
07/25/24 07:53 07/25/24 06:15 07/25/24 06:15 07/25/24 06:15 07/25/24 06:15
Physical Exam
Physical Exam
Constitutional: Comfortable, Acutely Ill and Non-toxic
Head: Normocephalic
Eyes: Pupils Equal, Pupils Round, No Conjunctival Hemorrhage and Sclera Anicteric
Oral: No Thrush and No Ulcers
Cardiovascular: Regular Rate and S1/S2; Negative S3/S4
Pulmonary: Clear; Negative Wheezes, Rales or Rhonchi
Gastrointestinal: Soft, Non Tender, Non Distended and Normal Bowel Sounds
Extremities: Edema (1+ B/L LE); Negative Cyanosis, Erythema or Venous Insufficiency
Musculoskeletal: Negative Joint Swelling
Skin: Warm and Dry; Negative Rash or Jaundice
Neurological: Awake, Alert and Oriented; Negative Meningeal Signs (No nuchal rigidity. Full cervical range of motion.)
Psychological: Calm
Lab / Diagnostic Study Results
07/25/24 06:10
07/25/24 06:10
Abs Immat Gran (auto) 0.1 10^3/uL (0-0.05) H 07/25/24 06:10
Absolute Neuts (auto) 12.9 10^3/uL (1.4-6.5) H 07/25/24 06:10
Absolute Lymphs (auto) 0.4 10^3/uL (1.2-3.4) L 07/25/24 06:10
Absolute Monos (auto) 0.1 10^3/uL (0.1-0.6) 07/25/24 06:10
Absolute Basos (auto) 0.0 10^3/uL (0-0.2) 07/25/24 06:10
Immature Gran % 0.7 % (0-0.5) H 07/25/24 06:10
Neutrophils % 95.4 % (42.2-75.2) H 07/25/24 06:10
Lymphocytes % 3.2 % (20.5-51.1) L 07/25/24 06:10
Monocytes % 0.6 % (1.7-9.3) L 07/25/24 06:10
Eosinophils % 0.0 % (0-6) 07/25/24 06:10
Basophils % 0.1 % (0-2) 07/25/24 06:10
PT 17.2 Sec (11.4-14.6) H 07/25/24 06:10
INR 1.38 07/25/24 06:10
Lactic Acid 1.8 mmol/L (0.7-2.0) 07/24/24 19:05
Ur Squamous Epith Cells 21-25 /LPF (Few) 07/20/24 11:03
Microbiology Results
Micro:
07/25/24 01:27 C. difficile GDH Antigen & Toxins - Final
Feces/Stool Negative for toxigenic C.difficile
- Final
Negative for Norovirus GI and GII.
07/25/24 01:27 Salmonella/Shigella Culture - Pending
Feces/Stool Campylobacter Culture - Pending
Shiga Toxin Test - Pending
07/20/24 11:03 Urine Culture - Final
Urine Escherichia coli
Klebsiella pneumoniae
07/20/24 22:05 MRSA Screen - Final
Nose No Methicillin Resistant Staphylococcus aureus isolated.
Imaging:
07/24/2024 CXR (portable): Dobbhoff tube is present. Lungs are slightly hypoinflated but clear of consolidation. Please see full dictation for additional detail. Film personally viewed.
07/24/2024 CT head: No evidence of acute intracranial abnormality.
Assessment / Plan
Reported neurological event (?Absence seizure ?med effect)
-No evidence of clinical meningitis at present.
Progressive ascending weakness
- Concern for GBS
- Pt now receiving plasmapheresis
Hx myasthenia gravis
Leukocytosis; suspect steroid related
Bacteriuria
Hypothyroidism
HTN
Dyslipidemia
Hx breast CA
Recommendations:
Current clinical presentation not consistent with meningitis.
Discontinue further ampicillin, ceftriaxone and vancomycin.
Prior urine cultures noted, although patient without symptomatology. Patient has been on 5 days of appropriate therapy. No need for further antibiotics.
Agree with LP, which may provide more definitive diagnosis of generalized weakness.
Will continue to follow along with you.
Care Review
Plan reviewed with: Physician (Critical Care)
.

Total time spent today was 76 minutes, which includes preparation for the visit, including review of pre-visit forms and results, patient interview and examination, reviewing pertinent studies, including laboratory results, microbiology results,
radiology studies, hospital records, specialist consultation, along with patient/caregiver counseling, documentation of clinical information and coordination of care with other healthcare professionals.
--- NOTE | 2024-07-25 11:08 | WOUNDNOTE ---
LEFT AND MIDDLE SACRUM
--- NOTE | 2024-07-25 11:09 | WOUNDNOTE ---
LEFT AND MIDDLE SACRUM
--- NOTE | 2024-07-25 11:10 | WOUNDNOTE ---
JAZMIN RN note: Patient admitted with weakness and acute UTI.
See H&P for complete history. From [facility].
PMH: Myesthenia Gravis, neuropathy, numbness of arm and legs, chronic back pain, lumbar compression fractures- L4-L5 fusion, HTN, DM and stage 3 sacral pressure injuries.
Wound Location and type/assessment: Patient admitted with: L and mid sacrum with stage 3 PI, base pink mixed with yellow slough. L ischium with darker patch of skin, non blanchable, suspected stage 1 PI. Patient reports she was sitting allot at
rehab, does not recall using offloading cushion. Patient attempts to turn self, needs assist. Heels are both intact, pillows under calves in use. R dorsal great toe and medial foot with darker skin compared to rest of foot and some mild edema.
Patient with pain in R leg when lifting, not new states patient. Daughters at bedside.
Appetite: NPO
Pressure redistribution devices in place: On air mattress, pillows under calves. Air cushion when sitting. Turning schedule in use, Repositioned patient to R semi side lying position.
Plan: Adaptic and sacral silicone foam applied to sacrum and buttocks. Called SPD for honey gel to start tomorrow for sacral wounds. Foams applied to heels to protect and offloaded. Will confirm orders with hospitalist and update nurse.
Updated care plan and will follow as needed.
Note to case management of equipment requested for discharge: Air mattress
Recommend follow up at wound care center upon discharge.
[2024-07-25] MEDS: STERILE WATER FOR INJECTION IV ×2 (11:19→13:46)
[2024-07-25] MEDS: AMPICILLIN IV (11:20)
[2024-07-25] MEDS: ROCEPHIN IV (11:22)
[2024-07-25 11:47] LABS: Glucose - Point of Care 196 mg/dl (70-99)
--- NOTE | 2024-07-25 12:00 | PTCARENOTE ---
Pt assessed.No change in assessment noted.Pt had 1-2 minute episode of aphasia while being assessed by Speech therapist.This episode reolved spontaneously.Pt c/o bl low ext pain.Medicated with Dilaudid as ordered.
[2024-07-25] MEDS: ZENPEP DELAYED RELEASE CAPSULE 1 PO (12:37)
[2024-07-25] MEDS: LYRICA TUBE (13:19)
[2024-07-25] MEDS: NOVOLOG FLEXPEN-LOW RESISTANCE 1 UNITS SC ×2 (13:45→18:15)
--- NOTE | 2024-07-25 14:00 | PTCARENOTE ---
Pt transported to IR via bed for Lumbar Puncture.
--- NOTE | 2024-07-25 14:24 | CM ---
CM following re: discharge planning.
Discussed in Rounds, reviewed pt's chart, met with pt.
Pt is admitted from [facility] where she was for a short term rehab.
CM spoke to [facility] director transportation Marisela [phone] and she confirmed that pt is not on bed hold, cannot accept the pt with NGT. Per director transportation pt will be accepted back for admission to [facility] when medically
stable.
[facility] nursing report: [phone]
Discharge instructions fax:[phone].
D/C plan: return back to [facility] to continue on skilled services.
CM will follow with discharge plan updates as hospitalization progresses
[2024-07-25] MEDS: ZOFRAN 4 MG IV (15:18)
--- NOTE | 2024-07-25 15:40 | PTCARENOTE ---
Pt returned from IR via bed.Pt assessed.No change in assessment noted.LP dressing intact without drainage.
[2024-07-25] MEDS: LYRICA 50 MG TUBE ×2 (15:45→21:21)
--- NOTE | 2024-07-25 16:00 | PTCARENOTE ---
Pt assessed.No change in assessment noted.
[2024-07-25 16:27] LABS: Spinal Fluid Glucose 106 mg/dl (40-70); Spinal Fluid Protein 159 mg/dl (12-60)
[2024-07-25 16:44] LABS: CSF Tube # 4
[2024-07-25 16:45] LABS: CSF Color Colorless; CSF Tube # Clarity Clear; Red Cell Count/CSF 2 mm^3; White Blood Cell Count/CSF 1 mm^3 (0-5)
[2024-07-25 16:54] LABS: CSF Clarity Clear; CSF Color Colorless; CSF Tube # 1; Red Cell Count/CSF 24 mm^3; White Cell Count/CSF 0 mm^3 (0-5)
[2024-07-25 18:11] LABS: Glucose - Point of Care 161 mg/dl (70-99)
--- NOTE | 2024-07-25 20:00 | PTCARENOTE ---
Received patient AAOx3, resting comfortably, family at bedside updated and questions answered. NIH 10. Normal sinus 60s-70s, BP stable, normothermic. +1 generalized anasarca, weak pedal pulses b/l. Weakness in b/l legs, 1/5, arms 3/5 strength, 95%
on room air, lung sounds diminished. Abdomen soft, round, hypoactive bowel sounds, incontinent of diarrhea. Purewick in place draining yellow urine. Pressure ulcer on sacrum dressing CDI. PIVs patent, WNL. NSS gtt ongoing. Call phillips within reach.
[2024-07-25] MEDS: CELLCEPT PO (21:08)
[2024-07-25] MEDS: CELLCEPT 1000 MG TUBE (21:22)
--- NOTE | 2024-07-25 23:51 | PTCARENOTE ---
Patient had a bowel movement, diarrhea, cleaned up. Otherwise patient assessment unchanged from previous. Call phillips within reach.
[2024-07-26] VITALS (56 sets, daily range): BP systolic 94–156; BP diastolic 46–136; BMI 21.7
[2024-07-26 00:07] LABS: Glucose - Point of Care 107 mg/dl (70-99)
[2024-07-26] MEDS: DILAUDID 0.25 MG IV ×8 (01:18→19:46)
[2024-07-26] MEDS: NSS 1000 IV (03:12)
[2024-07-26 03:37] LABS: % Basophils 0.1 % (0-2); % Immature Granulocytes 0.7 % (0-0.5); % Lymphocytes 5.6 % (20.5-51.1); % Monocytes 1.6 % (1.7-9.3); Absolute Immature Granulocytes 0.1 10^3/uL (0-0.05); Absolute Lymphocytes 0.6 10^3/uL (1.2-3.4); Absolute Monocytes 0.2 10^3/uL (0.1-0.6); Hemoglobin 10.1 g/dL (12.0-16.0); Mean Corp Hgb Conc. 33.7 g/dL (33.0-37.0); Mean Corpuscular Hgb 29.2 pg (27.0-31.0); Mean Corpuscular Volume 86.7 fL (81.0-99.0); Mean Platelet Volume 9.8 fL (7.4-10.4); Nucleated Red Blood Cells % 0 %; Platelet Count 189 10^3/uL (130-400); Red Blood Cell Count 3.46 10^6/uL (4.20-5.40); Red Cell Dist. Width 14.1 % (11.5-14.5); White Blood Cell Count 10.8 10^3/uL (4.8-10.8)
[2024-07-26 03:54] LABS: INR 1.24; PT 16.2 Sec (11.4-14.6)
[2024-07-26 03:55] LABS: APTT 32.9 Sec (23.4-35.0)
[2024-07-26 04:00] LABS: Fibrinogen 145 MG/DL (199-459)
[2024-07-26 04:01] LABS: Blood Urea Nitrogen 14 mg/dl (7-17); Carbon Dioxide 15 mmol/L (22-30); Chloride 118 mmol/L (98-107); Estimated Creatinine Clearance 59 ml/min; Glucose 154 mg/dl (70-99); LDH 265 U/L (120-246); Magnesium 1.5 mg/dl (1.6-2.3); Potassium 3.9 mmol/L (3.5-5.1); Sodium 137 mmol/L (135-145); eGFR > 60.00
[2024-07-26] MEDS: SYNTHROID 50 MCG TUBE (05:10)
--- NOTE | 2024-07-26 05:23 | PTCARENOTE ---
CHG bath done, labs sent, repositioned. Call phillips within reach.
[2024-07-26] MEDS: NOVOLOG FLEXPEN-LOW RESISTANCE SC (06:13)
[2024-07-26 06:17] LABS: Glucose - Point of Care 135 mg/dl (70-99)
--- NOTE | 2024-07-26 06:18 | W.PN.HOSP.TC ---
Today's Communication/Plan
-
transfer to IMU
to d/w ID & neurology for further TX
Increase Dilaudid dose for now
PT/OT/Speech
Fibrinogen around 145
Assessment / Plan
Assessment / Plan
Physical Exam
General: Appears chronically, not in distress, expressed pain in both legs.
HEENT: Normocephalic, Atraumatic, EOMI, MMM
Respiratory: Clear to Auscultation bilaterally
Cardiac: Normal S1/S2, Regular Rate and Rhythm
GI: Soft, Nontender, Nondistended, Normal Bowel Sounds
Extremities: No Clubbing, Cyanosis, or Edema
Neuro: AAOX3, followed commands
Psych: calm
#Acute on Chronic pain syndrome with opioid dependency
#Recent laminectomy with w/ Rocio at [facility]
She takes gabapentin, opioids at home. d/w neurology , trial of high dose Lyrica.
changed to IV Dilaudid, change to high dose q 4 hours,with as needed Dilaudid
Added laxatives
# Rapid response 07/24 with possibility of vasovagal episode
Patient was feeling nausea before the event. She felt tube feeding was causing nausea
CT head negative for acute findings including stroke or hemorrhage
Patient is AAOX3 since then, no seizure activity last night
Discussed with neurology, LP no c/w infection.
No fever or headache reported.
EEG not diagnostic for epilepsy
# Myasthenia gravis flare-up
Patient presented with new onset of weakness. She started to complain of swallowing difficulty 07/24. She noted that her swallowing difficulty history was not new and has had it before.
Consulted speech therapist and upon evaluation felt that her symptoms consistent with pharyngeal dysphagia with poor pharyngeal clearance and coughing on liquids.
I discussed with neurologist, possible MG flare-up
Changed prednisone to IV Solu-Medrol
Continue with pyridostigmine & CellCept
Consulted hematology for plasmapheresis. Discussed with IR, did nontunneled central line
Head CT negative, brain MRI neg done twice.
Appreciate hematology and neurology help
#History of myasthenia gravis
Follows with Dr. Hood
Home regimen: Mestinon 150 mg twice a day, prednisone to 35 mg in the morning, CellCept 1000 mg twice a day
#Acute urinary tract infection
Considered complicated due to underlying immunocompromised status, no fever, leukocytosis resolved. No flank pain.
Status post IV Ancef in the ER
s/p IV Rocephin, urine cultures growing Escherichia coli Klebsiella pneumonia, both susceptible to Rocephin. She received total of 5 days, will d/w ID.
#Depression
Continue Cymbalta
# Hyponatremia, mild.
# History of dysphagia, continue with speech therapy recommendation
# Hypothyroidism
Continue levothyroxine, recommend repeating TSH levels in 4-6 weeks
#Essential Hypertension
Uncontrolled.
hold ADY/ARB while undergoing pheresis, will add amlodipine.
# Type 2 diabetes
Holding Metformin
c/w sliding scale insulin, carb controlled diet
# GERD
-PPI continued
#hyperlipidemia
-Statin continued
DVT prophylaxis�subcu Lovenox
Full code
Total time spent to see the patient on the floor, examine the patient, review data and lab results, discuss treatment plan with patient, consultants, nursing staff around 55 minutes.
Anticipated Discharge: > 48 hours
Subjective/Interval History
-
Date of Service: July 26, 2024
No chest pain
No sob
No fevers
Objective Data
-
Labs:
Laboratory Results
07/26/24
03:23
WBC 10.8
Hgb 10.1 L
Hct 30.0 L
Plt Count 189
PT 16.2 H
INR 1.24
APTT 32.9
Sodium 137
Potassium 3.9
Chloride 118 H
Carbon Dioxide 15 L
BUN 14
Creatinine 0.8
Glucose 154 H
Calcium 8.0 L
Vital Signs:
Vital Signs
Temp Pulse Resp BP Pulse Ox
97.9 F 86 19 133/115 98
07/26/24 03:30 07/26/24 06:00 07/26/24 06:00 07/26/24 05:00 07/26/24 02:00
I&O
07/24/24 07/25/24 07/26/24
06:59 06:59 06:59
Intake Total 2309 / 2384 2057
Output Total 150 / 150 350 / 350
Balance 2159 / 2234 1707
--- NOTE | 2024-07-26 07:28 | W.PN.NEURO.1 ---
Today's Communication / Plan
-
Goal for plasmapheresis for dysphagia is a total of 5 treatments representing approximately 5 exchanges started 07/24/2024
Rehabilitation evaluations and treatment
Continue vitamin B12 replacement
Advanced steroids from prednisone 35 mg daily to methylprednisolone 1 g daily x 5, first day of advancement was 07/24/2024
Continue pyridostigmine 150 mg twice daily
Replace gabapentin with pregabalin 200 mg 3 times a day for improved absorption and potentially better pain control
Neuro Assessment/Plan
Assessment
Patient with previous diagnosis of myasthenia gravis presenting to this hospital with gradually progressive weakness in bilateral lower extremities also involving bilateral upper extremities distally greater than proximally.
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 Repeated EMG study performed during this hospitalization confirms that diagnosis and suggests significant worsening.
The patient initially was declining receipt of blood based products.
Developed dysphagia noted 07/24/2024, most likely secondary to worsening of myasthenia gravis
07/24/2024, patient developed acute onset of change in mental status leading to transfer to the intensive care unit. Events seem to a followed plasma exchange however were at the same time patient was retching, suggesting a possible vasovagal event
Lumbar puncture due to the possibility of underlying infectious etiology for the patient's symptomatology 07/26/2024 was unrevealing
Plan
Goal for plasmapheresis for dysphagia is a total of 5 treatments representing approximately 5 exchanges started 07/24/2024
Rehabilitation evaluations and treatment
Continue vitamin B12 replacement
Advanced steroids from prednisone 35 mg daily to methylprednisolone 1 g daily x 5, first day of advancement was 07/24/2024
Continue pyridostigmine 150 mg twice daily
Replace gabapentin with pregabalin 200 mg 3 times a day for improved absorption and potentially better pain control
Continue mycophenolate
Provide thiamine
Consider initiation of outpatient Rozanolixizumab-ken
Will follow
Subjective/Objective
Subjective Data
Date of Service: July 26, 2024
Patient having extreme pain in back leading into legs
Objective Data
Vital Signs
Temp Pulse Resp BP Pulse Ox
36.6 C 86 19 133/115 98
07/26/24 03:30 07/26/24 06:00 07/26/24 06:00 07/26/24 05:00 07/26/24 02:00
Lab Results
07/26/24 03:23
07/26/24 03:23
PT 16.2 Sec (11.4-14.6) H 07/26/24 03:23
INR 1.24 07/26/24 03:23
APTT 32.9 Sec (23.4-35.0) 07/26/24 03:23
Sodium 137 mmol/L (135-145) 07/26/24 03:23
Potassium 3.9 mmol/L (3.5-5.1) 07/26/24 03:23
BUN 14 mg/dl (7-17) 07/26/24 03:23
Glucose 154 mg/dl (70-99) H 07/26/24 03:23
Calcium 8.0 mg/dl (8.4-10.2) L 07/26/24 03:23
Phosphorus 3.0 mg/dl (2.5-4.5) 07/26/24 03:23
LDL Cholesterol, Calc 17 mg/dl 07/21/24 05:38
Patient Allergies
aspirin Allergy (Verified 07/20/24 10:01)
Unknown
oxycodone Allergy (Verified 07/20/24 10:01)
Unknown
Review of Systems
-
History Source: Patient
All other systems: Reviewed and negative
Physical Exam
-
General: No Apparent Distress and Appears Stated Age
Eyes: Round OU, [place] Conjunctivae and No Ptosis
HEENT: Anicteric and Moist Mucous Membranes
Neck: Full Range of Motion
Respiratory: No Dyspnea
Cardiac: No JVD
Skin: Unremarkable
Extremities: No Clubbing, No Cyanosis and No Edema
Psych: Intact Judgement/Insight
Extended Neurological Exam
Mood & Affect: Anxious
Attention Span & Concentration: Awake, Alert, Interactive and No Difficulty with 2 Step Request
Memory: Unremarkable
Tremor: Hand Tremor Absent and Head Tremor Absent
Speech: Quality Unremarkable and Quantity Unremarkable
Cranial Nerve II: Left Eye: Pupillary Size Unremarkable and Visual Schaeffer Grossly Intact
Cranial Nerve II: Right Eye: Pupillary Size Unremarkable and Visual Schaeffer Grossly Intact
Cranial Nerves III, IV, : Extraocular Movement: Grossly Intact
Cranial Nerve VII: Facial Symmetry: Normal Facial Symmetry
Cranial Nerve VIII: Hearing: Unremarkable Hearing to Normal Conversational Volume
Muscle Strength, Overall: Spontaneously Moves and Other (Minimal movement bilateral upper extremities, no movement bilateral lower extremities)
Muscle Bulk & Tone: Bulk Unremarkable and Increased Tone
Touch Sensation: Unremarkable
Gait & Station: Unable to Assess
Data Reviewed
-
Labs: Report Reviewed
Reviewed with: Physician and Patient
Old Records: Summarized
Past History
Past History
ED Past Medical History: Cancer (Breast hyperplasia), HTN, Hypercholesterolemia, NIDDM, Hypothyroidism and Other (Myasthenia gravis)
ED Past Surgical History: Bowel resection, Gynecological (Tubal ligation), Orthopedic (Knee replacement, hip replacement) and Other (Lumbar laminectomy, left breast nipple exploration and excision of central duct)
Family History
Family History: Other (reviewed and non-contributory)
Medications
-
Medications:
Generic Name Dose Route Start Last Admin
Trade Name Freq PRN Reason Stop Dose Admin
Acetaminophen 650 mg 07/20/24 13:23
Acetaminophen 650 Mg Rectal Suppository RECTAL 08/17/24 13:22
Q4HPRN PRN
MORRIS, mild pain, or temp >100.4F
Acetaminophen 650 mg 07/24/24 11:31
Acetaminophen 325 Mg Tablet TUBE 08/17/24 13:22
Q4HPRN PRN
MORRIS, mild pain, or temp >100.4F
Dextrose 12.5 grams 07/20/24 13:23
Dextrose 50% (0.5 Grams/Ml) 50 Ml Syringe IV 08/17/24 13:22
[id number] PRN
hypoglycemia
Protocol
Enoxaparin Sodium 40 mg 07/21/24 08:00 07/25/24 08:50
Enoxaparin Sodium 40 Mg/0.4 Ml Syringe SC 08/18/24 07:59 40 mg
DAILY JESSIE Administration
Gabapentin 800 mg 07/26/24 08:00
Gabapentin Solution 600 Mg/12 Ml Cup TUBE 08/23/24 07:59
TID JESSIE
Glucagon 1 mg 07/20/24 13:23
Glucagon 1 Mg Vial IM 08/17/24 13:22
PRN PRN
hypoglycemia
Protocol
Heparin Sodium 0 units 07/26/24 08:00
Heparin (1000 Units/Ml) 10,000 Units/10 Ml Vial INTRACATH 08/01/24 08:01
Q48H JESSIE
Hydromorphone HCl 0.25 mg 07/25/24 10:00 07/26/24 05:14
Hydromorphone 0.25 Mg/0.5 Ml Syringe IV 08/08/24 09:59 0.25 mg
Q3HPRN PRN Administration
breakthrough pain
Hydromorphone HCl 0.5 mg 07/26/24 10:00
Hydromorphone 0.5 Mg/0.5 Ml Syringe IV 08/09/24 09:59
Q4H JESSIE
Sodium Chloride 1,000 mls @ 75 mls/hr 07/24/24 08:45 07/26/24 03:12
Nss IV 1,000 mls
.[id number] JESISE Administration
Methylprednisolone Sodium 258 mls @ 258 mls/hr 07/24/24 22:00 07/25/24 21:21
Succinate 1,000 mg/ Sodium IV 07/28/24 22:59 258 mls
Chloride Q24H JESSIE Administration
Albumin Human 12.5 grams in 250 mls @ 1,375 mls/hr 07/26/24 08:00
Albumin 5% INTRACATH 07/26/24 10:00
.Q11M JESSIE
Albumin Human 12.5 grams in 250 mls @ 1,375 mls/hr 07/28/24 08:00
Albumin 5% INTRACATH 07/28/24 10:00
.Q11M JESSIE
Albumin Human 12.5 grams in 250 mls @ 1,375 mls/hr 07/30/24 08:00
Albumin 5% INTRACATH 07/30/24 10:00
.Q11M JESSIE
Albumin Human 12.5 grams in 250 mls @ 1,375 mls/hr 08/01/24 08:00
Albumin 5% INTRACATH 08/01/24 10:00
.Q11M JESSIE
Calcium Gluconate 2,700 mg/ 277 mls @ 0 mls/hr 07/26/24 08:00
Sodium Chloride IV 07/26/24 08:01
ONCE ONE
As Directed
Calcium Gluconate 2,700 mg/ 277 mls @ 0 mls/hr 07/28/24 08:00
Sodium Chloride IV 07/28/24 08:01
ONCE ONE
As Directed
Calcium Gluconate 2,700 mg/ 277 mls @ 0 mls/hr 07/30/24 08:00
Sodium Chloride IV 07/30/24 08:01
ONCE ONE
As Directed
Calcium Gluconate 2,700 mg/ 277 mls @ 0 mls/hr 08/01/24 08:00
Sodium Chloride IV 08/01/24 08:01
ONCE ONE
As Directed
Insulin Aspart 0 units 07/24/24 18:00 07/26/24 06:13
Insulin Aspart Low Resistance 300 Units/3 Ml Pen.Injctr SC 08/21/24 17:59 Not Given
Q6 JESSIE
Protocol
Lansoprazole 30 mg 07/24/24 20:00 07/25/24 20:17
Lansoprazole 30 Mg Solutab TUBE 08/21/24 19:59 30 mg
BID JESSIE Administration
Levetiracetam 1,000 mg 07/25/24 08:00 07/25/24 20:17
Levetiracetam (100 Mg/Ml) 500 Mg/5 Ml Vial IV 08/22/24 07:59 1,000 mg
Q12 JESSIE Administration
Levothyroxine Sodium 50 mcg 07/25/24 06:00 07/26/24 05:10
Levothyroxine 50 Mcg Tablet TUBE 08/22/24 05:59 50 mcg
DAILY @ 0600 JESSIE Administration
Mycophenolate Mofetil 1,000 mg 07/25/24 20:00 07/25/24 21:22
Mycophenolate Susp 200 Mg/Ml In Oral Syringe TUBE 08/22/24 19:59 1,000 mg
BID JESSIE Administration
Ondansetron HCl 4 mg 07/25/24 09:29 07/25/24 15:18
Ondansetron 4 Mg/2 Ml Vial IV 08/22/24 09:28 4 mg
Q6HPRN PRN Administration
NAUSEA/VOMITING
Prednisone 30 mg/ Prednisone 5 35 mg 07/21/24 08:00 07/24/24 09:19
mg PO 08/18/24 07:59 Not Given
DAILY JESSIE
Pyridostigmine [place] 120 mg 07/24/24 11:37 07/25/24 20:17
Pyridostigmine 60 Mg Tablet TUBE 08/21/24 11:36 120 mg
BID JESSIE Administration
Sodium Chloride 0 flush 07/20/24 14:00
Sodium Chloride 0.9% (Flush) Syringe IV 08/17/24 13:59
PER PROTOCOL JESSIE
Sodium Chloride 0 flush 07/24/24 13:00 07/25/24 13:46
0.9% Nacl Flush If Calcium Ivf Ordered IV 04/15/25 12:59 Not Given
BID@[phone] [facility]
--- NOTE | 2024-07-26 08:16 | W.PN.ONC2 ---
Today's Communication / Plan
-
discussed case with [facility] director Dr. Jesus. I will order 2L albumin exchange and approximately 650ml FFP (approximately 3 units) due to hypofibrinogenemia.
Impression
Impression
Myasthenia gravis flare-up
UTI
hyponatremia
Chronic pain syndrome with opioid dependency
hypofibrinogenemia
Plan
Plan
albumin exchange every other day x 5 doses as recommended by neurology arranged through [facility] [id number]
1st PLEX 07/24
Has non-tunnelled catheter for albumin exchange
daily cbc, bmp, phos, magnesium, PT/INR, PTT, fibrinogen, LDH
hold ADY/ARB while undergoing pheresis
With fibrinogen <150, recommend FFP today. I reviewed risk/benefit with patient. She understands that FFP is a blood product and would like to receive to reduce risk of bleeding with low fibrinogen. Consent placed on chart. She tells me that she is
not willing to accept PRBC. I called pt daughters, Kristen and Ashley, per pt request. I provided updates and answered questions.
25min
Subjective/Objective
Subjective
no new complaints
Vital Signs:
Vital Signs
Temp Pulse Resp BP Pulse Ox
97.9 F 86 19 133/115 98
07/26/24 03:30 07/26/24 06:00 07/26/24 06:00 07/26/24 05:00 07/26/24 02:00
Lab Results:
Laboratory Data
WBC 10.8 10^3/uL (4.8-10.8) 07/26/24 03:23
Hgb 10.1 g/dL (12.0-16.0) L 07/26/24 03:23
Plt Count 189 10^3/uL (130-400) 07/26/24 03:23
PT 16.2 Sec (11.4-14.6) H 07/26/24 03:23
INR 1.24 07/26/24 03:23
APTT 32.9 Sec (23.4-35.0) 07/26/24 03:23
eGFR > 60.00 07/26/24 03:23
Orders
Orders
Orders From Last 24 Hours
07/26/24 03:23
BMP [Basic Metabolic Panel] IN AM
CBC/With Diff [Complete Blood Count/With Diff] IN AM
Fibrinogen IN AM
LDH IN AM
Magnesium IN AM
PT/INR [Prothrombin Time] IN AM
PTT IN AM
Phosphorus IN AM
07/26/24 08:00
Albumin Human 5% 250 ml [Albumin 5%] 12.5 grams in 250 ml INTRACATH 1,375 mls/hr
Calcium Gluconate [Calcium Gluconate 10% Injection] 2,700 mg 0.9% Sodium Chloride 250 ml [Nss] 250 ml IV ONCE
Calcium Gluconate [Calcium Gluconate 10% Injection] 2,700 mg 0.9% Sodium Chloride 250 ml [Nss] 250 ml IV Q48H
Heparin See Dose Instructions INTRACATH Q48H
07/27/24 06:00
BMP [Basic Metabolic Panel] IN AM
CBC/With Diff [Complete Blood Count/With Diff] IN AM
Fibrinogen IN AM
LDH IN AM
Magnesium IN AM
PT/INR [Prothrombin Time] IN AM
PTT IN AM
Phosphorus IN AM
07/28/24 06:00
BMP [Basic Metabolic Panel] IN AM
CBC/With Diff [Complete Blood Count/With Diff] IN AM
Fibrinogen IN AM
LDH IN AM
Magnesium IN AM
PT/INR [Prothrombin Time] IN AM
PTT IN AM
Phosphorus IN AM
07/28/24 08:00
Albumin Human 5% 250 ml [Albumin 5%] 12.5 grams in 250 ml INTRACATH 1,375 mls/hr
Calcium Gluconate [Calcium Gluconate 10% Injection] 2,700 mg 0.9% Sodium Chloride 250 ml [Nss] 250 ml IV ONCE
07/29/24 06:00
BMP [Basic Metabolic Panel] IN AM
CBC/With Diff [Complete Blood Count/With Diff] IN AM
Fibrinogen IN AM
LDH IN AM
Magnesium IN AM
PT/INR [Prothrombin Time] IN AM
PTT IN AM
Phosphorus IN AM
07/30/24 06:00
BMP [Basic Metabolic Panel] IN AM
CBC/With Diff [Complete Blood Count/With Diff] IN AM
Fibrinogen IN AM
LDH IN AM
Magnesium IN AM
PT/INR [Prothrombin Time] IN AM
PTT IN AM
Phosphorus IN AM
07/30/24 08:00
Albumin Human 5% 250 ml [Albumin 5%] 12.5 grams in 250 ml INTRACATH 1,375 mls/hr
Calcium Gluconate [Calcium Gluconate 10% Injection] 2,700 mg 0.9% Sodium Chloride 250 ml [Nss] 250 ml IV ONCE
07/31/24 06:00
BMP [Basic Metabolic Panel] IN AM
CBC/With Diff [Complete Blood Count/With Diff] IN AM
Fibrinogen IN AM
LDH IN AM
Magnesium IN AM
PT/INR [Prothrombin Time] IN AM
PTT IN AM
Phosphorus IN AM
08/01/24 06:00
BMP [Basic Metabolic Panel] IN AM
CBC/With Diff [Complete Blood Count/With Diff] IN AM
Fibrinogen IN AM
LDH IN AM
Magnesium IN AM
PT/INR [Prothrombin Time] IN AM
PTT IN AM
Phosphorus IN AM
08/01/24 08:00
Albumin Human 5% 250 ml [Albumin 5%] 12.5 grams in 250 ml INTRACATH 1,375 mls/hr
Calcium Gluconate [Calcium Gluconate 10% Injection] 2,700 mg 0.9% Sodium Chloride 250 ml [Nss] 250 ml IV ONCE
08/02/24 06:00
BMP [Basic Metabolic Panel] IN AM
CBC/With Diff [Complete Blood Count/With Diff] IN AM
Fibrinogen IN AM
LDH IN AM
Magnesium IN AM
PT/INR [Prothrombin Time] IN AM
PTT IN AM
Phosphorus IN AM
08/03/24 06:00
BMP [Basic Metabolic Panel] IN AM
CBC/With Diff [Complete Blood Count/With Diff] IN AM
Fibrinogen IN AM
LDH IN AM
Magnesium IN AM
PT/INR [Prothrombin Time] IN AM
PTT IN AM
Phosphorus IN AM
--- NOTE | 2024-07-26 09:19 | PTCARENOTE ---
Received patient from night RN beto and conversant with RN, c/o pain in bilat LEs which she describes as burning pain 'way above 10/10' medicated with PRN Dilaudid per orders, orders rec'd to adjust standing dose of pain medication from
[place]. Plan discussed at bedside with attending, storage management consultant, and neurologist. HR and BP stable, normothermic. +1 generalized anasarca, weak pedal pulses b/l. Weakness in b/l legs noted, 94% on room air, lung sounds diminished. Abdomen soft, round,
hypoactive bowel sounds, brief CDI. Purewick in place draining yellow urine. Pt declines to be turned at this time, education provided re: risk of worsening pressure injusry. PIVs patent, WNL. NSS gtt ongoing. Speech therapist in room to assess.
PT/OT also on schedule to work with pt today. Downgraded to IMU by attending. Call phillips within reach.
[2024-07-26] MEDS: DILAUDID 0.5 MG IV ×4 (09:56→22:17)
[2024-07-26] MEDS: LOVENOX 40 MG SC (09:56)
--- NOTE | 2024-07-26 09:57 | PTOTSP ---
Dysphagia Therapy
Impression: Dysphagia symptoms improving w/ only WFL-mild oral stage signs at this time, no reports of pharyngeal dysphagia symptoms, and no s/s of aspiration. Initiate diet below.
Recommend:
1. IDDSI Level 6 Soft and Bite Sized, Thin Liquids
2. Medications: as best tolerated (crush and mix in puree as needed/medically appropriate)
3. Full supervision and assistance
4. Strategies: upright as close to 90 degrees as tolerated, small single sips/bites, slow rate, alternate sips/bites, remain upright for at least 30 min. s/p PO
5. Dysphagia tx at the acute care level for education, advanced solid trials, and to determine if/when instrumental swallow study warranted
[2024-07-26] MEDS: MESTINON 120 MG TUBE ×2 (10:55→20:13)
[2024-07-26] MEDS: PREVACID 30 MG TUBE ×2 (10:56→20:13)
[2024-07-26] MEDS: CELLCEPT 1000 MG TUBE (11:02)
[2024-07-26 12:18] LABS: Glucose - Point of Care 182 mg/dl (70-99)
--- NOTE | 2024-07-26 12:38 | PTCARENOTE ---
Saji Faust RN in room to initiate plasmapheresis; all FFP obtained and double checked by this RN and monorail charger operator, administered by [place] RN -held on ice in cooler prior to administration per [place] protocol. 2 daughters (Ashley and Kristen)
updated by phone multiple times by Violet Worley, and Dr. Bustos) and this RN. Pt requesting Dilaudid frequently for burning pain in legs 02/15, administered per orders-see JUL.
[2024-07-26] MEDS: NOVOLOG FLEXPEN-LOW RESISTANCE 1 UNITS SC (12:44)
--- NOTE | 2024-07-26 14:50 | PTCARENOTE ---
Pt tolerated plasmapheresis well, diet now ordered, DHT removed, NIHSS dc'd per Neurology, standard precautions confirmed by DEVORA Armendariz. Safe environment maintained.
--- NOTE | 2024-07-26 15:12 | CM ---
CM following re: discharge planning.
Reviewed pt's chart,met with pt and spoke to pt's daughter Ashley over the phone to update on discharge plan progress.
Pt's daughter has been notified that [facility] will accept her mother back when she is medically stable and pt's daughter expressed her great satisfaction. Pt's daughter stated she is not paying for bed hold and she was not sure whether or
not [facility] will accept her mother back.
[facility] nursing report: [phone]
Discharge instructions fax:[phone]
D/C plan: Return back to [facility] to continue on skilled services and a possibly transition to a fdc care.
CM will follow to assist pt with discharge back to [facility].
--- NOTE | 2024-07-26 15:29 | VATNOTE ---
attempted to change right HD plasmapheresis catheter; however had [employer] to assess as well. Active bleeding from 'track' ;; not sutures. Called IR for a stitch; IR RN spoke with and will pass onto Folded sterile gauze and saline bag
applied for pressure.
--- NOTE | 2024-07-26 15:48 | W.PN.ID1 ---
Date of Service
Date of Service: July 26, 2024
Today's Communication
Observe off antibiotics.
Assessment / Plan
Reported neurological event (?Absence seizure ?med effect)
-No evidence of clinical meningitis at present.
Progressive ascending weakness
- Concern for GBS
- Pt now receiving plasmapheresis
Hx myasthenia gravis
Leukocytosis; suspect steroid related
Bacteriuria
Hypothyroidism
HTN
Dyslipidemia
Hx breast CA
Recommendations:
Current clinical presentation not consistent with meningitis.
CSF fluid without pleocytosis.
Prior urine cultures noted, although patient without symptomatology. Patient has been on 5 days of appropriate therapy. No need for further antibiotics.
Continue to observe off antibiotics.
����������������������������������������������������������
Chief Complaint
-: Other (Meningitis)
Subjective / Review of Systems
Review of Systems: No Fever and No Chills
Vital Signs / Physical Exam
Vital Signs
Vital Signs
Temp Pulse Resp BP Pulse Ox
98.3 F 86 14 104/89 97
07/26/24 15:08 07/26/24 15:08 07/26/24 15:08 07/26/24 15:08 07/26/24 14:50
Physical Exam
Constitutional: Comfortable, Acutely Ill and Non-toxic
Head: Normocephalic
Cardiovascular: S1/S2; Negative S3/S4
Pulmonary: Non Labored
Gastrointestinal: Soft, Non Tender, Non Distended and Normal Bowel Sounds
Extremities: Edema (1+ B/L LE)
Skin: Warm and Dry; Negative Rash or Jaundice
Neurological: Awake, Alert and Oriented; Negative Meningeal Signs (No nuchal rigidity. Full cervical range of motion.)
Psychological: Calm
Objective Data
Lab Data
Lab Results
07/26/24 03:23
07/26/24 03:23
PT 16.2 Sec (11.4-14.6) H 07/26/24 03:23
INR 1.24 07/26/24 03:23
APTT 32.9 Sec (23.4-35.0) 07/26/24 03:23
Estimated Creat Clear 59 ml/min 07/26/24 03:23
Lactic Acid 1.8 mmol/L (0.7-2.0) 07/24/24 19:05
Total Bilirubin 0.4 mg/dl (0.2-1.3) 07/25/24 06:10
AST 11 U/L (14-36) L 07/25/24 06:10
ALT < 10 U/L (0-35) 07/25/24 06:10
Alkaline Phosphatase 42 U/L (38-126) 07/25/24 06:10
Most recent labs reviewed.
Micro Results:
07/25/24 14:55 CSF Culture - Preliminary
Csf No Growth After 18-24 Hours
Gram Stain - Preliminary
07/25/24 01:27 Salmonella/Shigella Culture - Preliminary
Feces/Stool Culture in Progress
Campylobacter Culture - Preliminary
Culture in Progress
Shiga Toxin Test - Final
No E. coli Shiga Toxin 1 or 2 detected.
07/25/24 14:55 Meningitis/Encephalitis Panel (PCR) - Final
Csf
07/25/24 14:55 Fungal Culture - Preliminary
Csf Culture in progress.
Positive cultures are reported as soon as detected.
Final report to follow in four to five weeks.
07/25/24 14:55 Acid Fast Bacilli Smear - Pending
Csf Acid Fast Bacilli Culture - Pending
07/25/24 01:27 C. difficile GDH Antigen & Toxins - Final
Feces/Stool Negative for toxigenic C.difficile
- Final
Negative for Norovirus GI and GII.
07/20/24 11:03 Urine Culture - Final
Urine Escherichia coli
Klebsiella pneumoniae
07/20/24 22:05 MRSA Screen - Final
Nose No Methicillin Resistant Staphylococcus aureus isolated.
Imaging:
07/24/2024 CXR (portable): Dobbhoff tube is present. Lungs are slightly hypoinflated but clear of consolidation. Please see full dictation for additional detail. Film personally viewed.
07/24/2024 CT head: No evidence of acute intracranial abnormality.
--- NOTE | 2024-07-26 16:25 | PTCARENOTE ---
IR at bedside to assist VAT RN to redress right IJ plasmapheresis cath, per her instructions, pt sitting more upright, medicated for discomfort to keep bp WNL, will reinforce dressing PRN -bottom layer not to be removed. former KAYLEY Peterson at
bedside , continues coming out to desk, instructed to utilize call phillips to contact nursing, stated 'we gotta make sure she's not bleeding to first.' Safe environment maintained, emotional support provided to patient ongoing.
[2024-07-26] MEDS: LYRICA 200 MG TUBE ×2 (16:33→20:30)
--- NOTE | 2024-07-26 16:49 | VATNOTE ---
spoke with IR RN, and rechecked dsg. now; entire HD cath dsg soaked with bright red blood. INstructed to remove only top dsg; did as such and placed 2 folded 4x4 over top and then reapplied IV bag for weight. PCN Disa at bedside and observed. Kept
pts hob up.
[2024-07-26 17:14] LABS: Glucose - Point of Care 224 mg/dl (70-99)
--- NOTE | 2024-07-26 17:28 | RR ---
A Rapid Response was called on this patient, please see Rapid Response form.
Telemetry alarming- HR in 180s -RR called, ECG obtained. Pt spontaneously converted back to SR on tele, but again flipped into SVT, increasing to over 200, pt became symptomatic, unable to obtain bp, 'I don't feel well, 'I can't catch my breath'
then pt not responding to verbal stimulus, code called, providers at bedside. Pt then converted once again to SR, orders rec'd per Dr. Anton, labs drawn and sent, 5 mg IV Lopressor administered. Please see flowsheet for details.
[2024-07-26] MEDS: LOPRESSOR 5 MG IV (17:59)
[2024-07-26] MEDS: NOVOLOG FLEXPEN-MODERATE RESISTANCE 3 UNITS SC (18:00)
--- NOTE | 2024-07-26 18:03 | W.PN.UPDATE ---
Update Note
Progress Note Update
Rapid response was called
Patient finished her exchange session
Patient had a sudden episode of syncopal episode and heart rate around 180 with rhythm consistent with atrial fibrillation
No history of atrial fibrillation per family
Patient slowly regained her consciousness and her heart rate slowed down to 80-90
Blood pressure 130/70 on monitor
Will give 1 dose of IV metoprolol 5 mg
No chest pain
No fever or hypotension
Will check troponin, order stat chest x-ray
Currently she is in sinus rhythm, converted spontaneously
Patient was given FFP for bleeding from access after exchange. She has low fibrinogen earlier, will avoid systemic anticoagulation due to risk of bleeding
Patient does not have chief guard. We will consult cardiology
Order echocardiogram
Will continue to monitor
d/w family at bed side
--- NOTE | 2024-07-26 18:11 | PTCARENOTE ---
Pt continues oozing from neck dressing, reinforced x2 with assistance of VAT RN and Clinical Educator Dejah. Pt turned and cleaned for incontinence of stool, purewick removed and replaced with covidien x2. CHG bath done and linens changed. Former
KAYLEY Peterson in room.
[2024-07-26 18:39] LABS: Blood Urea Nitrogen 13 mg/dl (7-17); Calcium 8.2 mg/dl (8.4-10.2); Carbon Dioxide 16 mmol/L (22-30); Chloride 112 mmol/L (98-107); Estimated Creatinine Clearance 59 ml/min; Glucose 198 mg/dl (70-99); Potassium 3.3 mmol/L (3.5-5.1); Sodium 137 mmol/L (135-145); eGFR > 60.00
[2024-07-26 18:45] LABS: Troponin I 0.041 ng/ml
--- NOTE | 2024-07-26 19:45 | PTCARENOTE ---
premix concrete batcher. pt c/o discomfort on buttocks, turned, inc urine, skin care, repositioned. B/L IV WNL. RIJ cath with bloody drainage on dressing, will monitor. prn dilaudid given. POC discussed w/pt and dtr.
[2024-07-26] MEDS: CELLCEPT 1000 MG PO (20:12)
[2024-07-26] MEDS: LANTUS 0.07 UNITS SC (20:12)
[2024-07-26] MEDS: MAGNESIUM OXIDE 500 MG PO (20:13)
[2024-07-26] MEDS: KCL 270 MEQ IV (20:26)
[2024-07-26 21:48] LABS: Glucose - Point of Care 197 mg/dl (70-99)
[2024-07-26] MEDS: CELLCEPT TUBE (21:56)
[2024-07-26] MEDS: SOLU-MEDROL 258 MG IV (22:18)
[2024-07-27] VITALS (25 sets, daily range): BP systolic 103–165; BP diastolic 68–109; PULSE 68; O2SAT 98; BMI 22.2
[2024-07-27] MEDS: DILAUDID 0.25 MG IV ×6 (00:51→23:55)
[2024-07-27] MEDS: DILAUDID 0.5 MG IV ×5 (02:02→21:46)
[2024-07-27 02:24] LABS: % Basophils 0.1 % (0-2); % Immature Granulocytes 0.5 % (0-0.5); % Lymphocytes 2.6 % (20.5-51.1); % Monocytes 2.1 % (1.7-9.3); % Neutrophils 94.7 % (42.2-75.2); Absolute Immature Granulocytes 0.1 10^3/uL (0-0.05); Absolute Lymphocytes 0.3 10^3/uL (1.2-3.4); Absolute Monocytes 0.2 10^3/uL (0.1-0.6); Absolute Neutrophils 9.4 10^3/uL (1.4-6.5); Hematocrit 26.7 % (37.0-47.0); Hemoglobin 8.8 g/dL (12.0-16.0); Mean Corpuscular Hgb 28.4 pg (27.0-31.0); Mean Corpuscular Volume 86.1 fL (81.0-99.0); Mean Platelet Volume 9.2 fL (7.4-10.4); Nucleated Red Blood Cells % 0 %; Platelet Count 143 10^3/uL (130-400); Red Cell Dist. Width 14.3 % (11.5-14.5); White Blood Cell Count 9.9 10^3/uL (4.8-10.8)
[2024-07-27 02:32] LABS: INR 1.41; PT 17.8 Sec (11.4-14.6)
[2024-07-27 02:33] LABS: APTT 35.7 Sec (23.4-35.0)
[2024-07-27 02:59] LABS: Blood Urea Nitrogen 12 mg/dl (7-17); Calcium 7.8 mg/dl (8.4-10.2); Carbon Dioxide 20 mmol/L (22-30); Chloride 116 mmol/L (98-107); Estimated Creatinine Clearance 68 ml/min; Glucose 174 mg/dl (70-99); LDH 181 U/L (120-246); Magnesium 1.5 mg/dl (1.6-2.3); Phosphorus 2.2 mg/dl (2.5-4.5); Potassium 3.7 mmol/L (3.5-5.1); Sodium 138 mmol/L (135-145); eGFR > 60.00
[2024-07-27 03:18] LABS: Fibrinogen 98 MG/DL (199-459)
[2024-07-27] MEDS: SYNTHROID 50 MCG TUBE (05:56)
--- NOTE | 2024-07-27 06:23 | W.PN.HOSP.TC ---
Today's Communication/Plan
-
Uneventful night
Changed to oral metoprolol
Follow-up with echo and bandoleer packer recommended
Will discuss with neurology and hematology, appreciate input
Assessment / Plan
Assessment / Plan
Physical Exam
General: Appears chronically, not in distress, expressed pain in both legs.
HEENT: Normocephalic, Atraumatic, EOMI, MMM
Respiratory: Clear to Auscultation bilaterally
Cardiac: Normal S1/S2, Regular Rate and Rhythm
GI: Soft, Nontender, Nondistended, Normal Bowel Sounds
Extremities: No Clubbing, Cyanosis, or Edema
Neuro: AAOX3, followed commands
Psych: calm
#Rapid response on evening of 07/26
Noted on a separate note
She had uneventful night. No more cardiac arrhythmia or syncopal episode
Will discuss with neurology
She had rapid response on 07/24 with syncopal episode. Workup did not show findings of acute stroke/[employer]ELOP[employer]CH[employer]ICAL LEAD infection/seizure. Likely vasovagal
#Acute on Chronic pain syndrome with opioid dependency
#Recent laminectomy with w/ Rocio at [facility]
She takes gabapentin, opioids at home. d/w neurology , trial of high dose Lyrica for better absorption.
changed to IV Dilaudid, change to high dose q 4 hours,with as needed Dilaudid
Added laxatives
# Myasthenia gravis flare-up
She seems to be improving with resolution of dysphagia.
She started on modified diet, appreciate speech therapy help
Changed prednisone to IV Solu-Medrol, 1 g for 5 doses
Continue with pyridostigmine & CellCept
Consulted hematology for plasmapheresis. Discussed with IR, did nontunneled central line
Head CT negative, brain MRI neg done twice.
Might not need further exchange sessions
Appreciate hematology and neurology help
# Hypofibrinogenemia
Status post FFP 2 units 07/26.
#History of myasthenia gravis
Follows with Dr. Hood
Home regimen: Mestinon 150 mg twice a day, prednisone to 35 mg in the morning, CellCept 1000 mg twice a day
#Acute urinary tract infection
Considered complicated due to underlying immunocompromised status, no fever, leukocytosis resolved. No flank pain.
Status post IV Ancef in the ER
s/p IV Rocephin, urine cultures growing Escherichia coli Klebsiella pneumonia, both susceptible to Rocephin. She received total of 5 days, discussed with ID. No need for further antibiotics
#Depression
Continue Cymbalta
# Hyponatremia, mild.
# History of dysphagia, continue with speech therapy recommendation
# Hypomagnesemia, replace
# Hypothyroidism
Continue levothyroxine, recommend repeating TSH levels in 4-6 weeks
#Essential Hypertension
Uncontrolled.
hold ADY/ARB while undergoing pheresis, she is on IV metoprolol
# Type 2 diabetes
Holding Metformin we will add Lantus
c/w sliding scale insulin, carb controlled diet
# GERD
-PPI continued
#hyperlipidemia
-Statin continued
DVT prophylaxis�subcu Lovenox
Full code
Total time spent to see the patient on the floor, examine the patient, review data and lab results, discuss treatment plan with patient, consultants, nursing staff around 55 minutes.
Anticipated Discharge: > 48 hours
Subjective/Interval History
-
Date of Service: July 27, 2024
She had uneventful night. No more bleeding from central line. No more cardiac arrhythmia
Objective Data
-
Labs:
Laboratory Results
07/26/24 07/27/24
18:08 02:12
WBC 9.9
Hgb 8.8 L
Hct 26.7 L
Plt Count 143 D
PT 17.8 H
INR 1.41
APTT 35.7 H
Sodium 137 138
Potassium 3.3 L 3.7
Chloride 112 H 116 H
Carbon Dioxide 16 L 20 L
BUN 13 12
Creatinine 0.8 0.7
Glucose 198 H 174 H
Calcium 8.2 L 7.8 L
Vital Signs:
Vital Signs
Temp Pulse Resp BP Pulse Ox
98 F 74 10 140/78 96
07/27/24 04:39 07/27/24 04:39 07/27/24 04:39 07/27/24 04:39 07/27/24 04:16
I&O
07/25/24 07/26/24 07/27/24
06:59 06:59 06:59
Intake Total 2309 / 2384 2057 / 3 1926
Output Total 150 / 150 350 / 350 400 / 400
Balance 2159 / 2234 1708 / 1783 1527 / 1527
--- NOTE | 2024-07-27 07:43 | W.PN.NEURO.1 ---
Today's Communication / Plan
-
Discontinue plasmapheresis due to recurrent event of cardiovascular dysfunction during 2nd event, patient now experiencing no significant dysphagia
Start low-dose baclofen 2.5 mg 3 times a day for possible muscle spasms
Neuro Assessment/Plan
Assessment
Patient with previous diagnosis of myasthenia gravis presenting to this hospital with gradually progressive weakness in bilateral lower extremities also involving bilateral upper extremities distally greater than proximally.
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 Repeated EMG study performed during this hospitalization confirms that diagnosis and suggests significant worsening.
The patient initially was declining receipt of blood based products.
Developed dysphagia noted 07/24/2024, most likely secondary to worsening of myasthenia gravis
07/24/2024, patient developed acute onset of change in mental status leading to transfer to the intensive care unit. Events seem to a followed plasma exchange however were at the same time patient was retching, suggesting a possible vasovagal event
Lumbar puncture due to the possibility of underlying infectious etiology for the patient's symptomatology 07/26/2024 was unrevealing
Goal for plasmapheresis for dysphagia was a total of 5 treatments started 07/24/2024, second event of cardiac dysfunction on 07/26/2024
Plan
Discontinue plasmapheresis due to recurrent event of cardiovascular dysfunction during 2nd event, patient now experiencing no significant dysphagia
Start low-dose baclofen 2.5 mg 3 times a day for possible muscle spasms
Rehabilitation evaluations and treatment
Continue vitamin B12 replacement
Advanced steroids from prednisone 35 mg daily to methylprednisolone 1 g daily x 5, first day of increased dose was 07/24/2024
Continue pyridostigmine 150 mg twice daily
Replaced gabapentin with pregabalin 200 mg 3 times a day for improved absorption and potentially better pain control on 07/26/2024
Continue mycophenolate
Provide thiamine
Consider initiation of outpatient Rozanolixizumab-ken
Will follow
Subjective/Objective
Subjective Data
Date of Service: July 27, 2024
Patient reports continuing to have pain greater than 10 out of 10 intensity. Patient had an event of atrial fibrillation during plasma exchange
Objective Data
Vital Signs
Temp Pulse Resp BP Pulse Ox
36.6 C 77 0 133/97 99
07/27/24 04:39 07/27/24 06:00 07/27/24 06:00 07/27/24 06:00 07/27/24 06:00
Lab Results
07/27/24 02:12
07/27/24 02:12
PT 17.8 Sec (11.4-14.6) H 07/27/24 02:12
INR 1.41 07/27/24 02:12
APTT 35.7 Sec (23.4-35.0) H 07/27/24 02:12
Sodium 138 mmol/L (135-145) 07/27/24 02:12
Potassium 3.7 mmol/L (3.5-5.1) 07/27/24 02:12
BUN 12 mg/dl (7-17) 07/27/24 02:12
Glucose 174 mg/dl (70-99) H 07/27/24 02:12
Calcium 7.8 mg/dl (8.4-10.2) L 07/27/24 02:12
Phosphorus 2.2 mg/dl (2.5-4.5) L 07/27/24 02:12
LDL Cholesterol, Calc 17 mg/dl 07/21/24 05:38
Patient Allergies
aspirin Allergy (Verified 07/20/24 10:01)
Unknown
oxycodone Allergy (Verified 07/20/24 10:01)
Unknown
Review of Systems
-
History Source: Patient
All other systems: Reviewed and negative
Musculoskeletal: Muscle Pain and Back Pain
Neuro: Negative Headache
Physical Exam
-
General: No Apparent Distress and Appears Stated Age
Eyes: Round OU, [place] Conjunctivae and No Ptosis
HEENT: Anicteric and Moist Mucous Membranes
Neck: Full Range of Motion
Respiratory: No Dyspnea
Cardiac: No JVD
Extremities: No Clubbing, No Cyanosis and Edema +1 (In bilateral hands)
Psych: Intact Judgement/Insight
Extended Neurological Exam
Mood & Affect: Anxious
Attention Span & Concentration: Awake, Alert, Interactive and No Difficulty with 2 Step Request
Memory: Unremarkable
Tremor: Hand Tremor Absent and Head Tremor Absent
Speech: Quality Unremarkable and Quantity Unremarkable
Cranial Nerve II: Left Eye: Pupillary Size Unremarkable and Visual Schaeffer Grossly Intact
Cranial Nerve II: Right Eye: Pupillary Size Unremarkable and Visual Schaeffer Grossly Intact
Cranial Nerves III, IV, : Extraocular Movement: Grossly Intact
Cranial Nerve VII: Facial Symmetry: Normal Facial Symmetry
Cranial Nerve VIII: Hearing: Unremarkable Hearing to Normal Conversational Volume
Muscle Strength, Overall: Spontaneously Moves and Other (Minimal movement bilateral upper extremities, no movement bilateral lower extremities)
Muscle Bulk & Tone: Bulk Unremarkable and Increased Tone
Touch Sensation: Unremarkable
Gait & Station: Unable to Assess
Data Reviewed
-
Labs: Report Reviewed
Reviewed with: Nurse, Nurse Practioner and Patient
Old Records: Summarized
Past History
Past History
ED Past Medical History: Cancer (Breast hyperplasia), HTN, Hypercholesterolemia, NIDDM, Hypothyroidism and Other (Myasthenia gravis)
ED Past Surgical History: Bowel resection, Gynecological (Tubal ligation), Orthopedic (Knee replacement, hip replacement) and Other (Lumbar laminectomy, left breast nipple exploration and excision of central duct)
Family History
Family History: Other (reviewed and non-contributory)
Medications
-
Medications:
Generic Name Dose Route Start Last Admin
Trade Name Freq PRN Reason Stop Dose Admin
Acetaminophen 650 mg 07/20/24 13:23
Acetaminophen 650 Mg Rectal Suppository RECTAL 08/17/24 13:22
Q4HPRN PRN
MORRIS, mild pain, or temp >100.4F
Acetaminophen 650 mg 07/27/24 06:54
Acetaminophen 325 Mg Tablet PO 08/17/24 13:22
Q4HPRN PRN
MORRIS, mild pain, or temp >100.4F
Dextrose 12.5 grams 07/20/24 13:23
Dextrose 50% (0.5 Grams/Ml) 50 Ml Syringe IV 08/17/24 13:22
[id number] PRN
hypoglycemia
Protocol
Enoxaparin Sodium 40 mg 07/21/24 08:00 07/26/24 09:56
Enoxaparin Sodium 40 Mg/0.4 Ml Syringe SC 08/18/24 07:59 40 mg
DAILY JESSIE Administration
Glucagon 1 mg 07/20/24 13:23
Glucagon 1 Mg Vial IM 08/17/24 13:22
PRN PRN
hypoglycemia
Protocol
Heparin Sodium 0 units 07/26/24 08:00 07/26/24 14:58
Heparin (1000 Units/Ml) 10,000 Units/10 Ml Vial INTRACATH 08/01/24 08:01 Not Given
Q48H JESSIE
Hydromorphone HCl 0.25 mg 07/25/24 10:00 07/27/24 04:09
Hydromorphone 0.25 Mg/0.5 Ml Syringe IV 08/08/24 09:59 0.25 mg
Q3HPRN PRN Administration
breakthrough pain
Hydromorphone HCl 0.5 mg 07/26/24 10:00 07/27/24 05:56
Hydromorphone 0.5 Mg/0.5 Ml Syringe IV 08/09/24 09:59 0.5 mg
Q4H JESSIE Administration
Methylprednisolone Sodium 258 mls @ 258 mls/hr 07/24/24 22:00 07/26/24 22:18
Succinate 1,000 mg/ Sodium IV 07/28/24 22:59 258 mls
Chloride Q24H JESSIE Administration
Albumin Human 12.5 grams in 250 mls @ 1,375 mls/hr 07/28/24 08:00
Albumin 5% INTRACATH 07/28/24 10:00
.Q11M JESSIE
Albumin Human 12.5 grams in 250 mls @ 1,375 mls/hr 07/30/24 08:00
Albumin 5% INTRACATH 07/30/24 10:00
.Q11M JESSIE
Albumin Human 12.5 grams in 250 mls @ 1,375 mls/hr 08/01/24 08:00
Albumin 5% INTRACATH 08/01/24 10:00
.Q11M JESSIE
Calcium Gluconate 2,700 mg/ 277 mls @ 0 mls/hr 07/28/24 08:00
Sodium Chloride IV 07/28/24 08:01
ONCE ONE
As Directed
Calcium Gluconate 2,700 mg/ 277 mls @ 0 mls/hr 07/30/24 08:00
Sodium Chloride IV 07/30/24 08:01
ONCE ONE
As Directed
Calcium Gluconate 2,700 mg/ 277 mls @ 0 mls/hr 08/01/24 08:00
Sodium Chloride IV 08/01/24 08:01
ONCE ONE
As Directed
Insulin Glargine 7 units/ 0.07 mls @ 0 mls/hr 07/26/24 20:00 07/26/24 20:12
Device SC 08/23/24 19:59 0.07 mls
HS JESSIE Administration
As Directed
Insulin Aspart 0 units 07/26/24 16:30 07/26/24 18:00
Insulin Aspart Moderate Resistance 300 Units/3 Ml Pen.Injctr SC 08/23/24 16:29 3 units
AC JESSIE Administration
Protocol
Levothyroxine Sodium 50 mcg 07/27/24 06:54
Levothyroxine 50 Mcg Tablet PO 08/22/24 05:59
DAILY @ 0600 JESSIE
Magnesium Oxide 500 mg 07/26/24 20:00 07/26/24 20:13
Magnesium Oxide 500 Mg Tablet PO 08/23/24 19:59 500 mg
BID JESSIE Administration
Metoprolol Tartrate 25 mg 07/27/24 08:00
Metoprolol 25 Mg Regular Release Tablet PO 08/24/24 07:59
BID JESSIE
Mycophenolate Mofetil 1,000 mg 07/26/24 20:00 07/26/24 20:12
Mycophenolate 500 Mg Tablet PO 08/23/24 19:59 1,000 mg
BID JESSIE Administration
Ondansetron HCl 4 mg 07/25/24 09:29 07/25/24 15:18
Ondansetron 4 Mg/2 Ml Vial IV 08/22/24 09:28 4 mg
Q6HPRN PRN Administration
NAUSEA/VOMITING
Pantoprazole Sodium 40 mg 07/27/24 08:00
Pantoprazole 40 Mg Delayed Release Tablet PO 08/24/24 07:59
DAILY JESSIE
Prednisone 30 mg/ Prednisone 5 35 mg 07/21/24 08:00 07/24/24 09:19
mg PO 08/18/24 07:59 Not Given
DAILY JESSIE
Pregabalin 200 mg 07/27/24 06:54
Pregabalin 100 Mg Capsule PO 08/23/24 15:59
TID JESSIE
Pyridostigmine [place] 150 mg 07/27/24 06:54
Pyridostigmine 60 Mg Tablet PO 08/21/24 11:36
BID JESSIE
Sodium Chloride 0 flush 07/20/24 14:00
Sodium Chloride 0.9% (Flush) Syringe IV 08/17/24 13:59
PER PROTOCOL JESSIE
--- NOTE | 2024-07-27 08:00 | PTCARENOTE ---
Pt rec'd from night RN, c/o '23/02' pain in bilat legs, medicated with PRN Dilaudid per orders. Pt SR/SB on tele, meds discussed with attending-orders rec'd and carried out. Pt pleasant and conversant, AOx3, able to feed herself breakfast. Pt turned
and repositioned, CHG bath provided, oral and amara care provided. Meds and assessment as documented, safe environment maintained.
[2024-07-27] MEDS: NOVOLOG FLEXPEN-MODERATE RESISTANCE 1 UNITS SC (08:13)
[2024-07-27] MEDS: MESTINON 150 MG PO ×2 (08:17→20:05)
[2024-07-27 08:23] LABS: Glucose - Point of Care 187 mg/dl (70-99)
[2024-07-27] MEDS: CELLCEPT 1000 MG PO ×2 (08:28→20:05)
[2024-07-27] MEDS: PROTONIX 40 MG PO (08:31)
[2024-07-27] MEDS: LOPRESSOR 25 MG PO ×2 (08:32→20:04)
[2024-07-27] MEDS: LYRICA 200 MG PO ×2 (08:32→22:11)
[2024-07-27] MEDS: MAGNESIUM OXIDE 500 MG PO ×2 (08:33→20:04)
[2024-07-27] MEDS: LOVENOX SC (08:39)
--- NOTE | 2024-07-27 09:23 | CON.CAR ---
Addendum entered and electronically signed by Maxi Contreras MD 07/27/24 11:27:
74 yo female with myasthenia gravis, HTN is admitted with MG flare. We are consulted because she syncopized in setting of SVT, HR 180+. She is back in sinus. Exam with RRR, no murmurs, trace LE edema. Tele: SVT 180s for about 10 min.
Paroxysmal SVT, new. With rapid rates and syncope. In setting of MG flare. Back in sinus. Continue metoprolol tartrate. Check echo.
Original Note:
Consultation
Consultation Request
Date/Time Consultation Requested: 07/26/24 5:40p
Date/Time Consultation Performed: 07/27/24 8:30a
Requesting Provider: Dr. Anton
Performing Provider: KEIRA Pagan for Dr. Contreras
Reason for Consultation: arrhythmia
Medical History
-
Chief Complaint: myasthenia gravis flare
History of Present Illness:
Mrs. Mayfield is a 74 yo female with myasthenia gravis, HTN, HLD, DM, hypothyroid, left breast duct cyst/surgery, bowel resection 1969's and recent laminectomy, who presents for LE weakness and dysphagia. She is admitted to the hospitalist service
with GI, neurology and heme/onc following. We are consulted for tachycardia/arrhythmia noted last night on telemetry. EKG and tele showed SVT, not Afib. She c/o feeling 'unwell' then passed out, BP dropped and then improved. SVT resolved on its
own back to NSR with PACs/PVCs and she was given IV Lopressor. This occurred in the setting of receiving plasmapheresis and also occurred days prior but no tele strips are available for review. Plasmapheresis has been stopped. Currently in NSR
and denies any cardiology complaints.
Past Medical History
Past Medical History: Other (as above)
Past Surgical History: Other (as above)
Social History
Tobacco: Non-Smoker
Alcohol: None
Family History
Family History: Reviewed & Not Pertinent
Allergies / Home Medications
Allergy/AdvReac Type Severity Reaction Status Date / Time
aspirin Allergy Unknown Verified 07/20/24 10:01
oxycodone Allergy Unknown Verified 07/20/24 10:01
�Medication �Instructions �Recorded �Confirmed �Type
acetaminophen 325 mg tablet 650 mg PO Q6HPRN PRN mild pain 07/20/24 07/20/24 History
(Tylenol)
alendronate 70 mg tablet (Fosamax) 70 mg PO WE OSTEOPOROSIS 07/20/24 07/20/24 History
ascorbic acid (vitamin C) 1,000 mg 1,000 mg PO DAILY Supplement 07/20/24 07/20/24 History
tablet (Vitamin C)
bisacodyl 10 mg rectal suppository 10 mg OH DAILYPRN PRN if no bm 07/20/24 07/20/24 History
(Dulcolax (bisacodyl)) aftr mom
calcium carbonate 500 mg PO DAILY Supplement 07/20/24 07/20/24 History
cholecalciferol (vitamin D3) 50 50 mcg PO DAILY Supplement 07/20/24 07/20/24 History
mcg (2,000 unit) capsule (Vitamin
D3)
cyanocobalamin (vitamin B-12) 2,000 mcg PO DAILY Supplement 07/20/24 07/20/24 History
1,000 mcg tablet
docusate sodium 100 mg capsule 100 mg PO BID Constipation 07/20/24 07/20/24 History
(Colace)
duloxetine 30 mg capsule,delayed 30 mg PO BID Mental Health/Anxiety 07/20/24 07/20/24 History
release (Cymbalta)
enoxaparin 40 mg/0.4 mL 40 mg SC DAILY Blood Clot 07/20/24 07/20/24 History
subcutaneous syringe (Lovenox) Prevention/Tx
gabapentin 400 mg tablet 800 mg PO TID Pain 07/20/24 07/20/24 History
hydromorphone 2 mg tablet 2 mg PO Q4HPRN PRN severe pain 07/20/24 07/20/24 History
levothyroxine 50 mcg tablet 50 mcg PO DAILY Thyroid 07/20/24 07/20/24 History
(Synthroid)
lisinopril 10 mg tablet 10 mg PO DAILY Blood Pressure 07/20/24 07/20/24 History
magnesium hydroxide 400 mg/5 mL 2,400 mg PO [id number] PRN 07/20/24 07/20/24 History
oral suspension (Milk of Magnesia) constipation
menthol 0.44 %-zinc oxide 20.6 % 1 applic topical TID Skin Issues 07/20/24 07/20/24 History
topical ointment (Moisture Barrier
Ointment)
metformin 500 mg tablet 500 mg PO BID Diabetes 07/20/24 07/20/24 History
methocarbamol 500 mg tablet 500 mg PO QIDPRN PRN muscle spasms 07/20/24 07/20/24 History
morphine 15 mg tablet,extended 15 mg PO Q12H Pain 07/20/24 07/20/24 History
release
mycophenolate mofetil 500 mg tablet 1,000 mg PO BID INFLAMMATION 07/20/24 07/20/24 History
ondansetron 4 mg disintegrating 4 mg PO Q6HPRN PRN nausea 07/20/24 07/20/24 History
tablet
pantoprazole 40 mg tablet,delayed 40 mg PO BID Gastrointestinal Issue 07/20/24 07/20/24 History
release (Protonix)
prednisone 10 mg tablet 35 mg PO DAILY INFLA 07/20/24 07/20/24 History
pyridostigmine bromide 60 mg tablet 150 mg PO BID Neurological 07/20/24 07/20/24 History
Condition
rosuvastatin 20 mg tablet (Crestor) 20 mg PO DAILY High Cholesterol 07/20/24 07/20/24 History
sennosides 8.6 mg tablet (senna) 17.2 mg PO BIDPRN PRN constipation 07/20/24 07/20/24 History
sodium phosphates 19 gram-7 118 ml [place] DAILYPRN PRN if no bm 07/20/24 07/20/24 History
gram/118 mL enema (Fleet Enema) aftr dulcalox
zinc oxide 1 ea topical DAILYPRN PRN b/l 07/20/24 07/20/24 History
buttock
zinc oxide 1 ea topical TID b/l buttock 07/20/24 07/20/24 History
Review of Systems
-
History Source: Patient
All other systems: Negative unless noted
Physical Exam
Vital Signs
Temp Pulse Resp BP Pulse Ox
98.7 F 96 0 139/81 99
07/27/24 08:00 07/27/24 08:32 07/27/24 06:00 07/27/24 08:32 07/27/24 06:00
Lab Results
07/27/24 02:12
07/27/24 02:12
Troponin I 0.041 ng/ml H* 07/26/24 18:08
Physical Exam
General: Well Developed
HEENT: Normocephalic and Anicteric
Respiratory: Clear and Non Labored Respirations
Cardiac: S1/S2, Regular Rhythm and Peripheral Edema (b/l LE and b/l hands)
Breast: Deferred by me
GI: Soft, Non Tender, Non Distended and Normal Bowel Sounds
Rectal: Deferred by Provider
Genito-urinary: No Costovertebral Tender
Musculoskeletal: No Clubbing
Skin: Warm and Dry
Neuro: AO x 3
Psych: Calm
Impression / Plan
-
SVT - symptomatic then with syncope/hypotension.
- converted to NSR on her own. did receive IV Lopressor.
- maintaining NSR on tele, with PACs/PVCs.
- continue Lopressor and monitor on tele.
- check echo.
- no Afib.
Myasthenia gravis - acute flare.
- management per hospitalist, neurology following.
- stopped plasmapheresis due to recurrent SVT/hypotension/syncope.
HTN - stable on meds, continue.
- monitor.
Hypofibrinogenemia - hematology following.
Dysphagia - GI managing.
Stable issues managed by hospitalist:
HLD
DM
hypothyroidism
hyponatremia
hypomagnesemia
Data Reviewed
-
EKG: Tracing Personally Visualized and interpreted (SVT 179 bpm, bifascicular block, LVH with repolarization abn.)
Radiology: Report Reviewed by me (07/26/24: Interval development of confluent increased parenchymal opacity involving the left lower lung. Main differential considerations of atelectasis and/or pneumonia.)
Labs: Labs Reviewed by me
Old Records: Reviewed
--- NOTE | 2024-07-27 10:51 | PTCARENOTE ---
Plan discussed with neurology and cardiology, as well as attending Dr. Anton. No futher plasmapheresis sessions planned. IR consult placed to remove pheresis cath per Dr. Bustos. Pt in agreement.
--- NOTE | 2024-07-27 11:29 | W.PN.ID1 ---
Date of Service
Date of Service: July 27, 2024
Today's Communication
Sign off
Assessment / Plan
Reported neurological event (?Absence seizure ?med effect)
-No evidence of clinical meningitis at present.
Progressive ascending weakness
- Concern for GBS
- Pt receiving plasmapheresis, although now held for cardiac events.
Hx myasthenia gravis
Leukocytosis; suspect steroid related
Bacteriuria
Hypothyroidism
HTN
Dyslipidemia
Hx breast CA
Recommendations:
Current clinical presentation not consistent with meningitis.
CSF fluid without pleocytosis.
Prior urine cultures noted, although patient without symptomatology. Patient has been on 5 days of appropriate therapy. No need for further antibiotics.
Continue off antibiotics. Nothing further to add from a Infectious Diseases standpoint.
Will see again at your request.
����������������������������������������������������������
Chief Complaint
-: Other (Meningitis)
Subjective / Review of Systems
Review of Systems: No Fever, No Chills and No Stiff Neck
Vital Signs / Physical Exam
Vital Signs
Vital Signs
Temp Pulse Resp BP Pulse Ox
98.7 F 65 9 114/76 96
07/27/24 08:00 07/27/24 10:24 07/27/24 10:24 07/27/24 10:24 07/27/24 11:01
Physical Exam
Constitutional: Comfortable, Acutely Ill and Non-toxic
Head: Normocephalic
Cardiovascular: S1/S2; Negative S3/S4
Pulmonary: Non Labored
Gastrointestinal: Soft, Non Tender, Non Distended and Normal Bowel Sounds
Extremities: Edema (1+ B/L LE)
Skin: Warm and Dry; Negative Rash or Jaundice
Neurological: Awake, Alert and Oriented; Negative Meningeal Signs (No nuchal rigidity. Full cervical range of motion.)
Psychological: Calm
Objective Data
Lab Data
Lab Results
07/27/24 02:12
07/27/24 02:12
PT 17.8 Sec (11.4-14.6) H 07/27/24 02:12
INR 1.41 07/27/24 02:12
APTT 35.7 Sec (23.4-35.0) H 07/27/24 02:12
Estimated Creat Clear 68 ml/min 07/27/24 02:12
Lactic Acid 1.8 mmol/L (0.7-2.0) 07/24/24 19:05
Total Bilirubin 0.4 mg/dl (0.2-1.3) 07/25/24 06:10
AST 11 U/L (14-36) L 07/25/24 06:10
ALT < 10 U/L (0-35) 07/25/24 06:10
Alkaline Phosphatase 42 U/L (38-126) 07/25/24 06:10
Most recent labs reviewed.
Micro Results:
07/25/24 14:55 CSF Culture - Preliminary
Csf No Growth After 48 Hours
Gram Stain - Preliminary
07/25/24 01:27 Salmonella/Shigella Culture - Final
Feces/Stool No Salmonella, Shigella, Aeromonas or Plesiomonas species
isolated.
Campylobacter Culture - Final
No Campylobacter species isolated.
Shiga Toxin Test - Final
No E. coli Shiga Toxin 1 or 2 detected.
07/25/24 14:55 Meningitis/Encephalitis Panel (PCR) - Final
Csf
07/25/24 14:55 Fungal Culture - Preliminary
Csf Culture in progress.
Positive cultures are reported as soon as detected.
Final report to follow in four to five weeks.
07/25/24 14:55 Acid Fast Bacilli Smear - Pending
Csf Acid Fast Bacilli Culture - Pending
07/25/24 01:27 C. difficile GDH Antigen & Toxins - Final
Feces/Stool Negative for toxigenic C.difficile
- Final
Negative for Norovirus GI and GII.
07/20/24 11:03 Urine Culture - Final
Urine Escherichia coli
Klebsiella pneumoniae
07/20/24 22:05 MRSA Screen - Final
Nose No Methicillin Resistant Staphylococcus aureus isolated.
Imaging:
07/24/2024 CXR (portable): Dobbhoff tube is present. Lungs are slightly hypoinflated but clear of consolidation. Please see full dictation for additional detail. Film personally viewed.
07/24/2024 CT head: No evidence of acute intracranial abnormality.
Care Review
Plan reviewed with: Nurse
[2024-07-27] MEDS: NOVOLOG FLEXPEN-MODERATE RESISTANCE 3 UNITS SC ×2 (12:13→17:41)
[2024-07-27 12:21] LABS: Glucose - Point of Care 210 mg/dl (70-99)
--- NOTE | 2024-07-27 12:36 | CM ---
CM following re: discharge planning.
Reviewed pt's chart,met with pt.
Pt's daughter has been notified that [facility] will accept her mother back when she is medically stable . Pt was at [facility] for a short term rehab, not a bed hold.
[facility] nursing report: [phone]
Discharge instructions fax:[phone]
D/C plan: Return back to [facility] to continue on skilled services and a possibly transition to a [facility] care.
CM will follow to assist pt with discharge back to [facility].
--- NOTE | 2024-07-27 13:59 | W.PN.ONC2 ---
Today's Communication / Plan
-
.
Impression
Impression
Myasthenia gravis flare-up
UTI
hyponatremia
Chronic pain syndrome with opioid dependency
hypofibrinogenemia
Plan
Plan
1st PLEX 07/24 was albumin exchange only. 2nd PLEX 07/26 2000cc albumin exchange, 3U FFP due to low fibrinogen. No further PLEX recommended per neurology. [facility] called [facility] and cancelled remaining exchange. PLease reach out if PLEX needs to be
reinitiated.
recommend cryo for fibrinogen <100 - I reviewed risk/benefit with patient. She understands that cryoprecipitate is a blood product and would like to receive to reduce risk of bleeding with low fibrinogen. Consent placed on chart. She tells me that
she is not willing to accept PRBC.
continue to monitor daily cbc, bmp, phos, magnesium, PT/INR, PTT, fibrinogen, LDH
hold ADY/ARB while undergoing pheresis
Subjective/Objective
Subjective
events overnight reivewed
denies bleeding
Vital Signs:
Vital Signs
Temp Pulse Resp BP Pulse Ox
97.9 F 58 15 135/74 100
07/27/24 12:20 07/27/24 12:00 07/27/24 12:00 07/27/24 12:00 07/27/24 12:00
Lab Results:
Laboratory Data
WBC 9.9 10^3/uL (4.8-10.8) 07/27/24 02:12
Hgb 8.8 g/dL (12.0-16.0) L 07/27/24 02:12
Plt Count 143 10^3/uL (130-400) D 07/27/24 02:12
PT 17.8 Sec (11.4-14.6) H 07/27/24 02:12
INR 1.41 07/27/24 02:12
APTT 35.7 Sec (23.4-35.0) H 07/27/24 02:12
eGFR > 60.00 07/27/24 02:12
Orders
Orders
Orders From Last 24 Hours
07/27/24 02:12
BMP [Basic Metabolic Panel] IN AM
CBC/With Diff [Complete Blood Count/With Diff] IN AM
Fibrinogen IN AM
LDH IN AM
Magnesium IN AM
PT/INR [Prothrombin Time] IN AM
PTT IN AM
Phosphorus IN AM
07/28/24 06:00
BMP [Basic Metabolic Panel] IN AM
CBC/With Diff [Complete Blood Count/With Diff] IN AM
Fibrinogen IN AM
LDH IN AM
Magnesium IN AM
PT/INR [Prothrombin Time] IN AM
PTT IN AM
Phosphorus IN AM
07/28/24 08:00
Albumin Human 5% 250 ml [Albumin 5%] 12.5 grams in 250 ml INTRACATH 1,375 mls/hr
Calcium Gluconate [Calcium Gluconate 10% Injection] 2,700 mg 0.9% Sodium Chloride 250 ml [Nss] 250 ml IV ONCE
07/29/24 06:00
BMP [Basic Metabolic Panel] IN AM
CBC/With Diff [Complete Blood Count/With Diff] IN AM
Fibrinogen IN AM
LDH IN AM
Magnesium IN AM
PT/INR [Prothrombin Time] IN AM
PTT IN AM
Phosphorus IN AM
07/30/24 06:00
BMP [Basic Metabolic Panel] IN AM
CBC/With Diff [Complete Blood Count/With Diff] IN AM
Fibrinogen IN AM
LDH IN AM
Magnesium IN AM
PT/INR [Prothrombin Time] IN AM
PTT IN AM
Phosphorus IN AM
07/30/24 08:00
Albumin Human 5% 250 ml [Albumin 5%] 12.5 grams in 250 ml INTRACATH 1,375 mls/hr
Calcium Gluconate [Calcium Gluconate 10% Injection] 2,700 mg 0.9% Sodium Chloride 250 ml [Nss] 250 ml IV ONCE
07/31/24 06:00
BMP [Basic Metabolic Panel] IN AM
CBC/With Diff [Complete Blood Count/With Diff] IN AM
Fibrinogen IN AM
LDH IN AM
Magnesium IN AM
PT/INR [Prothrombin Time] IN AM
PTT IN AM
Phosphorus IN AM
08/01/24 06:00
BMP [Basic Metabolic Panel] IN AM
CBC/With Diff [Complete Blood Count/With Diff] IN AM
Fibrinogen IN AM
LDH IN AM
Magnesium IN AM
PT/INR [Prothrombin Time] IN AM
PTT IN AM
Phosphorus IN AM
08/01/24 08:00
Albumin Human 5% 250 ml [Albumin 5%] 12.5 grams in 250 ml INTRACATH 1,375 mls/hr
Calcium Gluconate [Calcium Gluconate 10% Injection] 2,700 mg 0.9% Sodium Chloride 250 ml [Nss] 250 ml IV ONCE
08/02/24 06:00
BMP [Basic Metabolic Panel] IN AM
CBC/With Diff [Complete Blood Count/With Diff] IN AM
Fibrinogen IN AM
LDH IN AM
Magnesium IN AM
PT/INR [Prothrombin Time] IN AM
PTT IN AM
Phosphorus IN AM
08/03/24 06:00
BMP [Basic Metabolic Panel] IN AM
CBC/With Diff [Complete Blood Count/With Diff] IN AM
Fibrinogen IN AM
LDH IN AM
Magnesium IN AM
PT/INR [Prothrombin Time] IN AM
PTT IN AM
Phosphorus IN AM
--- NOTE | 2024-07-27 14:58 | PTCARENOTE ---
VAT RN Jaki removed pheresis cath per orders. Pt now having echo done. Q2T maintained, pt +BM earlier this afternoon. Hygiene care provided.
--- NOTE | 2024-07-27 15:22 | VATNOTE ---
MD order to remove right internal jugular phoresis catheter. Removed intact following hospital procedure with bed in trendelenberg position. Direct pressure applied for 10 minutes. Sterile occlusive dressing applied. Dry and intact at this time.
Primary care RN aware.
--- NOTE | 2024-07-27 15:50 | PTCARENOTE ---
Saji Faust called to arrange for plasmapheresis tomorrow; this RN informed them that neurology is cancelling further treatments. Dr. Bustos updated and called [facility]aji Faust back to confirm that plasmapheresis is cancelled.
--- NOTE | 2024-07-27 16:13 | PTCARENOTE ---
Pt with melissa RAMOS removed d/t discomfort-pericare provided with calazime. Pt turned and repositioned, sleeping comfortably, family left room.
[2024-07-27] MEDS: LIORESAL PO (16:43)
[2024-07-27] MEDS: LYRICA PO (16:44)
[2024-07-27 17:52] LABS: Glucose - Point of Care 223 mg/dl (70-99)
--- NOTE | 2024-07-27 18:06 | PTCARENOTE ---
2 units cryoprecipitate ordered by hematology....1st unit Cryo obtained, upon verification process, product bar code not scanning so pink sheet obtained from blood bank. Unit hung at 18:00 and pt tolerating well at this time.
Pt due for 18:00 dose of Dilaudid however due to drowsiness, requests to hold off on dose and reassess pain level later.
[2024-07-27] MEDS: DILAUDID IV (18:17)
--- NOTE | 2024-07-27 18:36 | PTCARENOTE ---
1st unit cryo completed, no s/s transfusion reaction. 2nd unit obtained and hung at 18:32.
[2024-07-27 19:00] LABS: C.neoformans Antigen Negative (Negative)
[2024-07-27] MEDS: LIORESAL 2.5 MG PO (20:04)
[2024-07-27] MEDS: LANTUS 0.07 UNITS SC (21:47)
[2024-07-27 21:51] LABS: Glucose - Point of Care 198 mg/dl (70-99)
[2024-07-27] MEDS: SOLU-MEDROL 258 MG IV (22:14)
[2024-07-27] MEDS: FLUSH (NSS) 2 FLUSH IV (22:14)
--- NOTE | 2024-07-27 22:43 | PTCARENOTE ---
ax3 sinus jamel pvc's pac's- htn resolved after Lopressor po- pain managed with iv Dilaudid- hs care given remains on turn schedule.
[2024-07-28] VITALS (14 sets, daily range): BP systolic 96–146; BP diastolic 66–119; O2SAT 99; BMI 22.2
[2024-07-28] MEDS: DILAUDID 0.5 MG IV ×7 (01:00→23:10)
--- NOTE | 2024-07-28 03:42 | PTCARENOTE ---
difficult time getting pain under control. pt requires prn's on top of scheduled dilaudid. - finally reports pain being controlled-
--- NOTE | 2024-07-28 03:43 | PTCARENOTE ---
Addendum entered by Fantasma Cehrry RN 07/28/24 04:01:
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
Original Note:
two short bursts of svt self contained- labs drawn. pt asymptomatic
[2024-07-28 03:47] LABS: % Immature Granulocytes 0.6 % (0-0.5); % Lymphocytes 2.9 % (20.5-51.1); % Neutrophils 94.5 % (42.2-75.2); Absolute Immature Granulocytes 0.1 10^3/uL (0-0.05); Absolute Lymphocytes 0.3 10^3/uL (1.2-3.4); Absolute Monocytes 0.2 10^3/uL (0.1-0.6); Hematocrit 22.1 % (37.0-47.0); Hemoglobin 7.4 g/dL (12.0-16.0); Mean Corp Hgb Conc. 33.5 g/dL (33.0-37.0); Mean Corpuscular Hgb 28.9 pg (27.0-31.0); Mean Corpuscular Volume 86.3 fL (81.0-99.0); Mean Platelet Volume 10.1 fL (7.4-10.4); Nucleated Red Blood Cells % 0 %; Platelet Count 106 10^3/uL (130-400); Red Blood Cell Count 2.56 10^6/uL (4.20-5.40); Red Cell Dist. Width 14.1 % (11.5-14.5); White Blood Cell Count 8.5 10^3/uL (4.8-10.8)
[2024-07-28 03:51] LABS: Blood Urea Nitrogen 10 mg/dl (7-17); Calcium 7.8 mg/dl (8.4-10.2); Carbon Dioxide 26 mmol/L (22-30); Chloride 114 mmol/L (98-107); Estimated Creatinine Clearance 59 ml/min; Glucose 169 mg/dl (70-99); LDH 167 U/L (120-246); Magnesium 1.6 mg/dl (1.6-2.3); Phosphorus 1.6 mg/dl (2.5-4.5); Potassium 3.1 mmol/L (3.5-5.1); Sodium 136 mmol/L (135-145); eGFR > 60.00
[2024-07-28 03:52] LABS: INR 1.12; PT 14.7 Sec (11.4-14.6)
[2024-07-28 03:53] LABS: APTT 29.3 Sec (23.4-35.0)
[2024-07-28 03:54] LABS: Fibrinogen 175 MG/DL (199-459)
[2024-07-28] MEDS: KCL 270 MEQ IV (04:35)
[2024-07-28] MEDS: SYNTHROID 50 MCG PO (05:35)
--- NOTE | 2024-07-28 06:39 | W.PN.HOSP.TC ---
Today's Communication/Plan
-
Replace K
c/w Toprol
c/w PT
Place back on oral morphine, change Dilaudid to PRN
added Baclofen
Oral iron.
Assessment / Plan
Assessment / Plan
Physical Exam
General: Appears chronically, not in distress, less pain in both leg
HEENT: Normocephalic, Atraumatic, EOMI, MMM
Respiratory: Clear and limited to Auscultation bilaterally
Cardiac: Normal S1/S2,
GI: Soft, Nontender, Nondistended, Normal Bowel Sounds
Extremities: No cyanosis
Neuro: AAOX3, followed commands
Psych: calm
#Rapid response on evening of 07/26
Noted on a separate note
She had uneventful night. No more cardiac arrhythmia or syncopal episode
no need for more exchnage.
She had rapid response on 07/24 with syncopal episode. Workup did not show findings of acute stroke/[employer] infection/seizure. Likely vasovagal
# SVT episode
Currently stable heart rate on beta-carmen
Echocardiogram showed LVEF 65 to 70%, no regional wall motion abnormalities, normal RV size and function, aortic sclerosis without stenosis.
Appreciate cardiology input
#Acute on Chronic pain syndrome with opioid dependency
#Recent laminectomy with w/ Rocio at [facility]
She takes gabapentin, opioids at home. d/w neurology , trial of high dose Lyrica for better absorption, added Baclofen for muscle spasm.
changed to IV Dilaudid PRN, restart oral morphine
Added laxatives
# Myasthenia gravis flare-up
She seems to be improving with resolution of dysphagia.
She started on modified diet, appreciate speech therapy help
Changed prednisone to IV Solu-Medrol, 1 g for 5 doses
Continue with pyridostigmine & CellCept
Consulted hematology for plasmapheresis. Discussed with IR, did nontunneled central line. She received 2 sessions of plasmapheresis but noticed to have post procedure complications syncope/arrhythmia/hypofibrinogenemia
Head CT negative, brain MRI neg done twice.
Appreciate hematology and neurology help
# Acute blood loss anemia with possible iron deficiency anemia
Will start on oral iron
Patient does not accept blood transfusion.
No more active bleeding noted. Fibrinogen level 175
# Hypofibrinogenemia
improved post FFP 4 units & cryoprecipitate 2 units.
#History of myasthenia gravis
Follows with Dr. Hood
Home regimen: Mestinon 150 mg twice a day, prednisone to 35 mg in the morning, CellCept 1000 mg twice a day
#Acute urinary tract infection
Considered complicated due to underlying immunocompromised status, no fever, leukocytosis resolved. No flank pain.
Status post IV Ancef in the ER
s/p IV Rocephin, urine cultures growing Escherichia coli Klebsiella pneumonia, both susceptible to Rocephin. She received total of 5 days, discussed with ID. No need for further antibiotics
#Depression
Continue Cymbalta
# Hyponatremia, mild.
# History of dysphagia, continue with speech therapy recommendation
# Hypomagnesemia, replace
# Hypothyroidism
Continue levothyroxine, recommend repeating TSH levels in 4-6 weeks
#Essential Hypertension
better controlled.
hold ADY/ARB while undergoing pheresis, she is on metoprolol
# Type 2 diabetes
Holding Metformin
c/w ISS & Lantus
carb controlled diet
# GERD
-PPI continued
#hyperlipidemia
DVT prophylaxis�subcu Lovenox
Full code
Total time spent to see the patient on the floor, examine the patient, review data and lab results, discuss treatment plan with patient, consultants, nursing staff around 55 minutes.
Anticipated Discharge: > 48 hours
Subjective/Interval History
-
Date of Service: July 28, 2024
No chest pain
No sob
Objective Data
-
Labs:
Laboratory Results
07/28/24
03:22
WBC 8.5
Hgb 7.4 L
Hct 22.1 L
Plt Count 106 L D
PT 14.7 H
INR 1.12
APTT 29.3
Sodium 136
Potassium 3.1 L
Chloride 114 H
Carbon Dioxide 26
BUN 10
Creatinine 0.8
Glucose 169 H
Calcium 7.8 L
Vital Signs:
Vital Signs
Temp Pulse Resp BP Pulse Ox
98 F 70 9 106/66 94
07/28/24 03:35 07/28/24 06:00 07/28/24 06:00 07/28/24 06:00 07/28/24 06:00
I&O
07/26/24 07/27/24 07/28/24
06:59 06:59 06:59
Intake Total 2057 / 2132 2774 / 2774 970 / 970
Output Total 350 / 350 400 / 400
Balance 1708 / 1783 2374 / 2374 970 / 970
[2024-07-28] MEDS: MESTINON 150 MG PO ×2 (07:47→21:41)
[2024-07-28] MEDS: PROTONIX 40 MG PO (07:48)
[2024-07-28] MEDS: LOPRESSOR 25 MG PO ×2 (07:48→21:39)
[2024-07-28] MEDS: KCL ELIXIR 40 MEQ PO (07:49)
[2024-07-28] MEDS: MAGNESIUM OXIDE 500 MG PO ×2 (07:49→21:40)
[2024-07-28] MEDS: LOVENOX 40 MG SC (07:49)
[2024-07-28] MEDS: CELLCEPT 1000 MG PO ×2 (07:49→21:39)
[2024-07-28] MEDS: LYRICA 200 MG PO ×3 (07:49→21:43)
[2024-07-28] MEDS: LIORESAL 2.5 MG PO (07:50)
[2024-07-28 07:58] LABS: Glucose - Point of Care 186 mg/dl (70-99)
[2024-07-28] MEDS: DILAUDID 0.25 MG IV (08:04)
[2024-07-28] MEDS: NOVOLOG FLEXPEN-MODERATE RESISTANCE 300 UNITS SC (08:12)
--- NOTE | 2024-07-28 08:20 | W.PN.CD ---
Today's Communication / Plan
-
cont metoprolol tartrate 25mg bid
please call us back with additional questions
Impression / Plan
-
SVT - paroxysmal
-back in sinus with very brief episode overnight
-echo 07/27: EF 65-70%, nl RV, no sig valve disease
-cont metoprolol tartrate 25mg bid
Myasthenia gravis - acute flare.
- management per hospitalist, neurology following.
- stopped plasmapheresis due to recurrent SVT/hypotension/syncope.
HTN - stable on metoprolol
- lisinopril stopped
Physical Exam
Vital Signs/Labs
Vital Signs
Temp Pulse Resp BP Pulse Ox
98.9 F 76 9 106/66 94
07/28/24 07:23 07/28/24 07:48 07/28/24 06:00 07/28/24 07:48 07/28/24 06:00
07/27/24 07/28/24 07/29/24
06:59 06:59 06:59
Actual Weight 64.2 kg 64.2 kg
07/28/24 03:22
07/28/24 03:22
PT 14.7 Sec (11.4-14.6) H 07/28/24 03:22
INR 1.12 07/28/24 03:22
APTT 29.3 Sec (23.4-35.0) 07/28/24 03:22
Magnesium 1.6 mg/dl (1.6-2.3) 07/28/24 03:22
Triglycerides 157 mg/dl (10-149) H 07/21/24 05:38
LDL Cholesterol, Calc 17 mg/dl 07/21/24 05:38
VLDL Cholesterol, Calc 31 mg/dl (0-30) H 07/21/24 05:38
HDL Cholesterol 97 mg/dl 07/21/24 05:38
Free T4 1.52 ng/dl (0.78-2.19) 07/20/24 10:32
LAB Results
07/26/24
18:08
Troponin I 0.041 H*
Physical Exam
Constitutional: No acute distress and Comfortable
EENT: Moist mucous membranes
Cardiovascular: Rhythm & rate is regular, Pedal edema is absent, JVD pressure is normal and Systolic murmur absent
Respiratory: Respiratory effort normal and Lungs clear to auscul.
Neuro/Psych: AO x 3
Data Reviewed
-
Date of Service: July 28, 2024
EKG: Other (Tele: SR, brief SVT overnight)
Echo: Report Reviewed by me (per note)
Labs: Labs Reviewed by me
--- NOTE | 2024-07-28 08:37 | PTCARENOTE ---
recd pt handoff at bedside, resting, notes didn't sleep much overnight. assessment as noted, took am meds, oral potassium diluted in tea/cranberry juice. med for pain. refusing breakfast at this time, notes doesn't usually eat much anyway. weak.
able to barely move L knee, unable to move R. positioned for comfort. attends presently dry. K rider infusing.
--- NOTE | 2024-07-28 08:57 | W.PN.NEURO.1 ---
Today's Communication / Plan
-
Started low-dose baclofen, increase from 2.5 mg to 5 mg 3 times a day for possible muscle spasms
Neuro Assessment/Plan
Assessment
Patient with previous diagnosis of myasthenia gravis presenting to this hospital with gradually progressive weakness in bilateral lower extremities also involving bilateral upper extremities distally greater than proximally.
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 Repeated EMG study performed during this hospitalization confirms that diagnosis and suggests significant worsening.
The patient initially was declining receipt of blood based products.
Developed dysphagia noted 07/24/2024, most likely secondary to worsening of myasthenia gravis
07/24/2024, patient developed acute onset of change in mental status leading to transfer to the intensive care unit. Events seem to a followed plasma exchange however were at the same time patient was retching, suggesting a possible vasovagal event
Lumbar puncture due to the possibility of underlying infectious etiology for the patient's symptomatology 07/26/2024 was unrevealing
Goal for plasmapheresis for dysphagia was a total of 5 treatments started 07/24/2024, second event of cardiac dysfunction on 07/26/2024
Plan
Discontinue plasmapheresis due to recurrent event of cardiovascular dysfunction during 2nd event, patient now experiencing no significant dysphagia
Started low-dose baclofen, increase from 2.5 mg to 5 mg 3 times a day for possible muscle spasms
Rehabilitation evaluations and treatment
Continue vitamin B12 replacement
Advanced steroids from prednisone 35 mg daily to methylprednisolone 1 g daily x 5, first day of increased dose was 07/24/2024
Continue pyridostigmine 150 mg twice daily
Replaced gabapentin with pregabalin 200 mg 3 times a day for improved absorption and potentially better pain control on 07/26/2024
Continue mycophenolate
Provide thiamine
Consider initiation of outpatient Rozanolixizumab-ken
Outpatient evaluation for amyloidosis as cause
Will follow
Subjective/Objective
Subjective Data
Date of Service: July 28, 2024
Spasms of pain continue
Objective Data
Vital Signs
Temp Pulse Resp BP Pulse Ox
37.2 C 76 9 106/66 94
07/28/24 07:23 07/28/24 07:48 07/28/24 06:00 07/28/24 07:48 07/28/24 06:00
Lab Results
07/28/24 03:22
07/28/24 03:22
PT 14.7 Sec (11.4-14.6) H 07/28/24 03:22
INR 1.12 07/28/24 03:22
APTT 29.3 Sec (23.4-35.0) 07/28/24 03:22
Sodium 136 mmol/L (135-145) 07/28/24 03:22
Potassium 3.1 mmol/L (3.5-5.1) L 07/28/24 03:22
BUN 10 mg/dl (7-17) 07/28/24 03:22
Glucose 169 mg/dl (70-99) H 07/28/24 03:22
Calcium 7.8 mg/dl (8.4-10.2) L 07/28/24 03:22
Phosphorus 1.6 mg/dl (2.5-4.5) L 07/28/24 03:22
LDL Cholesterol, Calc 17 mg/dl 07/21/24 05:38
Patient Allergies
aspirin Allergy (Verified 07/20/24 10:01)
Unknown
oxycodone Allergy (Verified 07/20/24 10:01)
Unknown
Review of Systems
-
History Source: Patient
All other systems: Reviewed and negative
EENT: Negative Decreased Vision or Swallowing Difficulty
Respiratory: Negative Trouble Breathing
Cardiac: Negative Chest Pain
Abdomen/GI: Negative Incontinence of Stool
Genitourinary: Negative Incontinence
Musculoskeletal: Back Pain; Negative Neck Pain
Neuro: Negative Dizzy or Headache
Physical Exam
-
General: No Apparent Distress and Appears Stated Age
Eyes: Round OU, [place] Conjunctivae and No Ptosis
HEENT: Anicteric and Moist Mucous Membranes
Neck: Full Range of Motion
Respiratory: No Dyspnea
Cardiac: No JVD
Extremities: No Clubbing, No Cyanosis and Edema +1 (In bilateral hands)
Psych: Intact Judgement/Insight
Extended Neurological Exam
Mood & Affect: Anxious
Attention Span & Concentration: Awake, Alert and Interactive
Memory: Unremarkable
Tremor: Hand Tremor Absent and Head Tremor Absent
Speech: Quality Unremarkable and Quantity Unremarkable
Cranial Nerve II: Left Eye: Pupillary Size Unremarkable and Visual Schaeffer Grossly Intact
Cranial Nerve II: Right Eye: Pupillary Size Unremarkable and Visual Schaeffer Grossly Intact
Cranial Nerves III, IV, : Extraocular Movement: Grossly Intact
Cranial Nerve VII: Facial Symmetry: Normal Facial Symmetry
Cranial Nerve VIII: Hearing: Unremarkable Hearing to Normal Conversational Volume
Muscle Strength, Overall: Spontaneously Moves and Other (Minimal movement bilateral upper extremities, no movement bilateral lower extremities)
Muscle Bulk & Tone: Bulk Unremarkable and Increased Tone
Touch Sensation: Unremarkable
Gait & Station: Unable to Assess
--- NOTE | 2024-07-28 11:00 | PTCARENOTE ---
reassessed, seen by PTJelly rodgers when undisturbed.
[2024-07-28] MEDS: NOVOLOG FLEXPEN-MODERATE RESISTANCE 1 UNITS SC (12:11)
[2024-07-28 12:22] LABS: Glucose - Point of Care 183 mg/dl (70-99)
[2024-07-28 12:28] LABS: Iron 50 ug/dl (37-170)
[2024-07-28 12:37] LABS: Percent Saturation 33 % (20-50); Total Iron Binding Capacity 148 ug/dl (265-497)
[2024-07-28 12:39] LABS: Reticulocyte Count 1.4 % (0.4-2.8)
[2024-07-28 13:29] LABS: CSF VDRL (T. pallidum) Non Reactive (Non Reactive)
--- NOTE | 2024-07-28 13:47 | PTCARENOTE ---
OOB to recliner with lift device, tolerated, positioned for comfort, visiting with son, finishing up lunch.
[2024-07-28 14:11] LABS: Folate 5.1 ng/ml (2.76-20); Vitamin B12 891 pg/ml (239-931)
--- NOTE | 2024-07-28 14:24 | W.PN.ONC2 ---
Today's Communication / Plan
-
- anemia work-up
- holding PLEX
Impression
Impression
Myasthenia gravis flare-up
UTI
hyponatremia
Chronic pain syndrome with opioid dependency
hypofibrinogenemia
Plan
Plan
1st PLEX 07/24 was albumin exchange only. 2nd PLEX 07/26 2000cc albumin exchange, 3U FFP due to low fibrinogen. No further PLEX recommended per neurology. [facility] notified and cancelled remaining exchange starting 07/27. PLease reach out if PLEX
needs to be reinitiated.
fibrinogen up to 175 today. no additional cryo indicated.
new and worsening anemia during this admission. pt denies melena, BRBPR (not bad episode of hemorrhoid bleeding for several days last month that resolved).
pt does not accept blood products due to prior JW status.
check iron, B12, folate and replete if indicated. If further drop can consider epo to promote erythropoiesis.
Subjective/Objective
Chief Complaint
MG flare
Subjective
pt still with weakness, no new complaints today. labs with further down trend in hgb to 7.4 g/dl. fibrinogen stable at 175.
Vital Signs:
Vital Signs
Temp Pulse Resp BP Pulse Ox
98.9 F 60 7 124/78 98
07/28/24 07:23 07/28/24 12:00 07/28/24 12:00 07/28/24 12:00 07/28/24 12:00
Lab Results:
Laboratory Data
WBC 8.5 10^3/uL (4.8-10.8) 07/28/24 03:22
Hgb 7.4 g/dL (12.0-16.0) L 07/28/24 03:22
Plt Count 106 10^3/uL (130-400) L D 07/28/24 03:22
PT 14.7 Sec (11.4-14.6) H 07/28/24 03:22
INR 1.12 07/28/24 03:22
APTT 29.3 Sec (23.4-35.0) 07/28/24 03:22
eGFR > 60.00 07/28/24 03:22
Physical Exam
HEENT: No Jaundice
Pulmonary: Clear; No Wheezes
Extremities: No Edema
Neuro: Non Focal
Review of Systems
Review of Systems
Constitutional: Reports Fatigue; Denies Fever
Respiratory: Reports Dyspnea
Cardiovascular: Denies Chest Pain
Gastrointestinal: Reports Other (denies melena, BRBPR this admission)
Orders
Orders
Orders From Last 24 Hours
07/28/24 11:55
Add On- LAB Urgent
[2024-07-28] MEDS: LIORESAL 5 MG PO ×2 (16:13→21:44)
--- NOTE | 2024-07-28 16:27 | PTCARENOTE ---
back to bed, visitors bedside.
[2024-07-28] MEDS: NOVOLOG FLEXPEN-MODERATE RESISTANCE 3 UNITS SC (16:52)
[2024-07-28 16:54] LABS: Glucose - Point of Care 214 mg/dl (70-99)
--- NOTE | 2024-07-28 19:30 | PTCARENOTE ---
Resumed care of pt this evening. Received pt drowsy but arousable to verbal and tactile stimuli. Pt is A&Ox3. Pt has generalized weakness, can move all 4 extremities but lower extremities are significantly weaker that upper extremities. Pt is in NSR
w/PVCs, and a BBB. Pt has +1 GA, +2 edema b/l lower extremities, and pedal pulses are palpable bilaterally. Pt on RA satting at 99% pulse ox. On auscultation pt lungs sound diminished TO. Pt's abdomen is round, obese, and has active BS. Pt is
incontinent of bowel and bladder. Pt's sacral foam and heel foams are intact.
[2024-07-28] MEDS: MS CONTIN (EXTENDED RELEASE) 15 MG PO (21:43)
[2024-07-28] MEDS: SOLU-MEDROL 258 MG IV (22:00)
[2024-07-28] MEDS: LANTUS 0.07 UNITS SC (22:01)
[2024-07-28 22:10] LABS: Glucose - Point of Care 213 mg/dl (70-99)
[2024-07-29] VITALS (12 sets, daily range): BP systolic 102–156; BP diastolic 59–97; BMI 22.6
[2024-07-29 05:34] LABS: % Immature Granulocytes 0.5 % (0-0.5); % Lymphocytes 2.5 % (20.5-51.1); % Monocytes 1.6 % (1.7-9.3); % Neutrophils 95.4 % (42.2-75.2); Absolute Lymphocytes 0.2 10^3/uL (1.2-3.4); Absolute Monocytes 0.1 10^3/uL (0.1-0.6); Absolute Neutrophils 7.5 10^3/uL (1.4-6.5); Hematocrit 25.2 % (37.0-47.0); Hemoglobin 8.1 g/dL (12.0-16.0); Mean Corp Hgb Conc. 32.1 g/dL (33.0-37.0); Mean Corpuscular Hgb 28.3 pg (27.0-31.0); Mean Corpuscular Volume 88.1 fL (81.0-99.0); Nucleated Red Blood Cells % 0 %; Platelet Count 111 10^3/uL (130-400); Red Blood Cell Count 2.86 10^6/uL (4.20-5.40); Red Cell Dist. Width 14.2 % (11.5-14.5); White Blood Cell Count 7.9 10^3/uL (4.8-10.8)
[2024-07-29 05:41] LABS: Fibrinogen 206 MG/DL (199-459)
[2024-07-29] MEDS: SYNTHROID 50 MCG PO (05:50)
[2024-07-29 05:55] LABS: Blood Urea Nitrogen 12 mg/dl (7-17); Calcium 8.3 mg/dl (8.4-10.2); Carbon Dioxide 26 mmol/L (22-30); Chloride 114 mmol/L (98-107); Estimated Creatinine Clearance 59 ml/min; Glucose 200 mg/dl (70-99); Potassium 4.1 mmol/L (3.5-5.1); Sodium 137 mmol/L (135-145); eGFR > 60.00
--- NOTE | 2024-07-29 06:53 | W.PN.HOSP.TC ---
Today's Communication/Plan
-
Approaching her baseline
Resume oral prednisone
Change potassium supplement to once a day
Resume Lovenox with recovery of fibrinogen level and platelets count
Optimize diabetic control with Lantus and Premeal insulin
Transfer to telemetry, continue with PT/OT
Assessment / Plan
Assessment / Plan
Physical Exam
General: Appears chronically, not in distress,
HEENT: Normocephalic, Atraumatic, EOMI, MMM
Respiratory: Clear and limited to Auscultation bilaterally
Cardiac: Normal S1/S2,
GI: Soft, Nontender, Nondistended, Normal Bowel Sounds
Extremities: No cyanosis
Neuro: AAOX3, followed commands
Psych: calm
# SVT episode
Currently stable heart rate on beta-carmen
Echocardiogram showed LVEF 65 to 70%, no regional wall motion abnormalities, normal RV size and function, aortic sclerosis without stenosis.
Appreciate cardiology input
#Rapid response on evening of 07/26. Noted on a separate note, likely vasovagal and noticed to have SVT at same time.
- rapid response on 07/24 with syncopal episode. 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 Likely vasovagal
#Acute on Chronic pain syndrome with opioid dependency
#Recent laminectomy with w/ Rocio at [facility]
Pain is better controlled now.
She takes gabapentin, opioids at home. d/w neurology , trial of high dose Lyrica for better absorption, added Baclofen for muscle spasm.
changed to IV Dilaudid PRN, restarted oral morphine
Added laxatives
# Myasthenia gravis flare-up
She seems to be improving with resolution of dysphagia.
She started on diet, appreciate speech therapy help
Changed prednisone to IV Solu-Medrol, 1 g for 5 doses, now back on oral prednisone
Continue with pyridostigmine & CellCept
Consulted hematology for plasmapheresis. Discussed with IR, did nontunneled central line. She received 2 sessions of plasmapheresis but noticed to have post procedure complications syncope/arrhythmia/hypofibrinogenemia
Head CT negative, brain MRI neg done twice.
Appreciate hematology and neurology help
# Acute blood loss anemia with possible iron deficiency anemia
c/w oral iron
Patient does not accept blood transfusion.
No more active bleeding noted. Fibrinogen level 175
# Hypofibrinogenemia
improved post FFP 4 units & cryoprecipitate 2 units.
#History of myasthenia gravis
Follows with Dr. Hood
Home regimen: Mestinon 150 mg twice a day, prednisone to 35 mg in the morning, CellCept 1000 mg twice a day
#Acute urinary tract infection. Resolved,. Finished Tx.
Status post IV Ancef in the ER
s/p IV Rocephin, urine cultures growing Escherichia coli Klebsiella pneumonia, both susceptible to Rocephin. She received total of 5 days, discussed with ID. No need for further antibiotics
#Depression
Continue Cymbalta
# Hyponatremia, mild.
# History of dysphagia, continue with speech therapy recommendation
# Hypomagnesemia, replace
# Hypothyroidism
Continue levothyroxine, recommend repeating TSH levels in 4-6 weeks
#Essential Hypertension
better controlled.
hold ADY/ARB while undergoing pheresis, she is on metoprolol
# Type 2 diabetes
Uncontrolled due to steroid therapy
Holding Metformin
c/w ISS . Added Lantus and Pre-meal
carb controlled diet
# GERD
-PPI continued
#hyperlipidemia
DVT prophylaxis� resumed subcu Lovenox with recovery of fibrinogen level and platelet count
Full code
Total time spent to see the patient on the floor, examine the patient, review data and lab results, discuss treatment plan with patient, consultants, nursing staff around 55 minutes.
Anticipated Discharge: 24 - 48 hours
Subjective/Interval History
-
Date of Service: July 29, 2024
Feels better overall
Slept well
Leg pain is better controlled
Objective Data
-
Labs:
Laboratory Results
07/29/24
05:12
WBC 7.9
Hgb 8.1 L
Hct 25.2 L
Plt Count 111 L
Sodium 137
Potassium 4.1 D
Chloride 114 H
Carbon Dioxide 26
BUN 12
Creatinine 0.8
Glucose 200 H
Calcium 8.3 L
Vital Signs:
Vital Signs
Temp Pulse Resp BP Pulse Ox
98.3 F 74 12 150/94 100
07/29/24 05:37 07/29/24 06:00 07/29/24 06:00 07/29/24 06:00 07/29/24 04:00
I&O
07/27/24 07/28/24 07/29/24
06:59 06:59 06:59
Intake Total 2774 / 2774 970 / 970 610 / 610
Output Total 400 / 400
Balance 2374 / 2374 970 / 970 610 / 610
[2024-07-29 07:46] LABS: Glucose - Point of Care 211 mg/dl (70-99)
--- NOTE | 2024-07-29 08:52 | W.PN.NEURO.1 ---
Today's Communication / Plan
-
Started low-dose baclofen, increase again from 5 mg to 7.5 mg 3 times a day for possible muscle spasms
Return steroids to prednisone 35 mg daily from methylprednisolone 1 g daily
Attempt to lower morphine exposure
Neuro Assessment/Plan
Assessment
Patient with previous diagnosis of myasthenia gravis presenting to this hospital with gradually progressive weakness in bilateral lower extremities also involving bilateral upper extremities distally greater than proximally.
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 Repeated EMG study performed during this hospitalization confirms that diagnosis and suggests significant worsening.
The patient initially was declining receipt of blood based products.
Developed dysphagia noted 07/24/2024, most likely secondary to worsening of myasthenia gravis
07/24/2024, patient developed acute onset of change in mental status leading to transfer to the intensive care unit. Events seem to a followed plasma exchange however were at the same time patient was retching, suggesting a possible vasovagal event
Lumbar puncture due to the possibility of underlying infectious etiology for the patient's symptomatology 07/26/2024 was unrevealing
Goal for plasmapheresis for dysphagia was a total of 5 treatments started 07/24/2024, second event of cardiac dysfunction on 07/26/2024
Replaced gabapentin with pregabalin 200 mg 3 times a day for improved absorption and potentially better pain control on 07/26/2024
Advanced steroids from prednisone 35 mg daily to methylprednisolone 1 g daily x 5, first day of increased dose was 07/24/2024
Plan
Discontinue plasmapheresis due to recurrent event of cardiovascular dysfunction during 2nd event, patient now experiencing no significant dysphagia
Started low-dose baclofen, increase again from 5 mg to 7.5 mg 3 times a day for possible muscle spasms
Rehabilitation evaluations and treatment
Continue vitamin B12 replacement
Return steroids to prednisone 35 mg daily from methylprednisolone 1 g daily
Attempt to lower morphine exposure
Continue pyridostigmine 150 mg twice daily
Continue mycophenolate
Provide thiamine
Consider initiation of outpatient Rozanolixizumab-ken
Outpatient evaluation for amyloidosis as cause
Will follow peripherally
Subjective/Objective
Subjective Data
Date of Service: July 29, 2024
Improved pain control.
Objective Data
Vital Signs
Temp Pulse Resp BP Pulse Ox
37.1 C 74 12 150/94 100
07/29/24 07:21 07/29/24 06:00 07/29/24 06:00 07/29/24 06:00 07/29/24 04:00
Lab Results
07/29/24 05:12
07/29/24 05:12
PT 14.7 Sec (11.4-14.6) H 07/28/24 03:22
INR 1.12 07/28/24 03:22
APTT 29.3 Sec (23.4-35.0) 07/28/24 03:22
Sodium 137 mmol/L (135-145) 07/29/24 05:12
Potassium 4.1 mmol/L (3.5-5.1) D 07/29/24 05:12
BUN 12 mg/dl (7-17) 07/29/24 05:12
Glucose 200 mg/dl (70-99) H 07/29/24 05:12
Calcium 8.3 mg/dl (8.4-10.2) L 07/29/24 05:12
Phosphorus 1.6 mg/dl (2.5-4.5) L 07/28/24 03:22
LDL Cholesterol, Calc 17 mg/dl 07/21/24 05:38
Vitamin B12 Cancelled 07/28/24 10:52
Patient Allergies
aspirin Allergy (Verified 07/20/24 10:01)
Unknown
oxycodone Allergy (Verified 07/20/24 10:01)
Unknown
Review of Systems
-
History Source: Patient
All other systems: Reviewed and negative
Musculoskeletal: Back Pain; Negative Neck Pain
Neuro: Negative Dizzy or Headache
Physical Exam
-
General: No Apparent Distress and Appears Stated Age
Eyes: Round OU, Loving Conjunctivae and No Ptosis
HEENT: Anicteric and Moist Mucous Membranes
Neck: Full Range of Motion
Respiratory: No Dyspnea
Cardiac: No JVD
Extremities: No Clubbing, No Cyanosis and Edema +1 (In bilateral hands)
Psych: Intact Judgement/Insight
Extended Neurological Exam
Mood & Affect: Mood Unremarkable and Affect Unremarkable
Attention Span & Concentration: Awake, Alert and Interactive
Memory: Unremarkable
Tremor: Hand Tremor Absent and Head Tremor Absent
Speech: Quality Unremarkable and Quantity Unremarkable
Cranial Nerve II: Left Eye: Pupillary Size Unremarkable and Visual Schaeffer Grossly Intact
Cranial Nerve II: Right Eye: Pupillary Size Unremarkable and Visual Schaeffer Grossly Intact
Cranial Nerves III, IV, : Extraocular Movement: Grossly Intact
Cranial Nerve VII: Facial Symmetry: Normal Facial Symmetry
Cranial Nerve VIII: Hearing: Unremarkable Hearing to Normal Conversational Volume
Muscle Strength, Overall: Spontaneously Moves (all ext.) and Other (Minimal movement bilateral upper extremities, RLE 1/5 prox and distal, LLE proximal and distal 2/5)
Muscle Bulk & Tone: Bulk Unremarkable
Pronator Drift: Unable to Assess
Touch Sensation: Unremarkable
Gait & Station: Unable to Assess
Past History
Past History
ED Past Medical History: Cancer (Breast hyperplasia), HTN, Hypercholesterolemia, NIDDM, Hypothyroidism and Other (Myasthenia gravis)
ED Past Surgical History: Bowel resection, Gynecological (Tubal ligation), Orthopedic (Knee replacement, hip replacement) and Other (Lumbar laminectomy, left breast nipple exploration and excision of central duct)
Social History
Tobacco: Non-smoker
Drug: None
Family History
Family History: Other (reviewed and non-contributory)
Medications
-
Medications:
Generic Name Dose Route Start Last Admin
Trade Name Freq PRN Reason Stop Dose Admin
Acetaminophen 650 mg 07/20/24 13:23
Acetaminophen 650 Mg Rectal Suppository RECTAL 08/17/24 13:22
Q4HPRN PRN
MORRIS, mild pain, or temp >100.4F
Acetaminophen 650 mg 07/27/24 06:54
Acetaminophen 325 Mg Tablet PO 08/17/24 13:22
Q4HPRN PRN
MORRIS, mild pain, or temp >100.4F
Baclofen 5 mg 07/28/24 09:12 07/28/24 21:44
Baclofen 5 Mg Tablet PO 08/24/24 15:59 5 mg
TID JESSIE Administration
Dextrose 12.5 grams 07/20/24 13:23
Dextrose 50% (0.5 Grams/Ml) 50 Ml Syringe IV 08/17/24 13:22
[id number] PRN
hypoglycemia
Protocol
Enoxaparin Sodium 40 mg 07/21/24 08:00 07/28/24 07:49
Enoxaparin Sodium 40 Mg/0.4 Ml Syringe SC 08/18/24 07:59 40 mg
DAILY JESSIE Administration
Ferrous Sulfate 325 mg 07/29/24 08:00
Ferrous Sulfate 325 Mg Tablet PO 08/26/24 07:59
DAILY JESSIE
Glucagon 1 mg 07/20/24 13:23
Glucagon 1 Mg Vial IM 08/17/24 13:22
PRN PRN
hypoglycemia
Protocol
Hydromorphone HCl 0.5 mg 07/28/24 10:21 07/28/24 23:10
Hydromorphone 0.5 Mg/0.5 Ml Syringe IV 08/11/24 10:20 0.5 mg
Q3HPRN PRN Administration
breakthrough pain
Insulin Glargine 7 units/ 0.07 mls @ 0 mls/hr 07/26/24 20:00 07/28/24 22:01
Device SC 08/23/24 19:59 0.07 mls
HS JESSIE Administration
As Directed
Insulin Aspart 0 units 07/26/24 16:30 07/28/24 16:52
Insulin Aspart Moderate Resistance 300 Units/3 Ml Pen.Injctr SC 08/23/24 16:29 3 units
AC JESSIE Administration
Protocol
Levothyroxine Sodium 50 mcg 07/27/24 06:54 07/29/24 05:50
Levothyroxine 50 Mcg Tablet PO 08/22/24 05:59 50 mcg
DAILY @ 0600 JESSIE Administration
Magnesium Oxide 500 mg 07/26/24 20:00 07/28/24 21:40
Magnesium Oxide 500 Mg Tablet PO 08/23/24 19:59 500 mg
BID JESSIE Administration
Metoprolol Tartrate 25 mg 07/27/24 08:00 07/28/24 21:39
Metoprolol 25 Mg Regular Release Tablet PO 08/24/24 07:59 25 mg
BID JESSIE Administration
Morphine Sulfate 15 mg 07/28/24 20:00 07/28/24 21:43
Morphine 15 Mg Extended Release Tablet PO 08/11/24 19:59 15 mg
Q12 JESSIE Administration
Mycophenolate Mofetil 1,000 mg 07/26/24 20:00 07/28/24 21:39
Mycophenolate 500 Mg Tablet PO 08/23/24 19:59 1,000 mg
BID JESSIE Administration
Ondansetron HCl 4 mg 07/25/24 09:29 07/25/24 15:18
Ondansetron 4 Mg/2 Ml Vial IV 08/22/24 09:28 4 mg
Q6HPRN PRN Administration
NAUSEA/VOMITING
Pantoprazole Sodium 40 mg 07/27/24 08:00 07/28/24 07:48
Pantoprazole 40 Mg Delayed Release Tablet PO 08/24/24 07:59 40 mg
DAILY JESSIE Administration
Potassium Chloride 40 meq 07/28/24 08:00 07/28/24 07:49
Potassium Chloride 10% Oral Solution (40 Meq/30 Ml) Cup PO 08/25/24 07:59 40 meq
DAILY JESSIE Administration
Prednisone 30 mg/ Prednisone 5 35 mg 07/21/24 08:00 07/24/24 09:19
mg PO 08/18/24 07:59 Not Given
DAILY JESSIE
Pregabalin 200 mg 07/27/24 06:54 07/28/24 21:43
Pregabalin 100 Mg Capsule PO 08/23/24 15:59 200 mg
TID JESSIE Administration
Pyridostigmine [place] 150 mg 07/27/24 06:54 07/28/24 21:41
Pyridostigmine 60 Mg Tablet PO 08/21/24 11:36 150 mg
BID JESSIE Administration
Sodium Chloride 0 flush 07/20/24 14:00 07/27/24 22:14
Sodium Chloride 0.9% (Flush) Syringe IV 08/17/24 13:59 2 flush
PER PROTOCOL JESSIE Administration
[2024-07-29] MEDS: NOVOLOG FLEXPEN-MODERATE RESISTANCE 3 UNITS SC ×2 (09:06→12:39)
[2024-07-29] MEDS: LOVENOX 40 MG SC (09:14)
[2024-07-29] MEDS: LOPRESSOR 25 MG PO ×2 (09:15→21:28)
[2024-07-29] MEDS: KCL ELIXIR 40 MEQ PO (09:15)
[2024-07-29] MEDS: LYRICA 200 MG PO ×3 (09:15→21:30)
[2024-07-29] MEDS: MAGNESIUM OXIDE 500 MG PO ×2 (09:15→21:29)
[2024-07-29] MEDS: MS CONTIN (EXTENDED RELEASE) 15 MG PO ×2 (09:15→21:29)
[2024-07-29] MEDS: PROTONIX 40 MG PO (09:15)
[2024-07-29] MEDS: CELLCEPT 1000 MG PO ×2 (09:15→21:29)
[2024-07-29] MEDS: FEOSOL 325 MG PO (09:15)
[2024-07-29] MEDS: MESTINON 150 MG PO ×2 (09:15→21:26)
[2024-07-29] MEDS: LIORESAL 5 MG PO (09:17)
[2024-07-29] MEDS: LANTUS 0.15 UNITS SC (09:21)
[2024-07-29 12:14] LABS: Glucose - Point of Care 240 mg/dl (70-99)
[2024-07-29] MEDS: LIORESAL 7.5 MG PO ×2 (16:15→21:27)
[2024-07-29] MEDS: DILAUDID 0.5 MG IV ×2 (16:22→22:07)
[2024-07-29 16:27] LABS: Glucose - Point of Care 220 mg/dl (70-99)
--- NOTE | 2024-07-29 18:23 | PTCARENOTE ---
Transfer to [facility] via bed . Report given prior to transfer. 16:00 medications administered prior to transfer. Accu check at 16:00 220 Patient order dinner covered will be provided per sliding scale on 4W
[2024-07-29] MEDS: NOVOLOG FLEXPEN-MODERATE RESISTANCE 300 UNITS SC (18:34)
[2024-07-29 21:34] LABS: Glucose - Point of Care 201 mg/dl (70-99)
[2024-07-29] MEDS: LANTUS SC (21:40)
[2024-07-30 03:30] VITALS: BP 155/93
[2024-07-30] MEDS: SYNTHROID 50 MCG PO (05:42)
[2024-07-30 07:25] LABS: Glucose - Point of Care 149 mg/dl (70-99)
[2024-07-30 07:52] VITALS: BP 143/86
[2024-07-30] MEDS: DELTASONE 35 MG PO (08:14)
[2024-07-30] MEDS: CELLCEPT 1000 MG PO ×2 (08:14→20:02)
[2024-07-30] MEDS: LOVENOX 40 MG SC (08:14)
[2024-07-30] MEDS: LYRICA 200 MG PO ×3 (08:14→21:45)
[2024-07-30] MEDS: MESTINON 150 MG PO ×2 (08:15→20:00)
[2024-07-30] MEDS: PROTONIX 40 MG PO (08:16)
[2024-07-30] MEDS: FEOSOL 325 MG PO (08:16)
[2024-07-30] MEDS: LIORESAL 7.5 MG PO ×2 (08:18→19:59)
[2024-07-30] MEDS: MS CONTIN (EXTENDED RELEASE) PO ×2 (08:19→08:51)
[2024-07-30] MEDS: KCL ELIXIR 40 MEQ PO (08:19)
[2024-07-30] MEDS: ZESTRIL 10 MG PO (08:20)
[2024-07-30] MEDS: LOPRESSOR 25 MG PO ×2 (08:20→20:03)
[2024-07-30] MEDS: MAGNESIUM OXIDE 500 MG PO ×2 (08:20→20:00)
[2024-07-30] MEDS: NOVOLOG FLEXPEN-MODERATE RESISTANCE SC ×3 (08:22→16:00)
[2024-07-30] MEDS: LANTUS 0.15 UNITS SC (08:24)
[2024-07-30] MEDS: DILAUDID 0.5 MG IV (08:46)
[2024-07-30 09:50] LABS: % Basophils 0.1 % (0-2); % Immature Granulocytes 0.7 % (0-0.5); % Lymphocytes 2.6 % (20.5-51.1); % Monocytes 4.4 % (1.7-9.3); % Neutrophils 92.2 % (42.2-75.2); Absolute Immature Granulocytes 0.1 10^3/uL (0-0.05); Absolute Lymphocytes 0.4 10^3/uL (1.2-3.4); Absolute Monocytes 0.6 10^3/uL (0.1-0.6); Absolute Neutrophils 12.4 10^3/uL (1.4-6.5); Hematocrit 25.9 % (37.0-47.0); Hemoglobin 8.5 g/dL (12.0-16.0); Mean Corp Hgb Conc. 32.8 g/dL (33.0-37.0); Mean Corpuscular Hgb 28.5 pg (27.0-31.0); Mean Corpuscular Volume 86.9 fL (81.0-99.0); Mean Platelet Volume 9.8 fL (7.4-10.4); Nucleated Red Blood Cells % 0.1 %; Platelet Count 128 10^3/uL (130-400); Red Blood Cell Count 2.98 10^6/uL (4.20-5.40); Red Cell Dist. Width 14.5 % (11.5-14.5); White Blood Cell Count 13.5 10^3/uL (4.8-10.8)
[2024-07-30 10:16] LABS: C-Reactive Protein < 5.00 mg/L (0.0-10.00)
[2024-07-30 10:28] LABS: Erythrocyte Sed Rate 7 mm/hour (0-20)
--- NOTE | 2024-07-30 11:05 | W.PN.NEURO.1 ---
Today's Communication / Plan
-
.
Subjective/Objective
Subjective Data
Date of Service: July 30, 2024
Neurology follow-up note
HPI: This is a 74-year-old immunocompromised woman who presented to [facility] on 07/20/2024 with worsening of pain and leg weakness.
Ms. Farmer has history of seropositive thymoma negative generalized myasthenia gravis with initial presentation of head drop since 2021.
She reports being unable to walk since at least 2023 when she was working with a therapist and using a walker. Prior to hospitalization, she was only able to transfer to a wheelchair using a board. The patient was brought to the hospital due to
severe pain in her legs, prompting her daughter to call 911.
Recently ago reports dysphagia with both solids and liquids, which developed this year. The patient has experienced 50 pound weight loss since 2019. The patient describes progressive proximal muscle weakness over the past year, particularly
affecting her arms. She notes difficulty manipulating objects with her hands and reports that items have been falling from her grasp. The right side is reported to be more affected than the left. She reports receiving IVIG last month.
I have spoken to Dr. Hood who confirmed patient's compliance with CellCept. Medical records have been requested and will be faxed to [phone].
PDMP: Gabapentin 300 Mg 90 capsules filled in on 06/07/2024, Hydrocodone-Acetamin 5-325 Mg 45 tablets filled in on 04/10/2025, 60 tablets filled in on 03/21/2024
Labs: UA�culture (07/20/2024,�positive for E. coli, Klebsiella pneumonia)
CSF(07/25/2024) acellular, glucose�105, protein�159, cytology�rare small lymphocytes, no overt evidence of neoplastic or infectious process.
Brain MRI without tressa (07/21/2024)�unremarkable for age.
Pelvic MRI wo tressa(11/15/2023)�symmetric thickening and hyperintense T2 signal of the right sciatic nerve from its origin in the lumbosacral plexus to the proximal thigh most suggestive of neuropathy.
Moderate spinal canal stenosis at L4-L5.
Indeterminate lesion in the S1 sacral segment, potentially an atypical hemangioma.
NCS/EMG of BL LEs and LUE(07/23/2024, unsure if warm study) showed evidence of axonal and demyelinating polyneuropathy affecting upper and lower extremities with active denervation in the left L5 distribution, bilateral medial gastrocnemius muscles,
and the right FCU muscle as well as diffuse neuropathic changes.
Labs: Hemoglobin A1c�7.3, normal CRP
MAR: Hydromorphone 0.5 mg given at 08:46 am, Thiamine 100 mg given on 07/23/24 at 20:00.
Mr. Ruiz has been on level 6 soft and bite-size diet with thin liquids.
PMH: Generalized myasthenia gravis, DM, DLP, GERD, sclerosing intraductal papilloma, osteoporosis, hypothyroidism, ambulatory dysfunction, sacral decubitus
PSH: Lumbar laminectomy, R IJ catheter placement(07/24/2024) R BELL,
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
FH: Not contributory.
All: Aspirin, oxycodone
ROS: Constitutional: Negative. Negative for chills, fever and unexpected weight change.
HENT: Negative for diplopia, ptosis
Eyes: Negative. Negative for photophobia, pain and visual disturbance.
Respiratory: Negative for dyspnea
Cardiovascular: Negative for chest pain, palpitations and leg swelling.
Gastrointestinal: Positive for dysphagia, constipation
Endocrine: Negative. Negative for cold intolerance.
Genitourinary: Positive for chronic urinary incontinence
Musculoskeletal: Positive for leg pain
Skin: Negative for rash.
Allergic/Immunologic: Negative. Negative for immunocompromised state.
Neurological: Positive for proximal upper and lower extremity weakness, negative for dysarthria
Psychiatric/Behavioral: Positive for confusion
General: Well developed. In no acute distress.
Cardio: Regular rate and rhythm without murmur. Extremities are without cyanosis or edema.
Neuro:
Mental Status: Lethargic, requires constant stimulation to stay awake. Oriented to self, place, year. Follows simple requests. Nonfluent.
Cranial Nerves: Pupils are equally round and reactive to light. EOMs full. Visual knight full to confrontation. No ptosis. No nystagmus. V1-V3 intact to light touch and pinprick bilaterally, symmetric. Face symmetric. Normal hearing AU. The
palate elevated well. SCMs and traps 5/5. Tongue midline. No dysarthria.
Motor: Bilateral upper and lower proximal muscle atrophy and weakness.
Reflexes: Areflexic.
Sensory: Absent vibration at the toes and ankles. Preserved at the knees
Coordination: No dysmetria or tremor.
Gait: deferred
Assessment and Plan:
I. 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
II. Generalized myasthenia gravis
III. Multifactorial encephalopathy (toxic, infectious)
IV. Moderate L4-L5 central spinal stenosis, right L5 radiculopathy with ongoing denervation
V. Thrombocytopenia
. Hypomagnesemia
VII. Chronic pain syndrome
-Aspiration precautions
-Polyneuropathy blood work
-Avoid opioids
-Will review medical records from patient's neurologist
-PT
-Pelvic pelvic/LS plexus MRI w/wo tressa
-LE venous US
-Continue prednisone 35 mg every morning and Mestinon 90 mg in the morning, afternoon and 60 mg nightly.
-Consider increasing Cymbalta to 80 mg once a day if no QTc abnormalities on repeat EKG at present.
-Will obtain collateral's history from patient's daughter
I personally reviewed all radiology and labs along with past medical records pertinent to current medical problems. Total time spent in patient care is 65 minutes.
Thank you for allowing us to participate in the care of this patient. We will continue to follow. Please do not hesitate to contact us with any questions or concerns.
Objective Data
Vital Signs
Temp Pulse Resp BP Pulse Ox
36.9 C 66 20 143/86 99
07/30/24 07:52 07/30/24 08:20 07/30/24 07:52 07/30/24 08:20 07/30/24 07:52
Lab Results
07/30/24 09:41
PT 14.7 Sec (11.4-14.6) H 07/28/24 03:22
INR 1.12 07/28/24 03:22
APTT 29.3 Sec (23.4-35.0) 07/28/24 03:22
Sodium 137 mmol/L (135-145) 07/29/24 05:12
Potassium 4.1 mmol/L (3.5-5.1) D 07/29/24 05:12
BUN 12 mg/dl (7-17) 07/29/24 05:12
Glucose 200 mg/dl (70-99) H 07/29/24 05:12
Calcium 8.3 mg/dl (8.4-10.2) L 07/29/24 05:12
Phosphorus 1.6 mg/dl (2.5-4.5) L 07/28/24 03:22
LDL Cholesterol, Calc 17 mg/dl 07/21/24 05:38
Vitamin B12 Cancelled 07/28/24 10:52
Patient Allergies
aspirin Allergy (Verified 07/20/24 10:01)
Unknown
oxycodone Allergy (Verified 07/20/24 10:01)
Unknown
[2024-07-30 11:09] VITALS: BP 140/65
[2024-07-30 12:15] LABS: Glucose - Point of Care 136 mg/dl (70-99)
--- NOTE | 2024-07-30 12:20 | CM ---
CM reviewed chart, received call from patients daughter regarding patient discharge status, daughter concerned patient does not have enough space in room to work with therapy. CM reports patient is in a shared room, PT/OT continue to work with
patients in shared room. Daughter asking if patient can discharge to rehab as soon as possible, not paying for bed hold, told through facility patient will be able to return. Per Hospitalist, likely 24-48 hrs. CM will update [facility] on discharge
status. CM will continue to follow for all discharge planning needs.
Plan; return to [facility] when stable pending bed availability.
[2024-07-30 13:29] LABS: Blood Urea Nitrogen 13 mg/dl (7-17); Calcium 8.2 mg/dl (8.4-10.2); Carbon Dioxide 27 mmol/L (22-30); Chloride 113 mmol/L (98-107); Creatine Phosphokinase < 20 U/L (30-135); Estimated Creatinine Clearance 59 ml/min; Glucose 139 mg/dl (70-99); Potassium 4.4 mmol/L (3.5-5.1); Sodium 136 mmol/L (135-145); eGFR > 60.00
--- NOTE | 2024-07-30 14:13 | W.PN.HOSP.TC ---
Today's Communication/Plan
-
add back dilaudid po in an effort to wean iv pain meds
neuro, onc recs
Assessment / Plan
Assessment / Plan
Physical Exam
General: Appears chronically, not in distress,
HEENT: Normocephalic, Atraumatic, EOMI, MMM
Respiratory: Clear and limited to Auscultation bilaterally
Cardiac: Normal S1/S2,
GI: Soft, Nontender, Nondistended, Normal Bowel Sounds
Extremities: No cyanosis
Neuro: AAOX3, followed commands
Psych: calm
# SVT episode
Currently stable heart rate on beta-carmen
Echocardiogram showed LVEF 65 to 70%, no regional wall motion abnormalities, normal RV size and function, aortic sclerosis without stenosis.
Appreciate cardiology input
#Rapid response on evening of 07/26. Noted on a separate note, likely vasovagal and noticed to have SVT at same time.
- rapid response on 07/24 with syncopal episode. Workup did not show findings of acute stroke/[employer] infection/seizure. Likely vasovagal
#B/l pleural Effusion
-will avoid lasix at this time due to plasmapharesis and hypotension
-on RA, no respiratory issues
#Acute on Chronic pain syndrome with opioid dependency
#Recent laminectomy with w/ Rocio at [facility]
Pain is better controlled now.
She takes gabapentin, opioids at home. d/w neurology , trial of high dose Lyrica for better absorption, added Baclofen for muscle spasm.
changed to IV Dilaudid PRN, restarted oral morphine
-restart po dilaudid in effort to reduce iv pain meds
Added laxatives
# Myasthenia gravis flare-up
She seems to be improving with resolution of dysphagia.
She started on diet, appreciate speech therapy help
Changed prednisone to IV Solu-Medrol, 1 g for 5 doses, now back on oral prednisone
Continue with pyridostigmine & CellCept
Consulted hematology for plasmapheresis. Discussed with IR, did nontunneled central line. She received 2 sessions of plasmapheresis but noticed to have post procedure complications syncope/arrhythmia/hypofibrinogenemia
Head CT negative, brain MRI neg done twice.
Appreciate hematology and neurology help
# Acute blood loss anemia with possible iron deficiency anemia
c/w oral iron
Patient does not accept blood transfusion.
No more active bleeding noted. Fibrinogen level 175
# Hypofibrinogenemia
improved post FFP 4 units & cryoprecipitate 2 units.
#History of myasthenia gravis
Follows with Dr. Hood
Home regimen: Mestinon 150 mg twice a day, prednisone to 35 mg in the morning, CellCept 1000 mg twice a day
#Acute urinary tract infection. Resolved,. Finished Tx.
Status post IV Ancef in the ER
s/p IV Rocephin, urine cultures growing Escherichia coli Klebsiella pneumonia, both susceptible to Rocephin. She received total of 5 days, discussed with ID. No need for further antibiotics
#Depression
Continue Cymbalta
# Hyponatremia, mild.
# History of dysphagia, continue with speech therapy recommendation
# Hypomagnesemia, replace
# Hypothyroidism
Continue levothyroxine, recommend repeating TSH levels in 4-6 weeks
#Essential Hypertension
better controlled.
hold ADY/ARB while undergoing pheresis, she is on metoprolol
# Type 2 diabetes
Uncontrolled due to steroid therapy
Holding Metformin
c/w ISS . Added Lantus and Pre-meal
carb controlled diet
# GERD
-PPI continued
#hyperlipidemia
DVT prophylaxis� resumed subcu Lovenox with recovery of fibrinogen level and platelet count
Full code
Total time spent to see the patient on the floor, examine the patient, review data and lab results, discuss treatment plan with patient, consultants, nursing staff around 56 minutes.
Anticipated Discharge: 24 - 48 hours
Subjective/Interval History
-
Date of Service: July 30, 2024
Still with sharp shooting pain intermittently
Objective Data
-
Labs:
Laboratory Results
07/30/24
09:41
WBC 13.5 H
Hgb 8.5 L
Hct 25.9 L
Plt Count 128 L
Sodium 136
Potassium 4.4
Chloride 113 H
Carbon Dioxide 27
BUN 13
Creatinine 0.8
Glucose 139 H
Calcium 8.2 L
Vital Signs:
Vital Signs
Temp Pulse Resp BP Pulse Ox
98.3 F 75 20 140/65 96
07/30/24 11:09 07/30/24 11:09 07/30/24 11:09 07/30/24 11:09 07/30/24 11:09
I&O
07/29/24 07/30/24 07/31/24
06:59 06:59 06:59
Intake Total 610 / 610 240 / 240
Balance 610 / 610 240 / 240
Review of Systems
-
History Source: Patient
All other systems: Not reviewed unless documented
Data Reviewed
-
Diagnostic Radiology: Report Reviewed by me
MRI: Report Reviewed by me
Labs: Labs Reviewed by me
[2024-07-30 15:15] VITALS: BP 132/79
--- NOTE | 2024-07-30 15:29 | W.PN.ONC2 ---
Today's Communication / Plan
-
.
Impression
Impression
Myasthenia gravis flare-up
UTI
hyponatremia
Chronic pain syndrome with opioid dependency
hypofibrinogenemia / PLEX-resolved
acute anemia
Plan
Plan
1st PLEX 07/24 was albumin exchange only. 2nd PLEX 07/26 2000cc albumin exchange, 3U FFP due to low fibrinogen. No further PLEX recommended per neurology. [facility] notified and cancelled remaining exchange starting 07/27. PLease reach out if PLEX
needs to be reinitiated.
new and worsening anemia during this admission. pt denies melena, BRBPR (not bad episode of hemorrhoid bleeding for several days last month that resolved).
pt does not accept PRBC products due to prior JW status.
No indication for B12, folate, or iron repletion at this time.
If further Hgb drop can consider epo to promote erythropoiesis.
Subjective/Objective
Subjective
Hgb stable 8.5g/dL
plts improved to 128,000
fibrinogen normal
deneis bleeding
Vital Signs:
Vital Signs
Temp Pulse Resp BP Pulse Ox
98.2 F 58 18 132/79 98
07/30/24 15:15 07/30/24 15:15 07/30/24 15:15 07/30/24 15:15 07/30/24 15:15
Lab Results:
Laboratory Data
WBC 13.5 10^3/uL (4.8-10.8) H 07/30/24 09:41
Hgb 8.5 g/dL (12.0-16.0) L 07/30/24 09:41
Plt Count 128 10^3/uL (130-400) L 07/30/24 09:41
PT 14.7 Sec (11.4-14.6) H 07/28/24 03:22
INR 1.12 07/28/24 03:22
APTT 29.3 Sec (23.4-35.0) 07/28/24 03:22
eGFR > 60.00 07/30/24 09:41
Physical Exam
HEENT: No Jaundice
Pulmonary: Clear; No Wheezes
Extremities: No Edema
Neuro: Non Focal
Orders
Orders
Orders From Last 24 Hours
07/30/24 08:00
Albumin Human 5% 250 ml [Albumin 5%] 12.5 grams in 250 ml INTRACATH 1,375 mls/hr
Calcium Gluconate [Calcium Gluconate 10% Injection] 2,700 mg 0.9% Sodium Chloride 250 ml [Nss] 250 ml IV ONCE
07/30/24 09:41
BMP [Basic Metabolic Panel] IN AM
CBC/With Diff [Complete Blood Count/With Diff] IN AM
Creatine Phosphokinase Routine
Erythrocyte Sed Rate Routine
07/31/24 06:00
BMP [Basic Metabolic Panel] IN AM
CBC/With Diff [Complete Blood Count/With Diff] IN AM
08/01/24 06:00
BMP [Basic Metabolic Panel] IN AM
CBC/With Diff [Complete Blood Count/With Diff] IN AM
08/01/24 08:00
Albumin Human 5% 250 ml [Albumin 5%] 12.5 grams in 250 ml INTRACATH 1,375 mls/hr
Calcium Gluconate [Calcium Gluconate 10% Injection] 2,700 mg 0.9% Sodium Chloride 250 ml [Nss] 250 ml IV ONCE
08/02/24 06:00
BMP [Basic Metabolic Panel] IN AM
CBC/With Diff [Complete Blood Count/With Diff] IN AM
08/03/24 06:00
BMP [Basic Metabolic Panel] IN AM
CBC/With Diff [Complete Blood Count/With Diff] IN AM
[2024-07-30 15:46] LABS: Glucose - Point of Care 132 mg/dl (70-99)
[2024-07-30] MEDS: LIORESAL PO (16:08)
[2024-07-30] MEDS: MS CONTIN (EXTENDED RELEASE) 15 MG PO (20:00)
[2024-07-30 20:50] VITALS: BP 123/85
[2024-07-30 21:52] LABS: Glucose - Point of Care 107 mg/dl (70-99)
[2024-07-30 22:00] VITALS: BP 127/80
[2024-07-30] MEDS: LANTUS SC (22:18)
[2024-07-30] MEDS: DILAUDID 2 MG PO (23:29)
[2024-07-31 03:35] VITALS: BP 144/76
[2024-07-31] MEDS: SYNTHROID 50 MCG PO (05:54)
[2024-07-31 07:19] LABS: Angiotensin-1-converting Enzym <10 U/L (16-85)
[2024-07-31 07:27] VITALS: BP 119/77
[2024-07-31 07:32] LABS: Hematocrit 30.2 % (37.0-47.0); Hemoglobin 9.9 g/dL (12.0-16.0); Mean Corp Hgb Conc. 32.8 g/dL (33.0-37.0); Mean Corpuscular Hgb 28.7 pg (27.0-31.0); Mean Corpuscular Volume 87.5 fL (81.0-99.0); Red Blood Cell Count 3.45 10^6/uL (4.20-5.40); Red Cell Dist. Width 14.5 % (11.5-14.5); White Blood Cell Count 9.7 10^3/uL (4.8-10.8)
[2024-07-31 07:38] LABS: Glucose - Point of Care 64 mg/dl (70-99)
[2024-07-31 07:41] LABS: ALT (SGPT) 23 U/L (0-35); AST (SGOT) 29 U/L (14-36); Albumin 2.8 g/dl (3.5-5.0); Alkaline Phosphatase 54 U/L (38-126); Blood Urea Nitrogen 14 mg/dl (7-17); Calcium 8.5 mg/dl (8.4-10.2); Carbon Dioxide 25 mmol/L (22-30); Chloride 113 mmol/L (98-107); Estimated Creatinine Clearance 79 ml/min; Glucose 57 mg/dl (70-99); Potassium 4.1 mmol/L (3.5-5.1); Sodium 137 mmol/L (135-145); Total Bilirubin 0.5 mg/dl (0.2-1.3); Total Protein 4.6 g/dl (6.3-8.2); eGFR > 60.00
[2024-07-31 07:44] LABS: Mean Platelet Volume 10.1 fL (7.4-10.4); Platelet Count 87 10^3/uL (130-400)
[2024-07-31] MEDS: LANTUS SC (08:00)
--- NOTE | 2024-07-31 08:20 | W.PN.ONC2 ---
Today's Communication / Plan
-
.
Impression
Impression
Myasthenia gravis flare
UTI
hyponatremia
Chronic pain syndrome with opioid dependency
hypofibrinogenemia / PLEX-resolved
acute anemia -stable
acute thrombocytopenia stable
Plan
Plan
1st PLEX 07/24 was albumin exchange only. 2nd PLEX 07/26 2000cc albumin exchange, 3U FFP due to low fibrinogen. No further PLEX recommended per neurology. red cross notified and cancelled remaining exchange starting 07/27. PLease reach out if PLEX
needs to be reinitiated.
new and worsening anemia during this admission. pt denies melena, BRBPR (not bad episode of hemorrhoid bleeding for several days last month that resolved).
pt does not accept PRBC products due to prior JW status.
No indication for B12, folate, or iron repletion at this time.
daily CBC
Subjective/Objective
Subjective
no new complaints
Vital Signs:
Vital Signs
Temp Pulse Resp BP Pulse Ox
97.9 F 75 20 119/77 98
07/31/24 07:27 07/31/24 07:27 07/31/24 07:27 07/31/24 07:27 07/31/24 07:27
Lab Results:
Laboratory Data
WBC 9.7 10^3/uL (4.8-10.8) 07/31/24 07:03
Hgb 9.9 g/dL (12.0-16.0) L 07/31/24 07:03
Plt Count 87 10^3/uL (130-400) L D 07/31/24 07:03
PT 14.7 Sec (11.4-14.6) H 07/28/24 03:22
INR 1.12 07/28/24 03:22
APTT 29.3 Sec (23.4-35.0) 07/28/24 03:22
eGFR > 60.00 07/31/24 07:03
Orders
Orders
Orders From Last 24 Hours
07/30/24 08:00
Albumin Human 5% 250 ml [Albumin 5%] 12.5 grams in 250 ml INTRACATH 1,375 mls/hr
Calcium Gluconate [Calcium Gluconate 10% Injection] 2,700 mg 0.9% Sodium Chloride 250 ml [Nss] 250 ml IV ONCE
07/30/24 09:41
BMP [Basic Metabolic Panel] IN AM
CBC/With Diff [Complete Blood Count/With Diff] IN AM
Creatine Phosphokinase Routine
Erythrocyte Sed Rate Routine
08/01/24 06:00
BMP [Basic Metabolic Panel] IN AM
CBC/With Diff [Complete Blood Count/With Diff] IN AM
08/01/24 08:00
Albumin Human 5% 250 ml [Albumin 5%] 12.5 grams in 250 ml INTRACATH 1,375 mls/hr
Calcium Gluconate [Calcium Gluconate 10% Injection] 2,700 mg 0.9% Sodium Chloride 250 ml [Nss] 250 ml IV ONCE
08/02/24 06:00
BMP [Basic Metabolic Panel] IN AM
CBC/With Diff [Complete Blood Count/With Diff] IN AM
08/03/24 06:00
BMP [Basic Metabolic Panel] IN AM
CBC/With Diff [Complete Blood Count/With Diff] IN AM
[2024-07-31] MEDS: NOVOLOG FLEXPEN-MODERATE RESISTANCE SC ×3 (08:31→16:24)
[2024-07-31] MEDS: LIORESAL 7.5 MG PO (08:34)
[2024-07-31] MEDS: KCL ELIXIR 40 MEQ PO (08:35)
[2024-07-31] MEDS: LOPRESSOR 25 MG PO ×2 (08:35→20:46)
[2024-07-31] MEDS: FEOSOL 325 MG PO (08:36)
[2024-07-31] MEDS: MESTINON 150 MG PO ×2 (08:36→20:46)
[2024-07-31] MEDS: ZESTRIL 10 MG PO (08:36)
[2024-07-31] MEDS: DELTASONE 35 MG PO (08:36)
[2024-07-31] MEDS: CELLCEPT 1000 MG PO ×2 (08:37→20:50)
[2024-07-31] MEDS: LYRICA 200 MG PO (08:37)
[2024-07-31] MEDS: LOVENOX 40 MG SC (08:37)
[2024-07-31] MEDS: PROTONIX 40 MG PO (08:37)
[2024-07-31] MEDS: MS CONTIN (EXTENDED RELEASE) 15 MG PO ×2 (08:37→20:46)
[2024-07-31] MEDS: MAGNESIUM OXIDE 500 MG PO ×2 (08:37→20:46)
[2024-07-31 09:07] LABS: Glucose - Point of Care 110 mg/dl (70-99)
--- NOTE | 2024-07-31 09:43 | CM ---
Addendum entered by Glory Horn 07/31/24 15:21:
CM spoke with patients daughter, inquiring about patient discharge. CM discussed at this time no discharge order placed, patient is not stable for d/c at this time. CM did speak with Marisela from [facility], can accept patient upon discharge. CM will
keep patients daughter updated when ready for d/c.
Original Note:
CM reviewed chart, spoke with Marisela from [facility]- able to accept patient when ready for discharge. Updated clinicals/dietary note sent through [facility]. CM will continue to follow for all discharge planning needs.
Plan; [facility] when stable
--- NOTE | 2024-07-31 10:59 | W.PN.NEURO.1 ---
Today's Communication / Plan
-
.
Neuro Assessment/Plan
Assessment
Patient with previous diagnosis of myasthenia gravis presenting to this hospital with gradually progressive weakness in bilateral lower extremities also involving bilateral upper extremities distally greater than proximally.
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 Repeated EMG study performed during this hospitalization confirms that diagnosis and suggests significant worsening.
The patient initially was declining receipt of blood based products.
Developed dysphagia noted 07/24/2024, most likely secondary to worsening of myasthenia gravis
07/24/2024, patient developed acute onset of change in mental status leading to transfer to the intensive care unit. Events seem to a followed plasma exchange however were at the same time patient was retching, suggesting a possible vasovagal event
Lumbar puncture due to the possibility of underlying infectious etiology for the patient's symptomatology 07/26/2024 was unrevealing
Goal for plasmapheresis for dysphagia was a total of 5 treatments started 07/24/2024, second event of cardiac dysfunction on 07/26/2024
Replaced gabapentin with pregabalin 200 mg 3 times a day for improved absorption and potentially better pain control on 07/26/2024
Advanced steroids from prednisone 35 mg daily to methylprednisolone 1 g daily x 5, first day of increased dose was 07/24/2024
Plan
Discontinue plasmapheresis due to recurrent event of cardiovascular dysfunction during 2nd event, patient now experiencing no significant dysphagia
Started low-dose baclofen, increase again from 5 mg to 7.5 mg 3 times a day for possible muscle spasms
Rehabilitation evaluations and treatment
Continue vitamin B12 replacement
Return steroids to prednisone 35 mg daily from methylprednisolone 1 g daily
Attempt to lower morphine exposure
Continue pyridostigmine 150 mg twice daily
Continue mycophenolate
Provide thiamine
Consider initiation of outpatient Rozanolixizumab-ken
Outpatient evaluation for amyloidosis as cause
Will follow peripherally
Subjective/Objective
Subjective Data
Date of Service: July 31, 2024
Neurology follow-up note
24-hour events: Febrile up to 38.1C, transiently hypoglycemic in the morning. She has been saturating well on room air and tolerating soft and bite sized with thick liquids diet.
Ms. Mayfield continues to have burning lower back pain. No reports of dyspnea, dysarthria or dysphagia.
Pelvic MRI with and without gadolinium (07/31/2024) No abnormal postcontrast enhancement or discrete mass lesion of the lumbosacral plexus. Thickening and signal alteration that now appears to involve the bilateral sciatic nerves extending from their
lumbosacral plexus origins into the bilateral proximal thighs, similar on the right and increased on the left compared to the previous pelvic MRI from 11/15/2023.
Chart review: CSF(07/25/2024) acellular, glucose�105, protein�159, cytology�rare small lymphocytes, no overt evidence of neoplastic or infectious process.
Brain MRI without tressa (07/21/2024)�unremarkable for age.
NCS/EMG of BL LEs and LUE(07/23/2024, unsure if warm study) showed evidence of axonal and demyelinating polyneuropathy affecting upper and lower extremities with active denervation in the left L5 distribution, bilateral medial gastrocnemius muscles,
and the right FCU muscle as well as diffuse neuropathic changes.
C-spine MRI without tressa (07/26/2024)�mild compression of the anterior spinal cord, degenerative disc disease, greatest at C5-6
PMH: Generalized myasthenia gravis(2023), DM, DLP, GERD, sclerosing intraductal papilloma, osteoporosis, hypothyroidism, ambulatory dysfunction, sacral decubitus
PSH: Lumbar laminectomy, R IJ catheter placement(07/24/2024) R BELL(07/2022) at [facility],
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
FH: Not contributory.
All: Aspirin, oxycodone
ROS: Constitutional: Negative. Negative for chills, fever and unexpected weight change.
HENT: Negative for diplopia, ptosis
Eyes: Negative. Negative for photophobia, pain and visual disturbance.
Respiratory: Negative for dyspnea
Cardiovascular: Negative for chest pain, palpitations and leg swelling.
Gastrointestinal: Positive for dysphagia, constipation
Endocrine: Negative. Negative for cold intolerance.
Genitourinary: Positive for chronic urinary incontinence
Musculoskeletal: Positive for back pain.
Skin: Negative for rash.
Allergic/Immunologic: Negative. Negative for immunocompromised state.
Neurological: Positive for proximal upper and lower extremity weakness, negative for dysarthria
Psychiatric/Behavioral: Positive for confusion
General: Well developed. In no acute distress.
Cardio: Regular rate and rhythm without murmur. Extremities are without cyanosis or edema.
Neuro:
Mental Status: Lethargic, requires constant stimulation to stay awake. Oriented to self, place, year. Follows simple requests. Nonfluent.
Cranial Nerves: Pupils are equally round and reactive to light. EOMs full. Visual knight full to confrontation. No ptosis. No nystagmus. V1-V3 intact to light touch and pinprick bilaterally, symmetric. Face symmetric. Normal hearing AU. The
palate elevated well. SCMs and traps 5/5. Tongue midline. No dysarthria.
Motor: Bilateral upper and lower proximal muscle atrophy and weakness.
Reflexes: Areflexic.
Sensory: Absent vibration at the toes and ankles. Preserved at the knees
Coordination: No dysmetria or tremor.
Gait: deferred
Assessment and Plan:
I. 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
II. Generalized myasthenia gravis, stable
III. Multifactorial encephalopathy (toxic, infectious)
IV. Moderate L4-L5 central spinal stenosis, right L5 radiculopathy with ongoing denervation. Chronic lower back pain.
V. Thrombocytopenia
. Cervical DJD
-Aspiration precautions
-I see no indications to continue PLEX at this time.
-Follow-up polyneuropathy blood work
-PT/OT
-Continue prednisone 35 mg every morning and Mestinon 60 mg 4 times daily with Mestinon Timespan 150 mg nightly.
-PT/OT
-DVT prophylaxis
-Avoid medications known to worsen myasthenia gravis
-Outpatient neurology follow-up
-Please recall neurology services any questions or concerns.
I personally reviewed all radiology and labs along with past medical records pertinent to current medical problems. Total time spent in patient care is 45 minutes.
Thank you for allowing us to participate in the care of this patient. Please do not hesitate to contact us with any questions or concerns.
Objective Data
Vital Signs
Temp Pulse Resp BP Pulse Ox
36.6 C 75 20 119/77 98
07/31/24 07:27 07/31/24 08:35 07/31/24 07:27 07/31/24 08:35 07/31/24 07:27
Lab Results
07/31/24 07:03
07/31/24 07:03
PT 14.7 Sec (11.4-14.6) H 07/28/24 03:22
INR 1.12 07/28/24 03:22
APTT 29.3 Sec (23.4-35.0) 07/28/24 03:22
Sodium 137 mmol/L (135-145) 07/31/24 07:03
Potassium 4.1 mmol/L (3.5-5.1) 07/31/24 07:03
BUN 14 mg/dl (7-17) 07/31/24 07:03
Glucose 57 mg/dl (70-99) L 07/31/24 07:03
Calcium 8.5 mg/dl (8.4-10.2) 07/31/24 07:03
Phosphorus 1.6 mg/dl (2.5-4.5) L 07/28/24 03:22
LDL Cholesterol, Calc 17 mg/dl 07/21/24 05:38
Whole Bld Vitamin B1 Cancelled 07/30/24 18:04
Vitamin B12 Cancelled 07/28/24 10:52
Patient Allergies
aspirin Allergy (Verified 07/20/24 10:01)
Unknown
oxycodone Allergy (Verified 07/20/24 10:01)
Unknown
Vital Signs and Labs
-
Vital Signs and Labs:
Vital Signs
Temp Pulse Resp BP Pulse Ox
36.6 C 75 20 119/77 98
07/31/24 07:27 07/31/24 08:35 07/31/24 07:27 07/31/24 08:35 07/31/24 07:27
Lab Results
07/31/24 07:03
07/31/24 07:03
PT 14.7 Sec (11.4-14.6) H 07/28/24 03:22
INR 1.12 07/28/24 03:22
APTT 29.3 Sec (23.4-35.0) 07/28/24 03:22
Sodium 137 mmol/L (135-145) 07/31/24 07:03
Potassium 4.1 mmol/L (3.5-5.1) 07/31/24 07:03
BUN 14 mg/dl (7-17) 07/31/24 07:03
Glucose 57 mg/dl (70-99) L 07/31/24 07:03
Calcium 8.5 mg/dl (8.4-10.2) 07/31/24 07:03
Phosphorus 1.6 mg/dl (2.5-4.5) L 07/28/24 03:22
LDL Cholesterol, Calc 17 mg/dl 07/21/24 05:38
Whole Bld Vitamin B1 Cancelled 07/30/24 18:04
Vitamin B12 Cancelled 07/28/24 10:52
Medications
-
Medications:
Generic Name Dose Route Start Last Admin
Trade Name Freq PRN Reason Stop Dose Admin
Acetaminophen 650 mg 07/20/24 13:23
Acetaminophen 650 Mg Rectal Suppository RECTAL 08/17/24 13:22
Q4HPRN PRN
MORRIS, mild pain, or temp >100.4F
Acetaminophen 650 mg 07/27/24 06:54
Acetaminophen 325 Mg Tablet PO 08/17/24 13:22
Q4HPRN PRN
MORRIS, mild pain, or temp >100.4F
Baclofen 7.5 mg 07/29/24 09:47 07/31/24 08:34
Baclofen 5 Mg Tablet PO 08/24/24 15:59 7.5 mg
TID JESSIE Administration
Dextrose 12.5 grams 07/20/24 13:23
Dextrose 50% (0.5 Grams/Ml) 50 Ml Syringe IV 08/17/24 13:22
[id number] PRN
hypoglycemia
Protocol
Enoxaparin Sodium 40 mg 07/21/24 08:00 07/31/24 08:37
Enoxaparin Sodium 40 Mg/0.4 Ml Syringe SC 08/18/24 07:59 40 mg
DAILY JESSIE Administration
Ferrous Sulfate 325 mg 07/29/24 08:00 07/31/24 08:36
Ferrous Sulfate 325 Mg Tablet PO 08/26/24 07:59 325 mg
DAILY JESSIE Administration
Glucagon 1 mg 07/20/24 13:23
Glucagon 1 Mg Vial IM 08/17/24 13:22
PRN PRN
hypoglycemia
Protocol
Hydromorphone HCl 0.5 mg 07/28/24 10:21 07/30/24 08:46
Hydromorphone 0.5 Mg/0.5 Ml Syringe IV 08/11/24 10:20 0.5 mg
Q3HPRN PRN Administration
breakthrough pain
Hydromorphone HCl 2 mg 07/30/24 14:21 07/30/24 23:29
Hydromorphone 2 Mg Tablet PO 08/13/24 14:20 2 mg
Q4HPRN PRN Administration
severe pain
Insulin Glargine 7 units/ 0.07 mls @ 0 mls/hr 07/26/24 20:00 07/30/24 22:18
Device SC 08/23/24 19:59 Not Given
HS JESSIE
As Directed
Insulin Glargine 15 units/ 0.15 mls @ 0 mls/hr 07/29/24 09:00 07/30/24 08:24
Device SC 08/26/24 08:59 0.15 mls
DAILY JESSIE Administration
As Directed
Insulin Aspart 0 units 07/26/24 16:30 07/31/24 08:31
Insulin Aspart Moderate Resistance 300 Units/3 Ml Pen.Injctr SC 08/23/24 16:29 Not Given
AC JESSIE
Protocol
Levothyroxine Sodium 50 mcg 07/27/24 06:54 07/31/24 05:54
Levothyroxine 50 Mcg Tablet PO 08/22/24 05:59 50 mcg
DAILY @ 0600 JESSIE Administration
Lisinopril 10 mg 07/30/24 08:00 07/31/24 08:36
Lisinopril 10 Mg Tablet PO 08/27/24 07:59 10 mg
DAILY JESSIE Administration
Magnesium Oxide 500 mg 07/26/24 20:00 07/31/24 08:37
Magnesium Oxide 500 Mg Tablet PO 08/23/24 19:59 500 mg
BID JESSIE Administration
Metoprolol Tartrate 25 mg 07/27/24 08:00 07/31/24 08:35
Metoprolol 25 Mg Regular Release Tablet PO 08/24/24 07:59 25 mg
BID JESSIE Administration
Morphine Sulfate 15 mg 07/28/24 20:00 07/31/24 08:37
Morphine 15 Mg Extended Release Tablet PO 08/11/24 19:59 15 mg
Q12 JESSIE Administration
Mycophenolate Mofetil 1,000 mg 07/26/24 20:00 07/31/24 08:37
Mycophenolate 500 Mg Tablet PO 08/23/24 19:59 1,000 mg
BID JESSIE Administration
Ondansetron HCl 4 mg 07/25/24 09:29 07/25/24 15:18
Ondansetron 4 Mg/2 Ml Vial IV 08/22/24 09:28 4 mg
Q6HPRN PRN Administration
NAUSEA/VOMITING
Pantoprazole Sodium 40 mg 07/27/24 08:00 07/31/24 08:37
Pantoprazole 40 Mg Delayed Release Tablet PO 08/24/24 07:59 40 mg
DAILY JESSIE Administration
Potassium Chloride 40 meq 07/28/24 08:00 07/31/24 08:35
Potassium Chloride 10% Oral Solution (40 Meq/30 Ml) Cup PO 08/25/24 07:59 40 meq
DAILY JESSIE Administration
Prednisone 30 mg/ Prednisone 5 35 mg 07/21/24 08:00 07/31/24 08:36
mg PO 08/18/24 07:59 35 mg
DAILY JESSIE Administration
Pregabalin 200 mg 07/27/24 06:54 07/31/24 08:37
Pregabalin 100 Mg Capsule PO 08/23/24 15:59 200 mg
TID JESSIE Administration
Pyridostigmine [place] 150 mg 07/27/24 06:54 07/31/24 08:36
Pyridostigmine 60 Mg Tablet PO 08/21/24 11:36 150 mg
BID JESSIE Administration
Sodium Chloride 0 flush 07/20/24 14:00 07/27/24 22:14
Sodium Chloride 0.9% (Flush) Syringe IV 08/17/24 13:59 2 flush
PER PROTOCOL JESSIE Administration
Home Medications
-
Home Medications
acetaminophen 325 mg tablet (Tylenol) 650 mg PO Q6HPRN PRN mild pain 07/20/24
alendronate 70 mg tablet (Fosamax) 70 mg PO WE OSTEOPOROSIS 07/20/24
ascorbic acid (vitamin C) 1,000 mg tablet (Vitamin C) 1,000 mg PO DAILY Supplement 07/20/24
bisacodyl 10 mg rectal suppository (Dulcolax (bisacodyl)) 10 mg [place] DAILYPRN PRN if no bm aftr mom 07/20/24
calcium carbonate 500 mg PO DAILY Supplement 07/20/24
cholecalciferol (vitamin D3) 50 mcg (2,000 unit) capsule (Vitamin D3) 50 mcg PO DAILY Supplement 07/20/24
cyanocobalamin (vitamin B-12) 1,000 mcg tablet 2,000 mcg PO DAILY Supplement 07/20/24
docusate sodium 100 mg capsule (Colace) 100 mg PO BID Constipation 07/20/24
duloxetine 30 mg capsule,delayed release (Cymbalta) 30 mg PO BID Mental Health/Anxiety 07/20/24
enoxaparin 40 mg/0.4 mL subcutaneous syringe (Lovenox) 40 mg SC DAILY Blood Clot Prevention/Tx 07/20/24
gabapentin 400 mg tablet 800 mg PO TID Pain 07/20/24
hydromorphone 2 mg tablet 2 mg PO Q4HPRN PRN severe pain 07/20/24
levothyroxine 50 mcg tablet (Synthroid) 50 mcg PO DAILY Thyroid 07/20/24
lisinopril 10 mg tablet 10 mg PO DAILY Blood Pressure 07/20/24
magnesium hydroxide 400 mg/5 mL oral suspension (Milk of Magnesia) 2,400 mg PO [id number] PRN constipation 07/20/24
menthol 0.44 %-zinc oxide 20.6 % topical ointment (Moisture Barrier Ointment) 1 applic topical TID Skin Issues 07/20/24
metformin 500 mg tablet 500 mg PO BID Diabetes 07/20/24
methocarbamol 500 mg tablet 500 mg PO QIDPRN PRN muscle spasms 07/20/24
morphine 15 mg tablet,extended release 15 mg PO Q12H Pain 07/20/24
mycophenolate mofetil 500 mg tablet 1,000 mg PO BID INFLAMMATION 07/20/24
ondansetron 4 mg disintegrating tablet 4 mg PO Q6HPRN PRN nausea 07/20/24
pantoprazole 40 mg tablet,delayed release (Protonix) 40 mg PO BID Gastrointestinal Issue 07/20/24
prednisone 10 mg tablet 35 mg PO DAILY INFLA 07/20/24
pyridostigmine bromide 60 mg tablet 150 mg PO BID Neurological Condition 07/20/24
rosuvastatin 20 mg tablet (Crestor) 20 mg PO DAILY High Cholesterol 07/20/24
sennosides 8.6 mg tablet (senna) 17.2 mg PO BIDPRN PRN constipation 07/20/24
sodium phosphates 19 gram-7 gram/118 mL enema (Fleet Enema) 118 ml [place] DAILYPRN PRN if no bm aftr dulcalox 07/20/24
zinc oxide 1 ea topical DAILYPRN PRN b/l buttock 07/20/24
zinc oxide 1 ea topical TID b/l buttock 07/20/24
[2024-07-31 11:24] LABS: Glucose - Point of Care 108 mg/dl (70-99)
[2024-07-31 12:05] VITALS: BP 128/81
--- NOTE | 2024-07-31 12:08 | PTCARENOTE ---
Patient is somnolent and unable to keep full conversation, arouses to sternal rub and opens eyes for a few seconds then goes back to sleep. Patient states she does not feel good. VSS. Blood sugar 108. MD Ramos notified and new orders placed. will
continue to monitor.
[2024-07-31 12:47] LABS: COVID-19 Antigen Negative (Negative)
[2024-07-31 12:53] LABS: Venous Blood Gas B.E. -0.4 mmol/L (-4 to +4); Venous Blood Gas HCO3 24.8 mmol/L (22-27); Venous Blood Gas O2 Sat % 98.1 %; Venous Blood Gas pCO2 42 mmHg (35-48); Venous Blood Gas pH 7.38 (7.32-7.43); Venous Blood Gas pO2 99 mmHg (30-50)
--- NOTE | 2024-07-31 13:12 | W.PN.HOSP.TC ---
Today's Communication/Plan
-
fever work up
vbg, ua, covid, flu f/u
f/u thrombocytopenia work up
Assessment / Plan
Assessment / Plan
Physical Exam
General: Appears chronically, not in distress,
HEENT: Normocephalic, Atraumatic, EOMI, MMM
Respiratory: Clear and limited to Auscultation bilaterally
Cardiac: Normal S1/S2,
GI: Soft, Nontender, Nondistended, Normal Bowel Sounds
Extremities: No cyanosis
Neuro: AAOX3, followed commands
Psych: calm
# SVT episode
Currently stable heart rate on beta-carmen
Echocardiogram showed LVEF 65 to 70%, no regional wall motion abnormalities, normal RV size and function, aortic sclerosis without stenosis.
Appreciate cardiology input
#Rapid response on evening of 07/26. Noted on a separate note, likely vasovagal and noticed to have SVT at same time.
- rapid response on 07/24 with syncopal episode. Workup did not show findings of acute stroke/PUBLIC SAFETY DIRECTOR infection/seizure. Likely vasovagal
#B/l pleural Effusion
-will avoid lasix at this time due to plasmapharesis and hypotension
-on RA, no respiratory issues
#Lethargy
-acute on chronic today
-Low grade fever
-F/u COVID, SARS-CoV-2
-F/u VBG
-Vitals stable
-F/u UA
#Thrombocytopenia
-f/u d-dimer, fibrinogen, haptoglobin, ldh
-hold lovenox if platelet levels worsen
#Acute on Chronic pain syndrome with opioid dependency
#Recent laminectomy with w/ Rocio at [facility]
Pain is better controlled now.
She takes gabapentin, opioids at home. d/w neurology , trial of high dose Lyrica for better absorption, added Baclofen for muscle spasm.
changed to IV Dilaudid PRN, restarted oral morphine
-restart po dilaudid in effort to reduce iv pain meds
Added laxatives
# Myasthenia gravis flare-up
She seems to be improving with resolution of dysphagia.
She started on diet, appreciate speech therapy help
Changed prednisone to IV Solu-Medrol, 1 g for 5 doses, now back on oral prednisone
Continue with pyridostigmine & CellCept
Consulted hematology for plasmapheresis. Discussed with IR, did nontunneled central line. She received 2 sessions of plasmapheresis but noticed to have post procedure complications syncope/arrhythmia/hypofibrinogenemia
Head CT negative, brain MRI neg done twice.
Appreciate hematology and neurology help
# Acute blood loss anemia with possible iron deficiency anemia
c/w oral iron
Patient does not accept blood transfusion.
No more active bleeding noted. Fibrinogen level 175
# Hypofibrinogenemia
improved post FFP 4 units & cryoprecipitate 2 units.
#History of myasthenia gravis
Follows with Dr. Hood
Home regimen: Mestinon 150 mg twice a day, prednisone to 35 mg in the morning, CellCept 1000 mg twice a day
#Acute urinary tract infection. Resolved,. Finished Tx.
Status post IV Ancef in the ER
s/p IV Rocephin, urine cultures growing Escherichia coli Klebsiella pneumonia, both susceptible to Rocephin. She received total of 5 days, discussed with ID. No need for further antibiotics
#New compression fractures at the superior endplates of L1, L2, and L3 with bone marrow edema, age indeterminate but most suggestive of subacute fractures
-f/u outpatient
#Depression
Continue Cymbalta
# Hyponatremia, mild.
# History of dysphagia, continue with speech therapy recommendation
# Hypomagnesemia, replace
# Hypothyroidism
Continue levothyroxine, recommend repeating TSH levels in 4-6 weeks
#Essential Hypertension
better controlled.
hold ADY/ARB while undergoing pheresis, she is on metoprolol
# Type 2 diabetes
Uncontrolled due to steroid therapy
Holding Metformin
c/w ISS . Added Lantus and Pre-meal
carb controlled diet
# GERD
-PPI continued
#hyperlipidemia
DVT prophylaxis� resumed subcu Lovenox with recovery of fibrinogen level and platelet count
Full code
Total time spent on today's encounter was 50 minutes which included time spent in counseling the patient/family regarding diagnosis and treatment plan as listed above, goals of care, and symptom management. Case was discussed with nursing staff,
specialists, and care coordinators/case management. All labs and imaging personally reviewed by me. Remainder the time spent in detailed review of previous records, lab data, imaging, and other medical provider documentation.
Anticipated Discharge: > 48 hours
Subjective/Interval History
-
Date of Service: July 31, 2024
lethargic today, spiked low grade fever yest evening and this am
Objective Data
-
Labs:
Laboratory Results
07/31/24
07:03
WBC 9.7
Hgb 9.9 L
Hct 30.2 L
Plt Count 87 L D
Sodium 137
Potassium 4.1
Chloride 113 H
Carbon Dioxide 25
BUN 14
Creatinine 0.6
Glucose 57 L
Calcium 8.5
Total Bilirubin 0.5
AST 29
ALT 23
Alkaline Phosphatase 54
Vital Signs:
Vital Signs
Temp Pulse Resp BP Pulse Ox
100.2 F 72 16 128/81 100
07/31/24 12:05 07/31/24 12:05 07/31/24 12:05 07/31/24 12:05 07/31/24 12:05
I&O
07/30/24 07/31/24 08/01/24
06:59 06:59 06:59
Intake Total 240 / 240 360 / 360
Balance 240 / 240 360 / 360
Review of Systems
-
History Source: Patient
All other systems: Not reviewed unless documented
Data Reviewed
-
Diagnostic Radiology: Report Reviewed by me
MRI: Report Reviewed by me
Labs: Labs Reviewed by me
[2024-07-31 14:10] LABS: LDH 322 U/L (120-246)
[2024-07-31 14:11] LABS: Fibrinogen 281 MG/DL (199-459)
[2024-07-31 14:14] LABS: D-Dimer 0.66 ug/mlFEU (0.00-0.50)
[2024-07-31] MEDS: LIORESAL PO ×2 (15:36→20:50)
[2024-07-31] MEDS: LYRICA PO ×2 (15:36→20:51)
[2024-07-31 15:40] VITALS: BP 126/60
[2024-07-31 15:46] LABS: Urine Albumin 2+ (Neg - Trace); Urine Bilirubin Negative (Negative); Urine Character Clear (Clear); Urine Color Yellow; Urine Glucose Negative (Negative); Urine Ketone Negative (Negative); Urine Leukocyte 3+ (Negative); Urine Nitrite Negative (Negative); Urine Occult Blood 2+ (Negative); Urine Urobilinogen Negative (Neg - 1+)
[2024-07-31 15:54] LABS: Urine White Cell 30-40 /HPF (0-5)
[2024-07-31 15:55] LABS: Urine Bacteria Moderate (Negative)
[2024-07-31 16:20] LABS: Glucose - Point of Care 142 mg/dl (70-99)
[2024-07-31 19:38] VITALS: BP 134/84
[2024-07-31 21:29] LABS: Glucose - Point of Care 184 mg/dl (70-99)
[2024-07-31] MEDS: LANTUS 0.07 UNITS SC (21:59)
[2024-07-31 22:05] LABS: SSB (La)(ENA) Ab, IgG 0 AU/mL (0-40)
[2024-07-31 23:55] VITALS: BP 131/93
[2024-08-01] MEDS: TYLENOL 650 MG PO (01:52)
[2024-08-01 03:29] VITALS: BP 122/84
[2024-08-01] MEDS: SYNTHROID 50 MCG PO (05:56)
[2024-08-01 07:26] LABS: Glucose - Point of Care 91 mg/dl (70-99)
[2024-08-01 07:43] VITALS: BP 124/86
--- NOTE | 2024-08-01 07:50 | W.PN.ONC2 ---
Today's Communication / Plan
-
Hematology will sign off. Call with new issues.
Impression
Impression
Myasthenia gravis flare
UTI
hyponatremia
Chronic pain syndrome with opioid dependency
hypofibrinogenemia / PLEX-resolved
acute anemia -stable
acute thrombocytopenia stable
Plan
Plan
1st PLEX 07/24 was albumin exchange only. 2nd PLEX 07/26 2000cc albumin exchange, 3U FFP due to low fibrinogen. No further PLEX recommended per neurology. [facility] notified and cancelled remaining exchange starting 07/27. PLease reach out if PLEX
needs to be reinitiated.
new and worsening anemia during this admission. pt denies melena, BRBPR (not bad episode of hemorrhoid bleeding for several days last month that resolved).
pt does not accept PRBC products due to prior JW status.
No indication for B12, folate, or iron repletion at this time.
Hgb is improved from 8.1-9.9.
PLT also dropped but this is probably transient and should also improve spontaneously over time
Subjective/Objective
Chief Complaint
ACS Heme Onc
Subjective
Asking if she can be discharged to rehab as hospital is affecting her sleeping which affects her strength. Plasma exchange has been discontinued. Plasma exchange pheresis catheter removed 07/27.
Vital Signs:
Vital Signs
Temp Pulse Resp BP Pulse Ox
98.6 F 88 20 124/86 92
08/01/24 07:43 08/01/24 07:43 08/01/24 07:43 08/01/24 07:43 08/01/24 07:43
Lab Results:
Laboratory Data
WBC 9.7 10^3/uL (4.8-10.8) 07/31/24 07:03
Hgb 9.9 g/dL (12.0-16.0) L 07/31/24 07:03
Plt Count 87 10^3/uL (130-400) L D 07/31/24 07:03
PT 14.7 Sec (11.4-14.6) H 07/28/24 03:22
INR 1.12 07/28/24 03:22
APTT 29.3 Sec (23.4-35.0) 07/28/24 03:22
eGFR > 60.00 07/31/24 07:03
[2024-08-01] MEDS: NOVOLOG FLEXPEN-MODERATE RESISTANCE SC ×3 (08:20→16:29)
[2024-08-01] MEDS: DELTASONE 35 MG PO (08:31)
[2024-08-01] MEDS: LYRICA 200 MG PO (08:31)
[2024-08-01] MEDS: MESTINON 150 MG PO (08:32)
[2024-08-01] MEDS: CELLCEPT 1000 MG PO (08:32)
[2024-08-01] MEDS: LIORESAL 7.5 MG PO (08:33)
[2024-08-01] MEDS: LOVENOX 40 MG SC (08:33)
[2024-08-01] MEDS: KCL ELIXIR 40 MEQ PO (08:34)
[2024-08-01] MEDS: MAGNESIUM OXIDE 500 MG PO (08:34)
[2024-08-01] MEDS: FEOSOL 325 MG PO (08:34)
[2024-08-01] MEDS: LOPRESSOR 25 MG PO (08:36)
[2024-08-01] MEDS: PROTONIX 40 MG PO (08:37)
[2024-08-01] MEDS: ZESTRIL 10 MG PO (08:37)
[2024-08-01] MEDS: MS CONTIN (EXTENDED RELEASE) 15 MG PO (08:38)
[2024-08-01] MEDS: LANTUS SC ×2 (09:30→22:46)
[2024-08-01 09:42] LABS: % Basophils 0.2 % (0-2); % Eosinophils 0.4 % (0-6); % Immature Granulocytes 0.5 % (0-0.5); % Lymphocytes 11.6 % (20.5-51.1); % Monocytes 5.4 % (1.7-9.3); % Neutrophils 81.9 % (42.2-75.2); Absolute Eosinophils 0.1 10^3/uL (0-0.7); Absolute Immature Granulocytes 0.1 10^3/uL (0-0.05); Absolute Lymphocytes 1.3 10^3/uL (1.2-3.4); Absolute Monocytes 0.6 10^3/uL (0.1-0.6); Absolute Neutrophils 9.5 10^3/uL (1.4-6.5); Hematocrit 32.4 % (37.0-47.0); Hemoglobin 10.7 g/dL (12.0-16.0); Mean Corpuscular Hgb 28.2 pg (27.0-31.0); Mean Corpuscular Volume 85.5 fL (81.0-99.0); Nucleated Red Blood Cells % 0.2 %; Red Blood Cell Count 3.79 10^6/uL (4.20-5.40); Red Cell Dist. Width 14.9 % (11.5-14.5); White Blood Cell Count 11.6 10^3/uL (4.8-10.8)
[2024-08-01] MEDS: STERILE WATER FOR INJECTION 10 ML IV (10:32)
[2024-08-01] MEDS: ROCEPHIN 1000 MG IV (10:33)
[2024-08-01 10:49] LABS: ALT (SGPT) 25 U/L (0-35); AST (SGOT) 20 U/L (14-36); Alkaline Phosphatase 85 U/L (38-126); Blood Urea Nitrogen 13 mg/dl (7-17); Calcium 8.5 mg/dl (8.4-10.2); Carbon Dioxide 24 mmol/L (22-30); Chloride 112 mmol/L (98-107); Estimated Creatinine Clearance 68 ml/min; Glucose 73 mg/dl (70-99); Potassium 4.5 mmol/L (3.5-5.1); Sodium 136 mmol/L (135-145); Total Bilirubin 0.6 mg/dl (0.2-1.3); Total Protein 4.8 g/dl (6.3-8.2); eGFR > 60.00
[2024-08-01 10:55] VITALS: BP 137/73
--- NOTE | 2024-08-01 11:09 | CM ---
CM reviewed chart, spoke with Marisela from [facility]- patient not for discharge today. Update to patients daughter, Ashley. Ashley requesting call from Physician when able- TT to Doctor with update. CM will continue to follow for all discharge
planning needs.
Plan; [facility] when stable, will require ambulance transport
[2024-08-01 11:21] LABS: Glucose - Point of Care 93 mg/dl (70-99)
--- NOTE | 2024-08-01 11:29 | WOUNDNOTE ---
WON RN NOTE: Wound care done with assist of nurse Inocencio. Patient turned to sides, large incontinence of urine and smear of stool. Skin care given, mild MASD in groin skin folds, clear barrier cream applied. Patient reports honey gel ziegler when
applied to sacral wounds. Will update wound care orders and discontinue honey gel. Ischium's both intact with old scarring. Heels are intact foams changed. R medial foot and great toe with less swelling, remain discolored. Patient easy to turn, air
overlay added to bed and palm check done with adequate inflation. Pillow under calves and repositioned patient onto L semi side lying position. Updated nurse Winifred and will follow as needed.
[2024-08-01 12:29] LABS: Platelet Count 152 10^3/uL (130-400)
--- NOTE | 2024-08-01 13:28 | W.PN.HOSP.TC ---
Today's Communication/Plan
-
zosyn
f/u cultures
Assessment / Plan
Assessment / Plan
Physical Exam
General: Appears chronically, not in distress,
HEENT: Normocephalic, Atraumatic, EOMI, MMM
Respiratory: Clear and limited to Auscultation bilaterally
Cardiac: Normal S1/S2,
GI: Soft, Nontender, Nondistended, Normal Bowel Sounds
Extremities: No cyanosis
Neuro: AAOX3, followed commands
Psych: calm
# SVT episode
Currently stable heart rate on beta-carmen
Echocardiogram showed LVEF 65 to 70%, no regional wall motion abnormalities, normal RV size and function, aortic sclerosis without stenosis.
Appreciate cardiology input
-Rapid response on evening of 07/26. Noted on a separate note, likely vasovagal and noticed to have SVT at same time.
- rapid response on 07/24 with syncopal episode. 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 Likely vasovagal
#B/l pleural Effusion
-will avoid lasix at this time due to plasmapharesis and hypotension
-on RA, no respiratory issues
-f/u imaging outpt
#Lethargy
#Low grade fever
#UTI
-acute on chronic, improved
-ensure no fever >24 hours
-F/u COVID, SARS-CoV-2 negative
-Vitals stable
-Start zosyn, f/u cultures
#Thrombocytopenia
-chronic
-hold lovenox if platelet levels worsen
-improved today
#Acute on Chronic pain syndrome with opioid dependency
#Recent laminectomy with w/ Rocio at [facility]
Pain is better controlled now.
She takes gabapentin, opioids at home. d/w neurology , trial of high dose Lyrica for better absorption, added Baclofen for muscle spasm.
changed to IV Dilaudid PRN, restarted oral morphine
-restart po dilaudid in effort to reduce iv pain meds
Added laxatives
# Myasthenia gravis flare-up
She seems to be improving with resolution of dysphagia.
She started on diet, appreciate speech therapy help
Changed prednisone to IV Solu-Medrol, 1 g for 5 doses, now back on oral prednisone
Continue with pyridostigmine & CellCept
Consulted hematology for plasmapheresis. Discussed with IR, did nontunneled central line. She received 2 sessions of plasmapheresis but noticed to have post procedure complications syncope/arrhythmia/hypofibrinogenemia
Head CT negative, brain MRI neg done twice.
Appreciate hematology and neurology help
# Acute blood loss anemia with possible iron deficiency anemia
c/w oral iron
Patient does not accept blood transfusion.
No more active bleeding noted. Fibrinogen level 175
# Hypofibrinogenemia
improved post FFP 4 units & cryoprecipitate 2 units.
#History of myasthenia gravis
Follows with Dr. Hood
Home regimen: Mestinon 150 mg twice a day, prednisone to 35 mg in the morning, CellCept 1000 mg twice a day
#Acute urinary tract infection. Resolved,. Finished Tx.
Status post IV Ancef in the ER
s/p IV Rocephin, urine cultures growing Escherichia coli Klebsiella pneumonia, both susceptible to Rocephin. She received total of 5 days, discussed with ID. No need for further antibiotics
#New compression fractures at the superior endplates of L1, L2, and L3 with bone marrow edema, age indeterminate but most suggestive of subacute fractures
-f/u outpatient
#Depression
Continue Cymbalta
# Hyponatremia, mild.
# History of dysphagia, continue with speech therapy recommendation
# Hypomagnesemia, replace
# Hypothyroidism
Continue levothyroxine, recommend repeating TSH levels in 4-6 weeks
#Essential Hypertension
better controlled.
hold ADY/ARB while undergoing pheresis, she is on metoprolol
# Type 2 diabetes
Uncontrolled due to steroid therapy
Holding Metformin
c/w ISS . Added Lantus and Pre-meal
carb controlled diet
# GERD
-PPI continued
#hyperlipidemia
DVT prophylaxis� resumed subcu Lovenox with recovery of fibrinogen level and platelet count
Full code
Total time spent on today's encounter was 51 minutes which included time spent in counseling the patient/family regarding diagnosis and treatment plan as listed above, goals of care, and symptom management. Case was discussed with nursing staff,
specialists, and care coordinators/case management. All labs and imaging personally reviewed by me. Remainder the time spent in detailed review of previous records, lab data, imaging, and other medical provider documentation.
Anticipated Discharge: 24 - 48 hours
Subjective/Interval History
-
Date of Service: August 01, 2024
mental status improved today
Objective Data
-
Labs:
Laboratory Results
08/01/24
09:21
WBC 11.6 H
Hgb 10.7 L
Hct 32.4 L
Plt Count 152 D
Sodium 136
Potassium 4.5
Chloride 112 H
Carbon Dioxide 24
BUN 13
Creatinine 0.7
Glucose 73
Calcium 8.5
Total Bilirubin 0.6
AST 20
ALT 25
Alkaline Phosphatase 85
Vital Signs:
Vital Signs
Temp Pulse Resp BP Pulse Ox
98.4 F 74 20 137/73 100
08/01/24 10:55 08/01/24 10:55 08/01/24 10:55 08/01/24 10:55 08/01/24 10:55
I&O
07/31/24 08/01/24 08/02/24
06:59 06:59 06:59
Intake Total 360 / 360 240 / 240
Balance 360 / 360 240 / 240
Review of Systems
-
History Source: Patient
All other systems: Not reviewed unless documented
Data Reviewed
-
Diagnostic Radiology: Report Reviewed by me
MRI: Report Reviewed by me
Labs: Labs Reviewed by me
[2024-08-01] MEDS: ZOSYN 100 IV ×2 (13:54→21:50)
[2024-08-01 15:11] VITALS: BP 115/75
[2024-08-01 16:25] LABS: Glucose - Point of Care 109 mg/dl (70-99)
[2024-08-01] MEDS: LIORESAL PO ×2 (16:28→22:12)
[2024-08-01] MEDS: LYRICA PO ×2 (16:29→22:12)
[2024-08-01 19:33] VITALS: BP 128/86
[2024-08-01 21:38] VITALS: BP 146/92
[2024-08-01 21:39] LABS: Glucose - Point of Care 81 mg/dl (70-99)
[2024-08-01] MEDS: MS CONTIN (EXTENDED RELEASE) PO (22:03)
[2024-08-01] MEDS: MAGNESIUM OXIDE PO (22:03)
[2024-08-01] MEDS: LOPRESSOR PO (22:11)
[2024-08-01] MEDS: CELLCEPT PO (22:11)
[2024-08-01] MEDS: MESTINON PO (22:11)
[2024-08-01] MEDS: LEVSIN ORAL DROPS 0.25 MG TUBE (23:16)
[2024-08-01] MEDS: DILAUDID 0.5 MG IV (23:16)
[2024-08-02] VITALS (7 sets, daily range): BP systolic 86–126; BP diastolic 57–89; PULSE 72; O2SAT 100
[2024-08-02] MEDS: ZOSYN 100 IV ×2 (02:50→09:33)
--- NOTE | 2024-08-02 03:52 | W.PN.UPDATE ---
Update Note
Progress Note Update
RN stated patients daughters wants to talk to the provider. Family voices concern about patient (their mother) is having too much secretions, phlegm since 07/31 and unable to cough it up to spit or swallow. Family also requesting update on discharge
and plan.
Patient seen and evaluated. Patient AAO conversant, audible gurgles when talking, reported she is annoyed and worried she will choke on her own saliva, denies shortness of breath or chest pain. Lungs with some rales, denies shortness of breath,
chest pain, stable VS. not in any apparent distress. Encouraged to spit and was able to collect sputum.thin Sputum frothy white. one dose of Levsin ordered.
RT made aware, suggested oral suction at present, suction order in place, collect sputum for culture.
Assured family and patient that she is been treated for UTI and is on antibiotic Zosyn
[2024-08-02] MEDS: SYNTHROID PO (05:41)
[2024-08-02 05:53] LABS: Glucose - Point of Care 68 mg/dl (70-99)
[2024-08-02] MEDS: DEXTROSE 50% SYRINGE 12.5 GRAMS IV ×2 (05:59→11:24)
[2024-08-02] MEDS: DILAUDID 0.5 MG IV ×2 (06:29→10:12)
--- NOTE | 2024-08-02 06:38 | W.PN.UPDATE ---
Update Note
Progress Note Update
secretions likely due to pyridostigmine, will order Levsin BID prn. confirmed with pharmacist.
[2024-08-02 06:49] LABS: Glucose - Point of Care 99 mg/dl (70-99)
--- NOTE | 2024-08-02 07:33 | PTCARENOTE ---
See RUFUS Bah's note regarding patient's increased sputum production throughout night. RUFUS Bah addressed patient and daughters' concerns. Sputum culture collected and sent by this RN.
[2024-08-02 09:12] LABS: ALT (SGPT) 12 U/L (0-35); AST (SGOT) 12 U/L (14-36); Albumin 1.7 g/dl (3.5-5.0); Alkaline Phosphatase 50 U/L (38-126); Blood Urea Nitrogen 8 mg/dl (7-17); Calcium 5.9 mg/dl (8.4-10.2); Carbon Dioxide 17 mmol/L (22-30); Chloride 122 mmol/L (98-107); Estimated Creatinine Clearance 79 ml/min; Glucose 53 mg/dl (70-99); Potassium 3.4 mmol/L (3.5-5.1); Sodium 139 mmol/L (135-145); Total Bilirubin 0.5 mg/dl (0.2-1.3); Total Protein 3.1 g/dl (6.3-8.2); eGFR > 60.00
[2024-08-02] MEDS: MS CONTIN (EXTENDED RELEASE) 15 MG PO (09:33)
[2024-08-02] MEDS: PROTONIX 40 MG PO (09:34)
[2024-08-02] MEDS: LIORESAL 7.5 MG PO (09:35)
[2024-08-02] MEDS: MESTINON 150 MG PO (09:36)
[2024-08-02] MEDS: LOPRESSOR 25 MG PO (09:43)
[2024-08-02] MEDS: DELTASONE 35 MG PO (09:44)
[2024-08-02] MEDS: LYRICA 200 MG PO (09:49)
[2024-08-02] MEDS: CELLCEPT 1000 MG PO (09:50)
[2024-08-02] MEDS: ZESTRIL 10 MG PO (09:50)
[2024-08-02] MEDS: KCL ELIXIR 40 MEQ PO (09:52)
[2024-08-02] MEDS: LEVSIN 0.125 MG PO (09:52)
[2024-08-02] MEDS: FEOSOL 325 MG PO (09:53)
[2024-08-02] MEDS: LOVENOX 40 MG SC (09:53)
[2024-08-02] MEDS: MAGNESIUM OXIDE 500 MG PO (09:54)
[2024-08-02] MEDS: LANTUS SC (09:54)
[2024-08-02] MEDS: FLUSH (NSS) 1 FLUSH IV (10:13)
[2024-08-02 10:21] LABS: Glucose - Point of Care 109 mg/dl (70-99)
[2024-08-02 10:45] LABS: Glucose - Point of Care 49 mg/dl (70-99)
[2024-08-02 11:14] LABS: % Basophils 0.1 % (0-2); % Eosinophils 0.9 % (0-6); % Immature Granulocytes 0.9 % (0-0.5); % Lymphocytes 14.2 % (20.5-51.1); % Monocytes 6.7 % (1.7-9.3); % Neutrophils 77.2 % (42.2-75.2); Absolute Eosinophils 0.1 10^3/uL (0-0.7); Absolute Immature Granulocytes 0.1 10^3/uL (0-0.05); Absolute Lymphocytes 1.4 10^3/uL (1.2-3.4); Absolute Monocytes 0.7 10^3/uL (0.1-0.6); Absolute Neutrophils 7.8 10^3/uL (1.4-6.5); Hematocrit 35.1 % (37.0-47.0); Hemoglobin 11.3 g/dL (12.0-16.0); Mean Corp Hgb Conc. 32.2 g/dL (33.0-37.0); Mean Corpuscular Hgb 28.2 pg (27.0-31.0); Mean Corpuscular Volume 87.5 fL (81.0-99.0); Mean Platelet Volume 10.7 fL (7.4-10.4); Nucleated Red Blood Cells % 0 %; Platelet Count 144 10^3/uL (130-400); Red Blood Cell Count 4.01 10^6/uL (4.20-5.40); Red Cell Dist. Width 14.8 % (11.5-14.5); White Blood Cell Count 10.1 10^3/uL (4.8-10.8)
[2024-08-02 11:22] LABS: Glucose - Point of Care 59 mg/dl (70-99)
[2024-08-02 12:01] LABS: Glucose - Point of Care 96 mg/dl (70-99)
[2024-08-02 12:15] LABS: Glucose - Point of Care 87 mg/dl (70-99)
--- NOTE | 2024-08-02 12:18 | W.PN.HOSP.TC ---
Addendum entered and electronically signed by Cruz Ramos MD 08/02/24 17:45:
[id number]
Original Note:
Today's Communication/Plan
-
Ciprofloxacin for 5 additional days
Hyoscyamine as needed
Metoprolol for SVT
Follow-up imaging for bilateral pleural effusion outpatient
Monitor CBC and BMP closely outpatient
Follow-up neurology outpatient, continue prednisone, pyridostigmine, CellCept
Follow-up neurosurgery outpatient for compression fractures
Assessment / Plan
Assessment / Plan
Physical Exam
General: Appears chronically, not in distress,
HEENT: Normocephalic, Atraumatic, EOMI, MMM
Respiratory: Clear and limited to Auscultation bilaterally
Cardiac: Normal S1/S2,
GI: Soft, Nontender, Nondistended, Normal Bowel Sounds
Extremities: No cyanosis
Neuro: AAOX3, followed commands
Psych: calm
# SVT episode
Currently stable heart rate on beta-carmen
Echocardiogram showed LVEF 65 to 70%, no regional wall motion abnormalities, normal RV size and function, aortic sclerosis without stenosis.
Appreciate cardiology input
-Rapid response on evening of 07/26. Noted on a separate note, likely vasovagal and noticed to have SVT at same time.
- rapid response on 07/24 with syncopal episode. 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 Likely vasovagal
#B/l pleural Effusion
-will avoid lasix at this time due to plasmapharesis and hypotension
-on RA, no respiratory issues
-f/u imaging outpt
#Lethargy
#Low grade fever
#UTI, Pseudomonas
-acute on chronic, improved
-ensure no fever >24 hours
-F/u COVID, SARS-CoV-2 negative
-Vitals stable
�Switch Zosyn to ciprofloxacin for additional 5 days
Mental status improved
#Thrombocytopenia
-chronic
-hold lovenox if platelet levels worsen
-improved today
� Follow-up CBC outpatient
#Acute on Chronic pain syndrome with opioid dependency
#Recent laminectomy with w/ Rocio at [facility]
Pain is better controlled now.
She takes gabapentin, opioids at home. d/w neurology , trial of high dose Lyrica for better absorption, added Baclofen for muscle spasm.
changed to IV Dilaudid PRN, restarted oral morphine
-restart po dilaudid -tolerating
Added laxatives
# Myasthenia gravis flare-up
She seems to be improving with resolution of dysphagia.
She started on diet, appreciate speech therapy help
Changed prednisone to IV Solu-Medrol, 1 g for 5 doses, now back on oral prednisone
Continue with pyridostigmine & CellCept
Consulted hematology for plasmapheresis. Discussed with IR, did nontunneled central line. She received 2 sessions of plasmapheresis but noticed to have post procedure complications syncope/arrhythmia/hypofibrinogenemia
Head CT negative, brain MRI neg done twice.
Appreciate hematology and neurology help
#Oral secretions
� Most likely secondary to pyridostigmine
� Hyoscyamine ordered.
# Acute blood loss anemia with possible iron deficiency anemia
c/w oral iron
Patient does not accept blood transfusion.
No more active bleeding noted. Fibrinogen level 175
Follow-up hematology outpatient
# Hypofibrinogenemia
improved post FFP 4 units & cryoprecipitate 2 units.
#History of myasthenia gravis
Follows with Dr. Hood
Home regimen: Mestinon 150 mg twice a day, prednisone to 35 mg in the morning, CellCept 1000 mg twice a day
#Acute urinary tract infection. Resolved,. Finished Tx.
Now with recurrent Pseudomonas - see above
Status post IV Ancef in the ER
s/p IV Rocephin, urine cultures growing Escherichia coli Klebsiella pneumonia, both susceptible to Rocephin. She received total of 5 days, discussed with ID. No need for further antibiotics
#New compression fractures at the superior endplates of L1, L2, and L3 with bone marrow edema, age indeterminate but most suggestive of subacute fractures
-f/u outpatient, NSG
#Depression
Continue Cymbalta
# Hyponatremia, mild.
# History of dysphagia, continue with speech therapy recommendation
# Hypomagnesemia, replace
# Hypothyroidism
Continue levothyroxine, recommend repeating TSH levels in 4-6 weeks
#Essential Hypertension
better controlled.
hold ADY/ARB while undergoing pheresis, she is on metoprolol
# Type 2 diabetes
Uncontrolled due to steroid therapy
Holding Metformin
c/w ISS . Added Lantus and Pre-meal
carb controlled diet
# GERD
-PPI continued
#hyperlipidemia
DVT prophylaxis� resumed subcu Lovenox with recovery of fibrinogen level and platelet count
Full code
More than 30 minutes spent in discharge including
Final examination of the patient
Summarizing hospital stay
Instructions for continuing care to all relevant caregivers
Preparation of discharge records, prescriptions, and referral forms
Total time spent (in minutes): 45
Anticipated Discharge: Today
Subjective/Interval History
-
Date of Service: August 02, 2024
feeling well, no acute events
Objective Data
-
Labs:
Laboratory Results
08/02/24 08/02/24 08/02/24
08:22 09:53 10:26
WBC Cancelled 10.1 Cancelled
Hgb Cancelled 11.3 L Cancelled
Hct Cancelled 35.1 L Cancelled
Plt Count Cancelled 144 Cancelled
Sodium 139 Pending
Potassium 3.4 L Pending
Chloride 122 H Pending
Carbon Dioxide 17 L Pending
BUN 8 Pending
Creatinine 0.5 L Pending
Glucose 53 L* Pending
Calcium 5.9 L* D Pending
Total Bilirubin 0.5 Pending
AST 12 L Pending
ALT 12 Pending
Alkaline Phosphatase 50 Pending
Vital Signs:
Vital Signs
Temp Pulse Resp BP Pulse Ox
98.0 F 81 16 121/78 94
08/02/24 11:00 08/02/24 11:00 08/02/24 11:00 08/02/24 11:00 08/02/24 11:00
I&O
08/01/24 08/02/24 08/03/24
06:59 06:59 06:59
Intake Total 240 / 240 320 / 320 120 / 120
Balance 240 / 240 320 / 320 120 / 120
Review of Systems
-
History Source: Patient
All other systems: Not reviewed unless documented
Data Reviewed
-
Diagnostic Radiology: Report Reviewed by me
MRI: Report Reviewed by me
Labs: Labs Reviewed by me
[2024-08-02] MEDS: CIPRO 500 MG PO (12:30)
[2024-08-02] MEDS: KLOR-CON 40 MEQ PO (12:31)
--- NOTE | 2024-08-02 12:33 | W.DS.TRANS ---
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
-
Discharge Instructions:
Discharge Diagnosis/Procedures # Myasthenia gravis flare-up
#Acute urinary tract infection.
# SVT episode
#B/l pleural Effusion
#Lethargy
#Low grade fever
#UTI
#Thrombocytopenia
Diet Low Fat,Low Cholesterol
Activity As tolerated
Blood Work bmp and cbc in 5 days with pcp
Repeat thyroid panel in 4 to 6 weeks
Others Tests CXR outpatient - had minimal pleural effusions
Instructions:
Stand-Alone Forms:
Changes to Home Medications: Yes
Discharge Medications:
DC Medications w/original date entered in [employer]
acetaminophen 325 mg tablet (Tylenol) 650 mg PO Q6HPRN PRN mild pain 07/20/24
alendronate 70 mg tablet (Fosamax) 70 mg PO WE OSTEOPOROSIS 07/20/24
ascorbic acid (vitamin C) 1,000 mg tablet (Vitamin C) 1,000 mg PO DAILY Supplement 07/20/24
bisacodyl 10 mg rectal suppository (Dulcolax (bisacodyl)) 10 mg [place] DAILYPRN PRN if no bm aftr mom 07/20/24
cholecalciferol (vitamin D3) 50 mcg (2,000 unit) capsule (Vitamin D3) 50 mcg PO DAILY Supplement 07/20/24
cyanocobalamin (vitamin B-12) 1,000 mcg tablet 2,000 mcg PO DAILY Supplement 07/20/24
docusate sodium 100 mg capsule (Colace) 100 mg PO BID Constipation 07/20/24
enoxaparin 40 mg/0.4 mL subcutaneous syringe (Lovenox) 40 mg SC DAILY Blood Clot Prevention/Tx 07/20/24
hydromorphone 2 mg tablet 2 mg PO Q4HPRN PRN severe pain 07/20/24
levothyroxine 50 mcg tablet (Synthroid) 50 mcg PO DAILY Thyroid 07/20/24
lisinopril 10 mg tablet 10 mg PO DAILY Blood Pressure 07/20/24
magnesium hydroxide 400 mg/5 mL oral suspension (Milk of Magnesia) 2,400 mg PO [id number] PRN constipation 07/20/24
menthol 0.44 %-zinc oxide 20.6 % topical ointment (Moisture Barrier Ointment) 1 applic topical TID Skin Issues 07/20/24
metformin 500 mg tablet 500 mg PO BID Diabetes 07/20/24
morphine 15 mg tablet,extended release 15 mg PO Q12H Pain 07/20/24
mycophenolate mofetil 500 mg tablet 1,000 mg PO BID INFLAMMATION 07/20/24
ondansetron 4 mg disintegrating tablet 4 mg PO Q6HPRN PRN nausea 07/20/24
pantoprazole 40 mg tablet,delayed release (Protonix) 40 mg PO BID Gastrointestinal Issue 07/20/24
prednisone 10 mg tablet 35 mg PO DAILY INFLA 07/20/24
rosuvastatin 20 mg tablet (Crestor) 20 mg PO DAILY High Cholesterol 07/20/24
sennosides 8.6 mg tablet (senna) 17.2 mg PO BIDPRN PRN constipation 07/20/24
sodium phosphates 19 gram-7 gram/118 mL enema (Fleet Enema) 118 ml [place] DAILYPRN PRN if no bm aftr dulcalox 07/20/24
zinc oxide 1 ea topical DAILYPRN PRN b/l buttock 07/20/24
zinc oxide 1 ea topical TID b/l buttock 07/20/24
baclofen 5 mg tablet 7.5 mg (1.5 x 5 mg) PO TID #0 tabs 08/02/24
ciprofloxacin HCl 500 mg tablet 500 mg PO BID 5 days #10 tabs 08/02/24
ferrous sulfate 325 mg (65 mg iron) tablet (FeroSul) 325 mg PO DAILY #0 tabs 08/02/24
hyoscyamine sulfate 0.125 mg sublingual tablet 0.125 mg PO BIDPRN PRN secretions #0 tabs 08/02/24
magnesium oxide 500 mg PO BID #30 tabs 08/02/24
metoprolol tartrate 25 mg tablet 25 mg PO BID #0 tabs 08/02/24
potassium chloride 20 mEq/15 mL oral liquid 40 meq (30 mL) PO DAILY #0 mL 08/02/24
pregabalin 100 mg capsule 200 mg (2 x 100 mg) PO TID #0 caps 08/02/24
pyridostigmine bromide 60 mg tablet 150 mg (2.5 x 60 mg) PO BID #0 tabs 08/02/24
thiamine HCl (vitamin B1) 100 mg capsule 100 mg PO DAILY #60 caps 08/02/24
Home Medication Changes
baclofen 5 mg tablet 7.5 mg (1.5 x 5 mg) PO TID #0 tabs 08/02/24
ciprofloxacin HCl 500 mg tablet 500 mg PO BID 5 days #10 tabs 08/02/24
ferrous sulfate 325 mg (65 mg iron) tablet (FeroSul) 325 mg PO DAILY #0 tabs 08/02/24
hyoscyamine sulfate 0.125 mg sublingual tablet 0.125 mg PO BIDPRN PRN secretions #0 tabs 08/02/24
magnesium oxide 500 mg PO BID #30 tabs 08/02/24
metoprolol tartrate 25 mg tablet 25 mg PO BID #0 tabs 08/02/24
potassium chloride 20 mEq/15 mL oral liquid 40 meq (30 mL) PO DAILY #0 mL 08/02/24
pregabalin 100 mg capsule 200 mg (2 x 100 mg) PO TID #0 caps 08/02/24
pyridostigmine bromide 60 mg tablet 150 mg (2.5 x 60 mg) PO BID #0 tabs 08/02/24
thiamine HCl (vitamin B1) 100 mg capsule 100 mg PO DAILY #60 caps 08/02/24
Pending Results: No
[2024-08-02 13:52] LABS: Glucose - Point of Care 96 mg/dl (70-99)
[2024-08-02 14:17] LABS: ALT (SGPT) 17 U/L (0-35); AST (SGOT) 16 U/L (14-36); Albumin 2.9 g/dl (3.5-5.0); Alkaline Phosphatase 83 U/L (38-126); Blood Urea Nitrogen 12 mg/dl (7-17); Calcium 8.3 mg/dl (8.4-10.2); Carbon Dioxide 22 mmol/L (22-30); Chloride 107 mmol/L (98-107); Estimated Creatinine Clearance 68 ml/min; Glucose 125 mg/dl (70-99); Potassium 4.9 mmol/L (3.5-5.1); Sodium 134 mmol/L (135-145); Total Bilirubin 0.7 mg/dl (0.2-1.3); Total Protein 4.7 g/dl (6.3-8.2); eGFR > 60.00
--- NOTE | 2024-08-02 15:03 | CM ---
Patient stable for d/c today per hospitalist. Repeat labs completed.
Spoke w/ [facility] admissions, agreeable to accept today
Patient will need ambulance transport, forms on chart
IMM verbally reviewed, copy on chart
Patient's daughter, Ashley, updated
[facility]
Report: [phone] ASK FOR NURSE

Plan: D/c to [facility]. Ambulance transport
--- NOTE | 2024-08-02 15:09 | W.DS.TRANS ---
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
-
Discharge Instructions:
Discharge Diagnosis/Procedures # Myasthenia gravis flare-up
#Acute urinary tract infection.
# SVT episode
#B/l pleural Effusion
#Lethargy
#Low grade fever
#UTI
#Thrombocytopenia
Diet Low Fat,Low Cholesterol
Activity As tolerated
Blood Work bmp and cbc in 5 days with pcp
Repeat thyroid panel in 4 to 6 weeks
Others Tests CXR outpatient - had minimal pleural effusions
Instructions:
Stand-Alone Forms:
Changes to Home Medications: Yes
Discharge Medications:
DC Medications w/original date entered in [employer]
acetaminophen 325 mg tablet (Tylenol) 650 mg PO Q6HPRN PRN mild pain 07/20/24
alendronate 70 mg tablet (Fosamax) 70 mg PO WE OSTEOPOROSIS 07/20/24
ascorbic acid (vitamin C) 1,000 mg tablet (Vitamin C) 1,000 mg PO DAILY Supplement 07/20/24
bisacodyl 10 mg rectal suppository (Dulcolax (bisacodyl)) 10 mg [place] DAILYPRN PRN if no bm aftr mom 07/20/24
cholecalciferol (vitamin D3) 50 mcg (2,000 unit) capsule (Vitamin D3) 50 mcg PO DAILY Supplement 07/20/24
cyanocobalamin (vitamin B-12) 1,000 mcg tablet 2,000 mcg PO DAILY Supplement 07/20/24
docusate sodium 100 mg capsule (Colace) 100 mg PO BID Constipation 07/20/24
enoxaparin 40 mg/0.4 mL subcutaneous syringe (Lovenox) 40 mg SC DAILY Blood Clot Prevention/Tx 07/20/24
hydromorphone 2 mg tablet 2 mg PO Q4HPRN PRN severe pain 07/20/24
levothyroxine 50 mcg tablet (Synthroid) 50 mcg PO DAILY Thyroid 07/20/24
lisinopril 10 mg tablet 10 mg PO DAILY Blood Pressure 07/20/24
magnesium hydroxide 400 mg/5 mL oral suspension (Milk of Magnesia) 2,400 mg PO [id number] PRN constipation 07/20/24
menthol 0.44 %-zinc oxide 20.6 % topical ointment (Moisture Barrier Ointment) 1 applic topical TID Skin Issues 07/20/24
metformin 500 mg tablet 500 mg PO BID Diabetes 07/20/24
morphine 15 mg tablet,extended release 15 mg PO Q12H Pain 07/20/24
mycophenolate mofetil 500 mg tablet 1,000 mg PO BID INFLAMMATION 07/20/24
ondansetron 4 mg disintegrating tablet 4 mg PO Q6HPRN PRN nausea 07/20/24
pantoprazole 40 mg tablet,delayed release (Protonix) 40 mg PO BID Gastrointestinal Issue 07/20/24
prednisone 10 mg tablet 35 mg PO DAILY INFLA 07/20/24
rosuvastatin 20 mg tablet (Crestor) 20 mg PO DAILY High Cholesterol 07/20/24
sennosides 8.6 mg tablet (senna) 17.2 mg PO BIDPRN PRN constipation 07/20/24
sodium phosphates 19 gram-7 gram/118 mL enema (Fleet Enema) 118 ml [place] DAILYPRN PRN if no bm aftr dulcalox 07/20/24
zinc oxide 1 ea topical DAILYPRN PRN b/l buttock 07/20/24
zinc oxide 1 ea topical TID b/l buttock 07/20/24
baclofen 5 mg tablet 7.5 mg (1.5 x 5 mg) PO TID 30 days #135 tabs 08/02/24
ciprofloxacin HCl 500 mg tablet 500 mg PO BID 5 days #10 tabs 08/02/24
ferrous sulfate 325 mg (65 mg iron) tablet (FeroSul) 325 mg PO DAILY #0 tabs 08/02/24
hyoscyamine sulfate 0.125 mg sublingual tablet 0.125 mg PO BIDPRN PRN secretions #0 tabs 08/02/24
magnesium oxide 500 mg PO BID #30 tabs 08/02/24
metoprolol tartrate 25 mg tablet 25 mg PO BID 30 days #60 tabs 08/02/24
pregabalin 100 mg capsule 200 mg (2 x 100 mg) PO TID 14 days #84 caps 08/02/24
pyridostigmine bromide 60 mg tablet 150 mg (2.5 x 60 mg) PO BID #0 tabs 08/02/24
thiamine HCl (vitamin B1) 100 mg capsule 100 mg PO DAILY #60 caps 08/02/24
Home Medication Changes
baclofen 5 mg tablet 7.5 mg (1.5 x 5 mg) PO TID 30 days #135 tabs 08/02/24
ciprofloxacin HCl 500 mg tablet 500 mg PO BID 5 days #10 tabs 08/02/24
ferrous sulfate 325 mg (65 mg iron) tablet (FeroSul) 325 mg PO DAILY #0 tabs 08/02/24
hyoscyamine sulfate 0.125 mg sublingual tablet 0.125 mg PO BIDPRN PRN secretions #0 tabs 08/02/24
magnesium oxide 500 mg PO BID #30 tabs 08/02/24
metoprolol tartrate 25 mg tablet 25 mg PO BID 30 days #60 tabs 08/02/24
pregabalin 100 mg capsule 200 mg (2 x 100 mg) PO TID 14 days #84 caps 08/02/24
pyridostigmine bromide 60 mg tablet 150 mg (2.5 x 60 mg) PO BID #0 tabs 08/02/24
thiamine HCl (vitamin B1) 100 mg capsule 100 mg PO DAILY #60 caps 08/02/24
Pending Results: No
[2024-08-02 16:00] LABS: Glucose - Point of Care 136 mg/dl (70-99)
[2024-08-02] MEDS: LIORESAL PO (17:15)
[2024-08-02] MEDS: LYRICA PO (17:17)
[2024-08-02 17:56] LABS: Haptoglobin 180 mg/dL (30-200)
[2024-08-02 23:26] LABS: Myeloperoxidase Antibody 0 AU/mL (0-19); Serine Protease-3, IgG 0 AU/mL (0-19)
[2024-08-03 03:35] LABS: Vitamin B6 Results <5.0 nmol/L (20.0-125.0)
[2024-08-03 10:10] LABS: IgA 84 mg/dL (68-408); IgG 346 mg/dL (768-1632); IgM 34 mg/dL (35-263)
[2024-08-03 10:31] LABS: Albumin 3.05 g/dL (3.75-5.01); Alpha 1 Globulin 0.18 g/dL (0.19-0.46); Alpha 2 Globulin 0.47 g/dL (0.48-1.05); SPEP IFE Reflex IFE Done; Total Protein-Electrophoresis 4.4 g/dL (6.3-8.2)
[2024-08-03 14:07] LABS: Vitamin B1, Whole Blood 100 nmol/L (70-180)
== END 2024-08-02 19:01 | DRG 56 ==
LOC: 4 WEST ACU 13:06
PROVIDERS: Family Medicine; Internal Medicine; Nurse Practitioner Acute Care; Psychiatry & Neurology Neurology; Radiology Diagnostic Radiology; Radiology Vascular & Interventional Radiology; Registered Nurse; ADMITTING PHYSICIAN Internal Medicine; ATTENDING PHYSICIAN Internal Medicine; CONSULT PHYSICIAN Internal Medicine; CONSULT PHYSICIAN Internal Medicine Gastroenterology; CONSULT PHYSICIAN Psychiatry & Neurology Clinical Neurophysiology; EMERGENCY PHYSICIAN Student in an Organized Health Care Education/Training Program; OTHER PHYSICIAN Internal Medicine; OTHER PHYSICIAN Internal Medicine Hematology & Oncology; OTHER PHYSICIAN Internal Medicine Infectious Disease
PROC: 0DH67UZ Insertion of Feeding Device into Stomach, Via Natural or Artificial Opening (ICD-10-PCS; 2024-07-24)
PROC: 0JH63XZ Insertion of Tunneled Vascular Access Device into Chest Subcutaneous Tissue and Fascia, Percutaneous Approach (ICD-10-PCS; 2024-07-24)
PROC: 02H633Z Insertion of Infusion Device into Right Atrium, Percutaneous Approach (ICD-10-PCS; 2024-07-24)
PROC: 009U3ZX Drainage of Spinal Canal, Percutaneous Approach, Diagnostic (ICD-10-PCS; 2024-07-25)
PROC: 6A551Z3 Pheresis of Plasma, Multiple (ICD-10-PCS; 2024-07-26)
PROC: 0DP6XUZ Removal of Feeding Device from Stomach, External Approach (ICD-10-PCS; 2024-07-26)
PROC: 30233K1 Transfusion of Nonautologous Frozen Plasma into Peripheral Vein, Percutaneous Approach (ICD-10-PCS; 2024-07-26)
PROC: 30233M1 Transfusion of Nonautologous Plasma Cryoprecipitate into Peripheral Vein, Percutaneous Approach (ICD-10-PCS; 2024-07-27)
DX: G70.01 Myasthenia gravis with (acute) exacerbation (principal); L89.153 Pressure ulcer of sacral region, stage 3; E87.1 Hypo-osmolality and hyponatremia; F11.20 Opioid dependence, uncomplicated; N39.0 Urinary tract infection, site not specified; I47.10 Supraventricular tachycardia, unspecified; D62 Acute posthemorrhagic anemia; D84.81 Immunodeficiency due to conditions classified elsewhere; J90 Pleural effusion, not elsewhere classified; M80.08XA Age-related osteoporosis with current pathological fracture, vertebra(e), initial encounter for fracture; D68.8 Other specified coagulation defects; E89.0 Postprocedural hypothyroidism; G89.4 Chronic pain syndrome; F32.A Depression, unspecified; I10 Essential (primary) hypertension; K21.9 Gastro-esophageal reflux disease without esophagitis; E78.00 Pure hypercholesterolemia, unspecified; R13.19 Other dysphagia; I48.91 Unspecified atrial fibrillation; R55 Syncope and collapse; G54.5 Neuralgic amyotrophy; T38.0X5A Adverse effect of glucocorticoids and synthetic analogues, initial encounter; D50.9 Iron deficiency anemia, unspecified; E83.42 Hypomagnesemia; R53.83 Other fatigue; D69.6 Thrombocytopenia, unspecified; B96.5 Pseudomonas (aeruginosa) (mallei) (pseudomallei) as the cause of diseases classified elsewhere; D69.49 Other primary thrombocytopenia; E11.649 Type 2 diabetes mellitus with hypoglycemia without coma; Z11.52 Encounter for screening for COVID-19; Z88.5 Allergy status to narcotic agent; Z88.6 Allergy status to analgesic agent; Z96.659 Presence of unspecified artificial knee joint; Z96.649 Presence of unspecified artificial hip joint; Z85.3 Personal history of malignant neoplasm of breast; Z79.899 Other long term (current) drug therapy; Z79.890 Hormone replacement therapy; Z79.84 Long term (current) use of oral hypoglycemic drugs; Z79.83 Long term (current) use of bisphosphonates; Z79.624 Long term (current) use of inhibitors of nucleotide synthesis
CPT/HCPCS: 36556; 51701; 62328; 70450; 70551; 71045; 72156; 72197; 74018; 76937; 77001; 80048; 80053; 80061; 81003; 81015; 82164; 82330; 82550; 82607; 82728; 82746; 82784; 82805; 82945; 82962; 83010; 83036; 83516; 83540; 83550; 83605; 83615; 83735; 84100; 84155; 84157; 84165; 84207; 84425; 84439; 84443; 84484; 85025; 85027; 85045; 85379; 85384; 85610; 85652; 85730; 86140; 86235; 86334; 86592; 86850; 86900; 86901; 86927; 87015; 87040; 87045; 87046; 87070; 87077; 87086; 87102; 87116; 87186; 87205; 87324; 87327; 87427; 87449; 87483; 87502; 87798; 87811; 88108; 89051; 92526; 92610; 93005; 93306; 93970; 95816; 95886; 95913; 96374; 97110; 97112; 97163; 97167; 97530; 97535; 99285; A9575; C1752; J0153; P9012; P9045; P9059